=== PATIENT | male | born 1940 | race Caucasian/White ===

== ENCOUNTER 2019-01-30 21:28 | Emergency (ER) | payer MEDICARE, OTHER ==
[2019-01-30 21:37] VITALS: BP 109/59
--- NOTE | 2019-01-30 22:31 | EDM.PDOC ---
ED HPI GENERAL MEDICAL PROBLEM - General Chief Complaint: Laceration Stated Complaint: fell at home Time Seen by Provider: 01/30/19 21:36 Source of Information: Reports: Patient, Family, Shelter Records, RN Notes Reviewed History Limitations: Reports: No Limitations - History of Present Illness INITIAL COMMENTS - FREE TEXT/NARRATIVE: Patient is an 78-year-old male who is a resident at [place] who presents with his daughter for the evaluation of a fall. He states that around approximately 7 PM tonight he had spilled some food on the floor and he went to pick this food up from the floor when he lost his balance. He ended up hitting his on the carpeted floor in front of him. He denies any dizziness before the fall. He denies any loss of consciousness, blacking out, or headache after the fall. He has one abrasion on the bridge of his nose and a small laceration to his left eyebrow. It did take some time for the bleeding to stop in his left eyebrow injury. The patient states that he is only on aspirin and not on any other blood thinners. He further denies any blurred/double vision at this time , he denies pain anywhere else as well. - Related Data Allergies Allergy/AdvReac Type Severity Reaction Status Date / Time amlodipine Allergy Cannot Verified 01/30/19 21:37 Remember amlodipine besylate Allergy Cannot Verified 01/30/19 21:37 [From [facility]] Remember Home Meds: Home Meds Acetaminophen [Tylenol Arthritis Pain] 650 mg PO BID 02/19/16 [History] Acetaminophen [Tylenol Arthritis Pain] 650 mg PO Q8H PRN 02/19/16 [History] Calcium Carbonate/Vitamin D3 [Calcium 600-Vit D3 400 Tablet] 1 each PO BID 02/18 [History] Dextran 70/Hypromellose [Artificial Tears] 1 drop OP TID 02/19/16 [History] Fluticasone Propionate [Flonase] 1 spray NASBOTH DAILY 02/19/16 [History] Furosemide [Lasix] 80 mg PO DAILY 02/19/16 [History] Glucosamine/D3/Boswellia Miri [Osteo Bi-Flex Caplet] 1 each PO BID 02/19/16 [ History] Labetalol [Normodyne] 100 mg PO BID 02/19/16 [History] Levothyroxine Sodium [Synthroid] 125 mcg PO DAILY 02/19/16 [History] Mag Hydrox/Aluminum Hyd/Simeth [Antacid Liquid] 30 ml PO Q4H PRN 02/19/16 [ History] Meloxicam 15 mg PO DAILY 02/19/16 [History] Multivitamin [Multivitamins] 1 each PO DAILY 02/19/16 [History] Potassium Chloride 20 meq PO DAILY 02/19/16 [History] Spironolactone [Aldactone] 25 mg PO BID 02/19/16 [History] traZODone 150 mg PO BEDTIME 02/19/16 [History] Aspirin 325 mg PO DAILY PRN 01/30/19 [History] Furosemide 40 mg PO 1200 01/30/19 [History] Ibuprofen [Advil] 400 mg PO Q6H PRN 01/30/19 [History] Zolpidem [Ambien] 5 mg PO BEDTIME PRN 01/30/19 [History] Past Medical History - Past Health History Medical/Surgical History: Denies Medical/Surgical History HEENT History: Reports: Hard of Hearing, Impaired Vision Cardiovascular History: Reports: CAD, Heart Failure, High Cholesterol, Hypertension Musculoskeletal History: Reports: Arthritis, Back Pain, Chronic, Other (See Below) Other Musculoskeletal History: DDD Neurological History: Reports: Other (See Below) Other Neuro History: Dementia Psychiatric History: Reports: Dementia Endocrine/Metabolic History: Reports: Hypothyroidism Social & Family History - Family History Cardiac: Reports: Pacemaker GI: Reports: Other (See Below) Other GI Family History: STOMACH CANCER - Tobacco Use Smoking Status *Q: Never Smoker - Recreational Drug Use Recreational Drug Use: No ED ROS GENERAL - Review of Systems Review Of Systems: See Below Constitutional: Reports: No Symptoms HEENT: Reports: No Symptoms Respiratory: Reports: No Symptoms Cardiovascular: Reports: No Symptoms Endocrine: Reports: No Symptoms GI/Abdominal: Reports: No Symptoms : Reports: No Symptoms Musculoskeletal: Reports: No Symptoms Skin: Reports: Wound (See history of present illness) Neurological: Denies: Confusion, Dizziness, Headache, Seizure, Syncope, Difficulty Walking, Weakness Psychiatric: Reports: No Symptoms Hematologic/Lymphatic: Reports: No Symptoms Immunologic: Reports: No Symptoms ED EXAM, SKIN/RASH Exam: See Below Exam Limited By: No Limitations General Appearance: Alert, WD/WN, No Apparent Distress Eye Exam: Left Eye: Periorbital Changes (Bruising noted around his left eye, due to the trauma sustained to his left eyebrow.), Bilateral Eye: Normal Inspection Ears: Normal External Exam, Normal TMs Nose: Other (Small laceration to bridge of nose that is scabbed over and not actively bleeding at this time. No nasal bleeding noted no nasal tenderness noted) Throat/Mouth: Normal Inspection, Normal Lips, Normal Teeth, Normal Oropharynx, Normal Voice, No Airway Compromise Head: Normocephalic, Other (Laceration to left eyebrow and abrasion to bridge of nose) Neck: Normal Inspection, Supple, Non-Tender, Full Range of Motion Respiratory/Chest: No Respiratory Distress, Lungs Clear, Normal Breath Sounds, No Accessory Muscle Use, Chest Non-Tender Cardiovascular: Normal Peripheral Pulses, Regular Rate, Rhythm, No Edema, No Murmur Extremities: Normal Inspection, Normal Capillary Refill Neurological: Alert, Oriented, Normal Cognition, Normal Gait, No Motor/Sensory Deficits Psychiatric: Normal Affect, Normal Mood Skin: Warm, Dry, Normal Color, No Rash, Wound/Incision (Approximately 1 cm linear laceration to the left eyebrow.) Location, Skin: Face ED SKIN PROCEDURES - Laceration/Wound Repair Medial Nose Lac/Wound length In cm: 1 (Skin abrasion) Skin Prep: Saline Closed with: Dermabond Left Face Lac/Wound length In cm: 1 (Left eyebrow) Appearance: Clean Skin Prep: Saline Closed with: Dermabond, Steri-Strips Course - Vital Signs Last Recorded V/S: Last Vital Signs Temp 98.8 F 01/30/19 21:34 Pulse 56 L 01/30/19 21:34 Resp 16 01/30/19 21:34 BP 109/59 L 01/30/19 21:34 Pulse Ox 96 01/30/19 21:34 Orthostatic Blood Pressure [] 81/48 Orthostatic Blood Pressure [] 105/61 Orthostatic Blood Pressure [] 105/56 - Re-Assessments/Exams Free Text/Narrative Re-Assessment/Exam: 01/30/19 22:34 Patient presents to the ED for the evaluation of a fall earlier this evening. He did sustain a small abrasion to his nose which will likely be repaired with Dermabond and does have a 1 cm linear laceration to his left eyebrow. I am having the nurse clean these up and will likely try to either use Dermabond on the eyebrow or Steri-Strips for repair. These do not appear to be deep enough to need stitches at this time. I have also requested that the nurse do orthostatic vital signs as the patient's blood pressure at time of evaluation was 90/60. The patient assures me that he gets his blood pressure checked at the skilled nursing and that this is within normal limits and there is no need to worry. Due to the mechanism of injury to this fall I do not feel that a head CT is warranted due to lack of symptoms at this time. The daughter will be educated on return precautions. Departure - Departure Time of Disposition: 23:01 Disposition: Home, Self-Care 01 Condition: Fair Clinical Impression: Laceration of left eyebrow Qualifiers: Encounter type: initial encounter Qualified Code(s): S01.112A - Laceration without foreign body of left eyelid and periocular area, initial encounter Abrasion of nose Qualifiers: Encounter type: initial encounter Qualified Code(s): S00.31XA - Abrasion of nose, initial encounter - Discharge Information *PRESCRIPTION DRUG MONITORING PROGRAM REVIEWED*: No *COPY OF PRESCRIPTION DRUG MONITORING REPORT IN PATIENT TWAN: No Instructions: Stitches, Chao, or Adhesive Wound Closure, [id number], Sterile Tape Wound Care Referrals: Stan Kang MD [Primary Care Provider] - Forms: ED Department Discharge Additional Instructions: You have been evaluated in the ED today for your left eyebrow laceration and nose abrasion. These have been treated with Dermabond and your left eyebrow has been also treated with Steri-Strips. Do not be surprised if you develop a worsening black eye over the next few days as this would be the blood settling. This should get better shortly. If you should develop any worsening headache, increased blurred vision/double vision, dizziness these would be cause for concern and you should come directly back to the ED for further evaluation. Please return to the ED if his symptoms should change or worsen.
== END 2019-01-30 23:15 | disposition home or self-care (01) ==
LOC: JD.ED 21:28
DX: S01.112A Laceration without foreign body of left eyelid and periocular area, initial encounter (principal); S00.31XA Abrasion of nose, initial encounter; I25.10 Atherosclerotic heart disease of native coronary artery without angina pectoris; I50.9 Heart failure, unspecified; E78.00 Pure hypercholesterolemia, unspecified; I10 Essential (primary) hypertension; E03.9 Hypothyroidism, unspecified; Z88.8 Allergy status to other drugs, medicaments and biological substances; W01.0XXA Fall on same level from slipping, tripping and stumbling without subsequent striking against object, initial encounter; Z79.899 Other long term (current) drug therapy
CPT/HCPCS: 12011; 99282; 99283

== ENCOUNTER 2021-06-20 15:38 | Inpatient (IN) | payer MEDICARE, OTHER ==
--- NOTE | 2021-06-20 16:42 | CR ---
Chest: Portable view of the chest was obtained. Comparison: Chest x-ray of 04/03/16. Small right-sided pleural effusion is seen. Areas of scarring are seen within the right base. These findings are stable from prior exam. Multiple left-sided rib fractures are noted which are stable. Severe degenerative change is seen within the right shoulder. Heart size is mildly enlarged. Upper mediastinum is normal. Impression: 1. Numerous findings as noted above. 2. Nothing acute is appreciated on portable chest x-ray. Diagnostic code #2
--- NOTE | 2021-06-20 16:58 | EDM.PDOC ---
ED HPI GENERAL MEDICAL PROBLEM - General Chief Complaint: Respiratory Problem Stated Complaint: SOB/COUGH Time Seen by Provider: 06/20/21 16:20 Source of Information: Reports: Patient, RN Notes Reviewed History Limitations: Reports: No Limitations - History of Present Illness INITIAL COMMENTS - FREE TEXT/NARRATIVE: Patient is an 81-year-old male who presents to the ER with a family member for the evaluation of his cough and shortness of breath. Patient resides at [place]. The family member notes that over the last few days, his cough has gotten significantly worse, and the patient is complaining of shortness of breath. He does state that he has had a cough for some months, but he has an increase in clear phlegm production. The family member the room states that th is is very sick. The patient is very hard of hearing, so the family member provided most of the history. Patient has had a large amount of watery diarrhea as well, and he has had a poor appetite with subsequent weight loss. There is associated weakness, and back discomfort. Family member did state that this seems to have sharply declined over the last 2 weeks as well. He is being seen by Dr. Morrison, and is supposed to be having an ultrasound, of the kidneys, and a chest CT for nodule that was identified. This is supposed to be getting done outpatient. Patient is on oxygen as needed at night as well. Patient did have Covid last year, and has subsequently gotten the mold during a vaccine and is fully vaccinated. He has not had any fevers, or chills, he has had the increased cough, and dyspnea but no nausea or vomiting. - Related Data Allergies Allergy/AdvReac Type Severity Reaction Status Date / Time amlodipine Allergy Cannot Verified 06/20/21 16:06 Remember amlodipine besylate Allergy Cannot Verified 06/20/21 16:06 [From [facility]] Remember Home Meds: Home Meds Acetaminophen [Tylenol Arthritis Pain] 650 mg PO BID 02/19/16 [History] Acetaminophen [Tylenol Arthritis Pain] 650 mg PO Q8H PRN 02/19/16 [History] Calcium Carbonate/Vitamin D3 [Calcium 600-Vit D3 400 Tablet] 1 each PO BID 02/19/16 [History] Fluticasone Propionate [Flonase] 1 spray NASBOTH DAILY 02/19/16 [History] Glucosamine/D3/Boswellia Miri [Osteo Bi-Flex Caplet] 1 each PO BID 02/19/16 [History] Labetalol [Normodyne] 100 mg PO BID 02/19/16 [History] Levothyroxine Sodium [Synthroid] 125 mcg PO DAILY 02/19/16 [History] Mag Hydrox/Aluminum Hyd/Simeth [Antacid Liquid] 30 ml PO Q4H PRN 02/19/16 [History] Meloxicam 15 mg PO DAILY 02/19/16 [History] Multivitamin [Multivitamins] 1 each PO DAILY 02/19/16 [History] Potassium Chloride 20 meq PO DAILY 02/19/16 [History] traZODone 150 mg PO BEDTIME 02/19/16 [History] Ibuprofen [Advil] 400 mg PO Q6H PRN 01/30/19 [History] Carboxymethylcellulose Sodium [Artificial Tears] 15 ml EYEBOTH QID 06/20/21 [History] Cyanocobalamin (Vitamin B-12) [Vitamin B-12] 1 tab PO DAILY 06/20/21 [History] Furosemide [Lasix] 40 mg PO BID 06/20/21 [History] Glucosamine/D3/Boswellia Miri [Osteo Bi-Flex Caplet] 1 tab PO BID 06/20/21 [History] Mirtazapine [Remeron] 15 mg PO DAILY 06/20/21 [History] Tiotropium [place] [Spiriva Respimat] 2 puff IH DAILY 06/20/21 [History] Past Medical History HEENT History: Reports: Hard of Hearing, Impaired Vision 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 Cardiovascular History: Reports: CAD, Heart Failure, High Cholesterol, Hypertension Musculoskeletal History: Reports: Arthritis, Back Pain, Chronic, Other (See Below) Other Musculoskeletal History: DJD Psychiatric History: Reports: Dementia Endocrine/Metabolic History: Reports: Hypothyroidism Oncologic (Cancer) History: Reports: Other (See Below) Other Oncologic History: lung nodule- that pcp is monitoring - Infectious Disease History Infectious Disease History: Reports: Novel Coronavirus (in aug 2020) Social & Family History - Family History Cardiac: Reports: Pacemaker GI: Reports: Other (See Below) Other GI Family History: STOMACH CANCER - Tobacco Use Packs/Tins Daily: 0.2 Used Tobacco, but Quit: No - Caffeine Use Caffeine Use: Reports: Coffee - Recreational Drug Use Recreational Drug Use: No ED ROS GENERAL - Review of Systems Review Of Systems: Comprehensive ROS is negative, except as noted in HPI. ED EXAM, GENERAL - Physical Exam Exam: See Below Exam Limited By: No Limitations General Appearance: Alert, WD/WN, No Apparent Distress Respiratory/Chest: No Respiratory Distress, Lungs Clear, Normal Breath Sounds, No Accessory Muscle Use, Chest Non-Tender Cardiovascular: Normal Peripheral Pulses, Regular Rate, Rhythm, No Edema Peripheral Pulses: 2+: Radial (L), Radial (R) GI/Abdominal: Normal Bowel Sounds, Soft, Non-Tender, No Distention, No Mass Extremities: Normal Inspection, Normal Capillary Refill Neurological: Alert, Oriented, Normal Cognition, No Motor/Sensory Deficits Psychiatric: Normal Affect, Normal Mood Skin Exam: Warm, Dry, Intact, Normal Color, No Rash #1 Interpretation EKG Date: 06/20/21 Time: 16:33 Rhythm: NSR Rate (Beats/Min): 71 [place]: Normal P-Wave: Present QRS: Normal ST-T: Normal QT: Normal EKG Interpretation Comments: No obvious ischemia or acute ST changes noted, reviewed by myself and Dr. Sanchez. Course - Vital Signs Last Recorded V/S: Last Vital Signs Temp 98.1 F 06/20/21 15:59 Pulse 70 06/20/21 15:59 Resp 20 06/20/21 15:59 BP 107/76 06/20/21 15:59 Pulse Ox 98 06/20/21 15:59 - Orders/Labs/Meds Orders: Active Orders 24 hr Category Date Time Status EKG Documentation Completion [RC] STAT Care 06/20/21 16:21 Active Peripheral IV Care [RC] . DIRECTED Care 06/20/21 18:11 Active PROCALCITONIN [REF] Stat Lab 06/20/21 20:19 Ordered Sodium Chloride 0.9% [Normal Saline] 45 ml Med 06/20/21 18:45 Active IV ASDIRECTED Sodium Chloride 0.9% [Saline Flush] Med 06/20/21 18:11 Active 10 ml FLUSH ASDIRECTED PRN Sodium Chloride 0.9% [Saline Flush] Med 06/20/21 18:42 Active 10 ml FLUSH ONETIME PRN Peripheral IV Insertion Adult [OM.PC] Routine Oth 06/20/21 18:11 Ordered Medication Orders Sodium Chloride (Normal Saline) 45 mls @ 40 mls/hr IV ASDIRECTED BLAYNE Last Admin: 06/20/21 19:42 Dose: 40 mls/hr Documented by: SHERRY Sodium Chloride (Sodium Chloride 0.9% 10 Ml Syringe) 10 ml FLUSH ASDIRECTED PRN PRN Reason: Keep Vein Open Sodium Chloride (Sodium Chloride 0.9% 10 Ml Syringe) 10 ml FLUSH ONETIME PRN PRN Reason: Keep Vein Open Last Admin: 06/20/21 19:42 Dose: 10 ml Documented by: SHERRY Labs: Laboratory Tests 06/20/21 06/20/21 06/20/21 Range/Units 16:33 16:33 16:33 WBC 10.83 H (4.23-9.07) K/mm3 RBC 4.50 L (4.63-6.08) M/mm3 Hgb 14.6 D (13.7-17.5) gm/dl Hct 41.8 (40.1-51.0) % MCV 92.9 H (79.0-92.2) fl MCH 32.4 H (25.7-32.2) pg MCHC 34.9 (32.2-35.5) g/dl RDW Std Deviation 48.1 H (35.1-43.9) fL Plt Count 223 D (163-337) K/mm3 MPV 9.2 L (9.4-12.3) fl Neut % (Auto) 84.5 H (34.0-67.9) % Lymph % (Auto) 8.9 L (21.8-53.1) % Bro[place] % (Auto) 5.8 (5.3-12.2) % Eos % (Auto) 0.6 L (0.8-7.0) Baso % (Auto) 0.2 (0.1-1.2) % Neut # (Auto) 9.15 H (1.78-5.38) K/mm3 Lymph # (Auto) 0.96 L (1.32-3.57) K/mm3 Brooke # (Auto) 0.63 (0.30-0.82) K/mm3 Eos # (Auto) 0.07 (0.04-0.54) K/mm3 Baso # (Auto) 0.02 (0.01-0.08) K/mm3 Manual Slide Review Abnormal smear PT 11.0 (9.7-12.0) SECONDS INR 1.03 APTT 29.7 (21.7-31.4) SECONDS D-Dimer, Quantitative 1.52 H (0.19-0.50) mg/L Sodium (136-145) mEq/L Potassium (3.5-5.1) mEq/L Chloride (98-107) mEq/L Carbon Dioxide (21-32) mEq/L Anion Gap (5-15) BUN (7-18) mg/dL Creatinine (0.7-1.3) mg/dL Est Cr Clr Drug Dosing mL/min Estimated GFR (MDRD) (>60) mL/min BUN/Creatinine Ratio (14-18) Glucose (70-99) mg/dL Calcium (8.5-10.1) mg/dL Magnesium (1.8-2.4) mg/dL Ferritin (26-388) ng/ml Total Bilirubin (0.2-1.0) mg/dL AST (15-37) U/L ALT (16-63) U/L Alkaline Phosphatase (46-116) U/L Lactate Dehydrogenase (85-227) U/L Troponin I (0.00-0.056) ng/mL C-Reactive Protein 2.0 H* (<1.0) mg/dL NT-Pro-B Natriuret Pep (0-450) pg/mL Total Protein (6.4-8.2) g/dl Albumin (3.4-5.0) g/dl Globulin gm/dL Albumin/Globulin Ratio (1-2) Urine Color (Yellow) Urine Appearance (Clear) Urine pH (5.0-8.0) Ur Specific [place] (1.005-1.030) Urine Protein (Negative) Urine Glucose (UA) (Negative) Urine Ketones (Negative) Urine Occult Blood (Negative) Urine Nitrite (Negative) Urine Bilirubin (Negative) Urine Urobilinogen (0.2-1.0) Ur Leukocyte Esterase (Negative) Urine RBC (0-5) /hpf Urine WBC (0-5) /hpf Ur Squamous Epith Cells (0-5) /hpf Urine Bacteria (FEW) /hpf Urine Mucus (FEW) /hpf Influenza Type A RNA (NEGATIVE) Influenza Type B RNA (NEGATIVE) SARS-CoV-2 RNA (TIM) (NEGATIVE) 06/20/21 06/20/21 06/20/21 Range/Units 16:33 16:33 16:33 WBC (4.23-9.07) K/mm3 RBC (4.63-6.08) M/mm3 Hgb (13.7-17.5) gm/dl Hct (40.1-51.0) % MCV (79.0-92.2) fl MCH (25.7-32.2) pg MCHC (32.2-35.5) g/dl RDW Std Deviation (35.1-43.9) fL Plt Count (163-337) K/mm3 MPV (9.4-12.3) fl Neut % (Auto) (34.0-67.9) % Lymph % (Auto) (21.8-53.1) % Brooke % (Auto) (5.3-12.2) % Eos % (Auto) (0.8-7.0) Baso % (Auto) (0.1-1.2) % Neut # (Auto) (1.78-5.38) K/mm3 Lymph # (Auto) (1.32-3.57) K/mm3 Bro[place] # (Auto) (0.30-0.82) K/mm3 Eos # (Auto) (0.04-0.54) K/mm3 Baso # (Auto) (0.01-0.08) K/mm3 Manual Slide Review PT (9.7-12.0) SECONDS INR APTT (21.7-31.4) SECONDS D-Dimer, Quantitative (0.19-0.50) mg/L Sodium 132 L (136-145) mEq/L Potassium 5.6 H D (3.5-5.1) mEq/L Chloride 101 (98-107) mEq/L Carbon Dioxide 23 (21-32) mEq/L Anion Gap 13.6 (5-15) BUN 29 H (7-18) mg/dL Creatinine 1.7 H (0.7-1.3) mg/dL Est Cr Clr Drug Dosing 32.74 mL/min Estimated GFR (MDRD) 39 (>60) mL/min BUN/Creatinine Ratio 17.1 (14-18) Glucose 115 H (70-99) mg/dL Calcium 8.5 (8.5-10.1) mg/dL Magnesium 2.0 (1.8-2.4) mg/dL Ferritin 995 H (26-388) ng/ml Total Bilirubin 0.6 (0.2-1.0) mg/dL AST 23 (15-37) U/L ALT 30 (16-63) U/L Alkaline Phosphatase 104 (46-116) U/L Lactate Dehydrogenase 186 (85-227) U/L Troponin I 0.052 (0.00-0.056) ng/mL C-Reactive Protein (<1.0) mg/dL NT-Pro-B Natriuret Pep 1329 H (0-450) pg/mL Total Protein 6.7 (6.4-8.2) g/dl Albumin 3.0 L (3.4-5.0) g/dl Globulin 3.7 gm/dL Albumin/Globulin Ratio 0.8 L (1-2) Urine Color (Yellow) Urine Appearance (Clear) Urine pH (5.0-8.0) Ur Specific [place] (1.005-1.030) Urine Protein (Negative) Urine Glucose (UA) (Negative) Urine Ketones (Negative) Urine Occult Blood (Negative) Urine Nitrite (Negative) Urine Bilirubin (Negative) Urine Urobilinogen (0.2-1.0) Ur Leukocyte Esterase (Negative) Urine RBC (0-5) /hpf Urine WBC (0-5) /hpf Ur Squamous Epith Cells (0-5) /hpf Urine Bacteria (FEW) /hpf Urine Mucus (FEW) /hpf Influenza Type A RNA (NEGATIVE) Influenza Type B RNA (NEGATIVE) SARS-CoV-2 RNA (TIM) (NEGATIVE) 06/20/21 06/20/21 06/20/21 Range/Units 16:52 18:15 18:29 WBC (4.23-9.07) K/mm3 RBC (4.63-6.08) M/mm3 Hgb (13.7-17.5) gm/dl Hct (40.1-51.0) % MCV (79.0-92.2) fl MCH (25.7-32.2) pg MCHC (32.2-35.5) g/dl RDW Std Deviation (35.1-43.9) fL Plt Count (163-337) K/mm3 MPV (9.4-12.3) fl Neut % (Auto) (34.0-67.9) % Lymph % (Auto) (21.8-53.1) % [place] % (Auto) (5.3-12.2) % Eos % (Auto) (0.8-7.0) Baso % (Auto) (0.1-1.2) % Neut # (Auto) (1.78-5.38) K/mm3 Lymph # (Auto) (1.32-3.57) K/mm3 [place] # (Auto) (0.30-0.82) K/mm3 Eos # (Auto) (0.04-0.54) K/mm3 Baso # (Auto) (0.01-0.08) K/mm3 Manual Slide Review PT (9.7-12.0) SECONDS INR APTT (21.7-31.4) SECONDS D-Dimer, Quantitative (0.19-0.50) mg/L Sodium (136-145) mEq/L Potassium 5.5 H (3.5-5.1) mEq/L Chloride (98-107) mEq/L Carbon Dioxide (21-32) mEq/L Anion Gap (5-15) BUN (7-18) mg/dL Creatinine (0.7-1.3) mg/dL Est Cr Clr Drug Dosing mL/min Estimated GFR (MDRD) (>60) mL/min BUN/Creatinine Ratio (14-18) Glucose (70-99) mg/dL Calcium (8.5-10.1) mg/dL Magnesium (1.8-2.4) mg/dL Ferritin (26-388) ng/ml Total Bilirubin (0.2-1.0) mg/dL AST (15-37) U/L ALT (16-63) U/L Alkaline Phosphatase (46-116) U/L Lactate Dehydrogenase (85-227) U/L Troponin I (0.00-0.056) ng/mL C-Reactive Protein (<1.0) mg/dL NT-Pro-B Natriuret Pep (0-450) pg/mL Total Protein (6.4-8.2) g/dl Albumin (3.4-5.0) g/dl Globulin gm/dL Albumin/Globulin Ratio (1-2) Urine Color Yellow (Yellow) Urine Appearance Clear (Clear) Urine pH 6.0 (5.0-8.0) Ur Specific [place] 1.020 (1.005-1.030) Urine Protein Negative (Negative) Urine Glucose (UA) Negative (Negative) Urine Ketones Negative (Negative) Urine Occult Blood 2+ H (Negative) Urine Nitrite Negative (Negative) Urine Bilirubin Negative (Negative) Urine Urobilinogen 0.2 (0.2-1.0) Ur Leukocyte Esterase Negative (Negative) Urine RBC 5-10 H (0-5) /hpf Urine WBC 0-5 (0-5) /hpf Ur Squamous Epith Cells 0-5 (0-5) /hpf Urine Bacteria Few (FEW) /hpf Urine Mucus Few (FEW) /hpf Influenza Type A RNA Negative (NEGATIVE) Influenza Type B RNA Negative (NEGATIVE) SARS-CoV-2 RNA (TIM) Negative (NEGATIVE) 06/20/21 Range/Units 19:22 WBC (4.23-9.07) K/mm3 RBC (4.63-6.08) M/mm3 Hgb (13.7-17.5) gm/dl Hct (40.1-51.0) % MCV (79.0-92.2) fl MCH (25.7-32.2) pg MCHC (32.2-35.5) g/dl RDW Std Deviation (35.1-43.9) fL Plt Count (163-337) K/mm3 MPV (9.4-12.3) fl Neut % (Auto) (34.0-67.9) % Lymph % (Auto) (21.8-53.1) % [place] % (Auto) (5.3-12.2) % Eos % (Auto) (0.8-7.0) Baso % (Auto) (0.1-1.2) % Neut # (Auto) (1.78-5.38) K/mm3 Lymph # (Auto) (1.32-3.57) K/mm3 [place] # (Auto) (0.30-0.82) K/mm3 Eos # (Auto) (0.04-0.54) K/mm3 Baso # (Auto) (0.01-0.08) K/mm3 Manual Slide Review PT (9.7-12.0) SECONDS INR APTT (21.7-31.4) SECONDS D-Dimer, Quantitative (0.19-0.50) mg/L Sodium (136-145) mEq/L Potassium (3.5-5.1) mEq/L Chloride (98-107) mEq/L Carbon Dioxide (21-32) mEq/L Anion Gap (5-15) BUN (7-18) mg/dL Creatinine (0.7-1.3) mg/dL Est Cr Clr Drug Dosing mL/min Estimated GFR (MDRD) (>60) mL/min BUN/Creatinine Ratio (14-18) Glucose (70-99) mg/dL Calcium (8.5-10.1) mg/dL Magnesium (1.8-2.4) mg/dL Ferritin (26-388) ng/ml Total Bilirubin (0.2-1.0) mg/dL AST (15-37) U/L ALT (16-63) U/L Alkaline Phosphatase (46-116) U/L Lactate Dehydrogenase (85-227) U/L Troponin I 0.062 H* (0.00-0.056) ng/mL C-Reactive Protein (<1.0) mg/dL NT-Pro-B Natriuret Pep (0-450) pg/mL Total Protein (6.4-8.2) g/dl Albumin (3.4-5.0) g/dl Globulin gm/dL Albumin/Globulin Ratio (1-2) Urine Color (Yellow) Urine Appearance (Clear) Urine pH (5.0-8.0) Ur Specific [place] (1.005-1.030) Urine Protein (Negative) Urine Glucose (UA) (Negative) Urine Ketones (Negative) Urine Occult Blood (Negative) Urine Nitrite (Negative) Urine Bilirubin (Negative) Urine Urobilinogen (0.2-1.0) Ur Leukocyte Esterase (Negative) Urine RBC (0-5) /hpf Urine WBC (0-5) /hpf Ur Squamous Epith Cells (0-5) /hpf Urine Bacteria (FEW) /hpf Urine Mucus (FEW) /hpf Influenza Type A RNA (NEGATIVE) Influenza Type B RNA (NEGATIVE) SARS-CoV-2 RNA (TIM) (NEGATIVE) Meds: Medications Generic Name Dose Route Start Last Admin Trade Name Freq PRN Reason Stop Dose Admin Sodium Chloride 45 mls @ 40 mls/hr 06/20/21 18:45 06/20/21 19:42 Normal Saline IV 40 mls/hr ASDIRECTED BLAYNE Administration Sodium Chloride 10 ml 06/20/21 18:11 Sodium Chloride 0.9% 10 Ml Syringe FLUSH ASDIRECTED PRN Keep Vein Open Sodium Chloride 10 ml 06/20/21 18:42 06/20/21 19:42 Sodium Chloride 0.9% 10 Ml Syringe FLUSH 10 ml ONETIME PRN Administration Keep Vein Open Discontinued Medications Generic Name Dose Route Start Last Admin Trade Name Freq PRN Reason Stop Dose Admin Aspirin 324 mg 06/20/21 20:28 Aspirin 81 Mg Tab.Chew PO 06/20/21 20:29 ONETIME ONE Azithromycin 500 mg 06/20/21 20:26 Azithromycin 250 Mg Tab PO 06/20/21 20:27 ONETIME ONE Cefdinir 300 mg 06/20/21 20:23 Cefdinir 300 Mg Cap PO 06/20/21 20:24 ONETIME ONE Furosemide 40 mg 06/20/21 20:23 Furosemide 40 Mg/4 Ml Vial IVPUSH 06/20/21 20:24 NOW ONE Sodium Chloride 1,000 mls @ 500 mls/hr 06/20/21 18:29 06/20/21 19:00 Normal Saline IV 06/20/21 20:28 100 mls/hr ONETIME ONE Infusion Iopamidol 100 ml 06/20/21 18:42 06/20/21 19:42 Iopamidol 755 Mg/Ml 100 Ml Bottle IVPUSH 06/20/21 18:43 100 ml ONETIME ONE Administration Labetalol HCl 100 mg 06/20/21 20:28 Labetalol 100 Mg Tab PO 06/20/21 20:29 ONETIME ONE Prednisone 60 mg 06/20/21 20:23 Prednisone 20 Mg Tab PO 06/20/21 20:24 ONETIME ONE - Re-Assessments/Exams Free Text/Narrative Re-Assessment/Exam: 06/20/21 16:58 Patient presents to the ER for the evaluation of his increased cough and shortness of breath, we will go ahead and do quite a few labs, and obtain a chest x-ray for further evaluation. Patient's blood pressure was somewhat low at time of triage, at 107/76. 06/20/21 18:09 The patient's laboratory evaluation has resulted, CBC is elevated at 10.8, with 84% neutrophils on the auto differential, lymphopenia was noted on the smear. D-dimer is elevated at 1.52, sodium mildly low at 132, potassium is elevated at 5.6, this will be redrawn to make sure there is no hemolyzation present. Creatinine is 1.7, GFR is 39, ferritin elevated at 995, troponin in normal limits but at the upper limit of normal at 0.052, 3-hour level will be drawn as well. CRP is elevated to 2.0, BNP is 1329. Influenza and Covid screen is all negative. 06/20/21 18:52 I did speak with nursing staff taking care of the patient, she was able to get access to his Bond labs, and on June 13, the patient's creatinine was found to be 2.34, and the potassium was elevated at 5.1. The creatinine has improved for today's purposes, but the potassium is also more elevated than it was on the . Patient has been sent to CT for his elevated D-dimer and CT angio. 06/20/21 19:38 Patient's urinalysis demonstrated 2+ occult blood with 5-10 RBCs, this was a catheterized specimen, so this could be trauma versus otherwise. The patient's repeat potassium draw was 5.5. 06/20/21 20:08 CT demonstrates no finding of a pulmonary embolism. There is a small loculated pleural effusion seen within the right base, that appears stable. There is a focal masslike density also noted within the right base, measuring 4.2 cm which appears stable. Volume loss is noted within the right lung which is stable. Slight scarring seen within the right lung which appears stable as well no other acute changes were appreciated. 06/20/21 20:34 Was able to talk with our hospitalist, Dr. Bernstein, he did give me some verbal bridge orders, but did ultimately accept the patient for admission for possible COPD exacerbation versus early pneumonia. Departure - Departure Time of Disposition: 20:34 Disposition: Refer to Observation Condition: Fair Clinical Impression: COPD exacerbation - Discharge Information Referrals: Stan Kang MD [Primary Care Provider] - Forms: ED Department Discharge Sepsis Event Note (ED) - Evaluation Sepsis Screening Result: No Definite Risk - Focused Exam Vital Signs: Vital Signs Temp Pulse Resp BP Pulse Ox 06/20/21 15:59 98.1 F 70 20 107/76 98 - My Orders Last 24 Hours: My Active Orders 06/20/21 16:21 EKG Documentation Completion [RC] STAT 06/20/21 18:11 Peripheral IV Care [RC] . DIRECTED Sodium Chloride 0.9% [Saline Flush] 10 ml FLUSH ASDIRECTED PRN Peripheral IV Insertion Adult [OM.PC] Routine 06/20/21 18:42 Sodium Chloride 0.9% [Saline Flush] 10 ml FLUSH ONETIME PRN 06/20/21 18:45 Sodium Chloride 0.9% [Normal Saline] 45 ml IV ASDIRECTED 06/20/21 20:19 PROCALCITONIN [REF] Stat - Assessment/Plan Last 24 Hours: My Active Orders 06/20/21 16:21 EKG Documentation Completion [RC] STAT 06/20/21 18:11 Peripheral IV Care [RC] . DIRECTED Sodium Chloride 0.9% [Saline Flush] 10 ml FLUSH ASDIRECTED PRN Peripheral IV Insertion Adult [OM.PC] Routine 06/20/21 18:42 Sodium Chloride 0.9% [Saline Flush] 10 ml FLUSH ONETIME PRN 06/20/21 18:45 Sodium Chloride 0.9% [Normal Saline] 45 ml IV ASDIRECTED 06/20/21 20:19 PROCALCITONIN [REF] Stat
[2021-06-20 17:34] LABS: CORONAVIRUS COVID-19 NAA NEGATIVE (NEGATIVE)
[2021-06-20] MEDS ORDERED: Sodium Chloride 0.9% 10 ML Syringe FLUSH PRN ×2 (18:11→18:42)
[2021-06-20] MEDS ORDERED: Sodium Chloride 0.9% 1,000 ML IV ONE (18:29)
[2021-06-20] MEDS ORDERED: Iopamidol 755 Mg/ML 100 ML Bottle IVPUSH ONE (18:42)
[2021-06-20] MEDS ORDERED: Sodium Chloride 0.9% 45 ML IV SCH (18:45)
--- NOTE | 2021-06-20 20:05 | CT ---
CT chest Technique: Multiple axial sections through the chest were obtained. Intravenous contrast was utilized. Study has been performed as a pulmonary angiogram protocol. Comparison: Prior CT chest exam of 02/19/16. Findings: Pulmonary arteries are well opacified. No filling defects are seen to indicate pulmonary embolism. Thoracic aorta shows atherosclerotic calcification with no aneurysm. There is moderate coronary artery calcification noted. No pericardial thickening is seen. Visualized upper abdominal structures shows nothing acute. Small loculated pleural effusion is seen within the right base which is stable. Focal masslike density is also noted within the right base measuring 4.2 cm which is stable. Volume loss is noted within the right lung which is stable. Slight scarring is seen within the right lung which appears to be fairly stable. Lungs otherwise are clear with no acute parenchymal change. Bone window settings were reviewed which shows multiple old sided rib fractures. Degenerative change within the right shoulder is noted. Scattered degenerative change throughout the spine is seen with disc space narrowing and endplate osteophytes. Impression: 1. No findings of pulmonary embolism. 2. Other findings as described above. No acute abnormality is appreciated on CT study of the chest. Diagnostic code #3
[2021-06-20] MEDS ORDERED: Cefdinir 300 MG Cap PO ONE (20:23)
[2021-06-20] MEDS ORDERED: predniSONE 20 MG Tab PO ONE (20:23)
[2021-06-20] MEDS ORDERED: Furosemide 40 MG/4 ML VIAL IVPUSH ONE (20:23)
[2021-06-20] MEDS ORDERED: Azithromycin 250 MG Tab PO ONE (20:26)
[2021-06-20] MEDS ORDERED: Aspirin 81 MG Tab.Chew PO ONE (20:28)
[2021-06-20] MEDS ORDERED: Labetalol 100 MG Tab PO ONE (20:28)
[2021-06-20] MEDS ORDERED: predniSONE 20 MG Tab ONE (21:28)
[2021-06-20] MEDS ORDERED: Benzonatate 100 MG Cap PO PRN (22:56)
[2021-06-20] MEDS ORDERED: Sodium Chloride 0.9% 1,000 ML IV SCH (23:00)
[2021-06-21] MEDS: Albuterol/Ipratropium 3.0-0.5 MG/3 ML Neb Soln NEB SCH ×4 (06:44→20:12)
[2021-06-21] MEDS ORDERED: Ondansetron 4 MG/2 ML SDV IV PRN (07:51)
--- NOTE | 2021-06-21 08:43 | PCM.HP.2 ---
H&P History of Present Illness - General Date of Service: 06/21/21 Admit Problem/Dx: Admission Diagnosis/Problem Admission Diagnosis/Problem Chronic obstructive pulmonary disease Source of Information: Family - History of Present Illness Initial Comments - Free Text/Narative: This is a 81M with PMhx noted below presenting for evaluation of sob, cough and hypoxia. The patient is extremely hard of hearing and hx obtained from daughter. He lives in assisted living and presented to ED yesterday for evaluation of dry cough. In the ED he was hypoxic and requiring supplemental oxygen. He denied chest pain. CXR showed no clear infiltrate. He was noted to have elevated WBC. In the ED he was started on prednisone, antibiotics, duonebs and admitted for further evaluation. Per daughter he has had progressive decline over the last few months. - Related Data Allergies/Adverse Reactions: Allergies Allergy/AdvReac Type Severity Reaction Status Date / Time amlodipine Allergy Cannot Verified 06/20/21 22:32 Remember amlodipine besylate Allergy Cannot Verified 06/20/21 22:32 [From [facility]] Remember Home Medications: Home Meds Acetaminophen [Tylenol Arthritis Pain] 650 mg PO BID 02/19/16 [History] RX: Acetaminophen [Tylenol Arthritis Pain] 650 mg PO Q8H PRN 02/19/16 [History] RX: Calcium Carbonate/Vitamin D3 [Calcium 600-Vit D3 400 Tablet] 1 each PO BID 02/19/16 [History] RX: Fluticasone Propionate [Flonase] 1 spray NASBOTH DAILY 02/19/16 [History] RX: Glucosamine/D3/Boswellia Miri [Osteo Bi-Flex Caplet] 1 each PO DAILY 02/19/16 [History] RX: Labetalol [Normodyne] 100 mg PO BID 02/19/16 [History] RX: Levothyroxine Sodium [Synthroid] 125 mcg PO DAILY 02/19/16 [History] RX: Meloxicam 15 mg PO DAILY 02/19/16 [History] RX: Multivitamin [Multivitamins] 1 each PO DAILY 02/19/16 [History] RX: Potassium Chloride 20 meq PO DAILY 02/19/16 [History] RX: traZODone 225 mg PO BEDTIME 02/19/16 [History] Ibuprofen [Advil] 400 mg PO Q8HR PRN 01/30/19 [History] Carboxymethylcellulose Sodium [Artificial Tears] 15 ml EYEBOTH QID 06/20/21 [History] Cyanocobalamin (Vitamin B-12) [Vitamin B-12] 1 tab PO DAILY 06/20/21 [History] Furosemide [Lasix] 40 mg PO BID 06/20/21 [History] Mirtazapine [Remeron] 15 mg PO BEDTIME 06/20/21 [History] Tiotropium [place] [Spiriva Respimat] 2 puff IH DAILY 06/20/21 [History] Glucosamine/D3/Boswellia Miri [Osteo Bi-Flex Tablet] 1 each PO BID 06/21/21 [History] Spironolactone [Aldactone] 25 mg PO DAILY 06/21/21 [History] Past Medical History - Past Health History Medical/Surgical History: Denies Medical/Surgical History HEENT History: Reports: Hard of Hearing, Impaired Vision 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 mass on lung- monitoring and pts daughter states it has remained unchanged. Genitourinary History: Reports: Other (See Below) Other Genitourinary History: pts daughter states they're watching his kidney labs and recheck in 1 week from today to monitor kidney function Musculoskeletal History: Reports: Arthritis, Back Pain, Chronic, Other (See Below) Other Musculoskeletal History: DJD Neurological History: Reports: Other (See Below) Other Neuro History: Dementia. 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 Psychiatric History: Reports: Dementia Endocrine/Metabolic History: Reports: Hypothyroidism Oncologic (Cancer) History: Reports: Other (See Below) Other Oncologic History: lung nodule- that pcp is monitoring Dermatologic History: Reports: Other (See Below) Other Dermatologic History: brown discoloration to bilateral legs - Infectious Disease History Infectious Disease History: Reports: Chicken Pox, Measles, Mumps, Novel Coronavirus Social & Family History - Family History Cardiac: Reports: Pacemaker GI: Reports: Other (See Below) Other GI Family History: STOMACH CANCER - Tobacco Use Tobacco Use Status *Q: Current Every Day Tobacco User Years of Tobacco use: 50 Packs/Tins Daily: 0.1 Used Tobacco, but Quit: No - Caffeine Use Caffeine Use: Reports: Coffee, Soda - Recreational Drug Use Recreational Drug Use: No H&P Review of Systems - Review of Systems: Review Of Systems: Unable To Obtain Reason Not Obtained: difficulty hearing Exam - Exam Exam: See Below - Vital Signs Vital Signs: Last Vital Signs Temp 98.2 F 06/21/21 03:55 Pulse 67 06/21/21 03:54 Resp 16 06/21/21 03:54 BP 110/76 06/21/21 03:54 Pulse Ox 100 06/21/21 06:45 Weight: 154 lb 6.4 oz - Exam General: Alert, Oriented HEENT: EOMI, Mucosa Moist & [place], Nares Patent Neck: Supple Lungs: Decreased Breath Sounds Cardiovascular: Regular Rate, Regular Rhythm, Normal S1, Normal S2 GI/Abdominal Exam: Soft, Non-Tender, No Distention Extremities: No Pedal Edema Skin: Warm, Dry, Intact Neuro Extensive - Mental Status: Alert Neuro Extensive - Motor, Sensory, Reflexes: CN II-XII Intact Psychiatric: Alert, Normal Affect - Patient Data Lab Results Last 24 hrs: Laboratory Results - last 24 hr 06/20/21 06/20/21 06/20/21 Range/Units 16:33 16:33 16:33 WBC 10.83 H (4.23-9.07) K/mm3 RBC 4.50 L (4.63-6.08) M/mm3 Hgb 14.6 D (13.7-17.5) gm/dl Hct 41.8 (40.1-51.0) % MCV 92.9 H (79.0-92.2) fl MCH 32.4 H (25.7-32.2) pg MCHC 34.9 (32.2-35.5) g/dl RDW Std Deviation 48.1 H (35.1-43.9) fL Plt Count 223 D (163-337) K/mm3 MPV 9.2 L (9.4-12.3) fl Neut % (Auto) 84.5 H (34.0-67.9) % Lymph % (Auto) 8.9 L (21.8-53.1) % [place] % (Auto) 5.8 (5.3-12.2) % Eos % (Auto) 0.6 L (0.8-7.0) Baso % (Auto) 0.2 (0.1-1.2) % Neut # (Auto) 9.15 H (1.78-5.38) K/mm3 Lymph # (Auto) 0.96 L (1.32-3.57) K/mm3 [place] # (Auto) 0.63 (0.30-0.82) K/mm3 Eos # (Auto) 0.07 (0.04-0.54) K/mm3 Baso # (Auto) 0.02 (0.01-0.08) K/mm3 Manual Slide Review Abnormal smear PT 11.0 (9.7-12.0) SECONDS INR 1.03 APTT 29.7 (21.7-31.4) SECONDS D-Dimer, Quantitative 1.52 H (0.19-0.50) mg/L Sodium (136-145) mEq/L Potassium (3.5-5.1) mEq/L Chloride (98-107) mEq/L Carbon Dioxide (21-32) mEq/L Anion Gap (5-15) BUN (7-18) mg/dL Creatinine (0.7-1.3) mg/dL Est Cr Clr Drug Dosing mL/min Estimated GFR (MDRD) (>60) mL/min BUN/Creatinine Ratio (14-18) Glucose (70-99) mg/dL Calcium (8.5-10.1) mg/dL Magnesium (1.8-2.4) mg/dL Ferritin (26-388) ng/ml Total Bilirubin (0.2-1.0) mg/dL AST (15-37) U/L ALT (16-63) U/L Alkaline Phosphatase (46-116) U/L Lactate Dehydrogenase (85-227) U/L Troponin I (0.00-0.056) ng/mL C-Reactive Protein 2.0 H* (<1.0) mg/dL NT-Pro-B Natriuret Pep (0-450) pg/mL Total Protein (6.4-8.2) g/dl Albumin (3.4-5.0) g/dl Globulin gm/dL Albumin/Globulin Ratio (1-2) Urine Color (Yellow) Urine Appearance (Clear) Urine pH (5.0-8.0) Ur Specific Carbon (1.005-1.030) Urine Protein (Negative) Urine Glucose (UA) (Negative) Urine Ketones (Negative) Urine Occult Blood (Negative) Urine Nitrite (Negative) Urine Bilirubin (Negative) Urine Urobilinogen (0.2-1.0) Ur Leukocyte Esterase (Negative) Urine RBC (0-5) /hpf Urine WBC (0-5) /hpf Ur Squamous Epith Cells (0-5) /hpf Urine Bacteria (FEW) /hpf Urine Mucus (FEW) /hpf Influenza Type A RNA (NEGATIVE) Influenza Type B RNA (NEGATIVE) SARS-CoV-2 RNA (TIM) (NEGATIVE) MRSA (PCR) 06/20/21 06/20/21 06/20/21 Range/Units 16:33 16:33 16:33 WBC (4.23-9.07) K/mm3 RBC (4.63-6.08) M/mm3 Hgb (13.7-17.5) gm/dl Hct (40.1-51.0) % MCV (79.0-92.2) fl MCH (25.7-32.2) pg MCHC (32.2-35.5) g/dl RDW Std Deviation (35.1-43.9) fL Plt Count (163-337) K/mm3 MPV (9.4-12.3) fl Neut % (Auto) (34.0-67.9) % Lymph % (Auto) (21.8-53.1) % [place] % (Auto) (5.3-12.2) % Eos % (Auto) (0.8-7.0) Baso % (Auto) (0.1-1.2) % Neut # (Auto) (1.78-5.38) K/mm3 Lymph # (Auto) (1.32-3.57) K/mm3 [place] # (Auto) (0.30-0.82) K/mm3 Eos # (Auto) (0.04-0.54) K/mm3 Baso # (Auto) (0.01-0.08) K/mm3 Manual Slide Review PT (9.7-12.0) SECONDS INR APTT (21.7-31.4) SECONDS D-Dimer, Quantitative (0.19-0.50) mg/L Sodium 132 L (136-145) mEq/L Potassium 5.6 H D (3.5-5.1) mEq/L Chloride 101 (98-107) mEq/L Carbon Dioxide 23 (21-32) mEq/L Anion Gap 13.6 (5-15) BUN 29 H (7-18) mg/dL Creatinine 1.7 H (0.7-1.3) mg/dL Est Cr Clr Drug Dosing 32.74 mL/min Estimated GFR (MDRD) 39 (>60) mL/min BUN/Creatinine Ratio 17.1 (14-18) Glucose 115 H (70-99) mg/dL Calcium 8.5 (8.5-10.1) mg/dL Magnesium 2.0 (1.8-2.4) mg/dL Ferritin 995 H (26-388) ng/ml Total Bilirubin 0.6 (0.2-1.0) mg/dL AST 23 (15-37) U/L ALT 30 (16-63) U/L Alkaline Phosphatase 104 (46-116) U/L Lactate Dehydrogenase 186 (85-227) U/L Troponin I 0.052 (0.00-0.056) ng/mL C-Reactive Protein (<1.0) mg/dL NT-Pro-B Natriuret Pep 1329 H (0-450) pg/mL Total Protein 6.7 (6.4-8.2) g/dl Albumin 3.0 L (3.4-5.0) g/dl Globulin 3.7 gm/dL Albumin/Globulin Ratio 0.8 L (1-2) Urine Color (Yellow) Urine Appearance (Clear) Urine pH (5.0-8.0) Ur Specific Carbon (1.005-1.030) Urine Protein (Negative) Urine Glucose (UA) (Negative) Urine Ketones (Negative) Urine Occult Blood (Negative) Urine Nitrite (Negative) Urine Bilirubin (Negative) Urine Urobilinogen (0.2-1.0) Ur Leukocyte Esterase (Negative) Urine RBC (0-5) /hpf Urine WBC (0-5) /hpf Ur Squamous Epith Cells (0-5) /hpf Urine Bacteria (FEW) /hpf Urine Mucus (FEW) /hpf Influenza Type A RNA (NEGATIVE) Influenza Type B RNA (NEGATIVE) SARS-CoV-2 RNA (TIM) (NEGATIVE) MRSA (PCR) 06/20/21 06/20/21 06/20/21 Range/Units 16:52 18:15 18:29 WBC (4.23-9.07) K/mm3 RBC (4.63-6.08) M/mm3 Hgb (13.7-17.5) gm/dl Hct (40.1-51.0) % MCV (79.0-92.2) fl MCH (25.7-32.2) pg MCHC (32.2-35.5) g/dl RDW Std Deviation (35.1-43.9) fL Plt Count (163-337) K/mm3 MPV (9.4-12.3) fl Neut % (Auto) (34.0-67.9) % Lymph % (Auto) (21.8-53.1) % [place] % (Auto) (5.3-12.2) % Eos % (Auto) (0.8-7.0) Baso % (Auto) (0.1-1.2) % Neut # (Auto) (1.78-5.38) K/mm3 Lymph # (Auto) (1.32-3.57) K/mm3 [place] # (Auto) (0.30-0.82) K/mm3 Eos # (Auto) (0.04-0.54) K/mm3 Baso # (Auto) (0.01-0.08) K/mm3 Manual Slide Review PT (9.7-12.0) SECONDS INR APTT (21.7-31.4) SECONDS D-Dimer, Quantitative (0.19-0.50) mg/L Sodium (136-145) mEq/L Potassium 5.5 H (3.5-5.1) mEq/L Chloride (98-107) mEq/L Carbon Dioxide (21-32) mEq/L Anion Gap (5-15) BUN (7-18) mg/dL Creatinine (0.7-1.3) mg/dL Est Cr Clr Drug Dosing mL/min Estimated GFR (MDRD) (>60) mL/min BUN/Creatinine Ratio (14-18) Glucose (70-99) mg/dL Calcium (8.5-10.1) mg/dL Magnesium (1.8-2.4) mg/dL Ferritin (26-388) ng/ml Total Bilirubin (0.2-1.0) mg/dL AST (15-37) U/L ALT (16-63) U/L Alkaline Phosphatase (46-116) U/L Lactate Dehydrogenase (85-227) U/L Troponin I (0.00-0.056) ng/mL C-Reactive Protein (<1.0) mg/dL NT-Pro-B Natriuret Pep (0-450) pg/mL Total Protein (6.4-8.2) g/dl Albumin (3.4-5.0) g/dl Globulin gm/dL Albumin/Globulin Ratio (1-2) Urine Color Yellow (Yellow) Urine Appearance Clear (Clear) Urine pH 6.0 (5.0-8.0) Ur Specific Carbon 1.020 (1.005-1.030) Urine Protein Negative (Negative) Urine Glucose (UA) Negative (Negative) Urine Ketones Negative (Negative) Urine Occult Blood 2+ H (Negative) Urine Nitrite Negative (Negative) Urine Bilirubin Negative (Negative) Urine Urobilinogen 0.2 (0.2-1.0) Ur Leukocyte Esterase Negative (Negative) Urine RBC 5-10 H (0-5) /hpf Urine WBC 0-5 (0-5) /hpf Ur Squamous Epith Cells 0-5 (0-5) /hpf Urine Bacteria Few (FEW) /hpf Urine Mucus Few (FEW) /hpf Influenza Type A RNA Negative (NEGATIVE) Influenza Type B RNA Negative (NEGATIVE) SARS-CoV-2 RNA (TIM) Negative (NEGATIVE) MRSA (PCR) 06/20/21 06/20/21 06/21/21 Range/Units 19:22 20:40 05:40 WBC 6.50 (4.23-9.07) K/mm3 RBC 4.04 L (4.63-6.08) M/mm3 Hgb 12.8 L D (13.7-17.5) gm/dl Hct 38.3 L (40.1-51.0) % MCV 94.8 H (79.0-92.2) fl MCH 31.7 (25.7-32.2) pg MCHC 33.4 (32.2-35.5) g/dl RDW Std Deviation 48.1 H (35.1-43.9) fL Plt Count 158 L (163-337) K/mm3 MPV 9.6 (9.4-12.3) fl Neut % (Auto) 92.4 H (34.0-67.9) % Lymph % (Auto) 6.2 L (21.8-53.1) % [place] % (Auto) 0.9 L (5.3-12.2) % Eos % (Auto) 0 L (0.8-7.0) Baso % (Auto) 0.2 (0.1-1.2) % Neut # (Auto) 6.01 H (1.78-5.38) K/mm3 Lymph # (Auto) 0.40 L (1.32-3.57) K/mm3 [place] # (Auto) 0.06 L (0.30-0.82) K/mm3 Eos # (Auto) 0.00 L (0.04-0.54) K/mm3 Baso # (Auto) 0.01 (0.01-0.08) K/mm3 Manual Slide Review Abnormal smear PT (9.7-12.0) SECONDS INR APTT (21.7-31.4) SECONDS D-Dimer, Quantitative (0.19-0.50) mg/L Sodium (136-145) mEq/L Potassium (3.5-5.1) mEq/L Chloride (98-107) mEq/L Carbon Dioxide (21-32) mEq/L Anion Gap (5-15) BUN (7-18) mg/dL Creatinine (0.7-1.3) mg/dL Est Cr Clr Drug Dosing mL/min Estimated GFR (MDRD) (>60) mL/min BUN/Creatinine Ratio (14-18) Glucose (70-99) mg/dL Calcium (8.5-10.1) mg/dL Magnesium (1.8-2.4) mg/dL Ferritin (26-388) ng/ml Total Bilirubin (0.2-1.0) mg/dL AST (15-37) U/L ALT (16-63) U/L Alkaline Phosphatase (46-116) U/L Lactate Dehydrogenase (85-227) U/L Troponin I 0.062 H* (0.00-0.056) ng/mL C-Reactive Protein (<1.0) mg/dL NT-Pro-B Natriuret Pep (0-450) pg/mL Total Protein (6.4-8.2) g/dl Albumin (3.4-5.0) g/dl Globulin gm/dL Albumin/Globulin Ratio (1-2) Urine Color (Yellow) Urine Appearance (Clear) Urine pH (5.0-8.0) Ur Specific Carbon (1.005-1.030) Urine Protein (Negative) Urine Glucose (UA) (Negative) Urine Ketones (Negative) Urine Occult Blood (Negative) Urine Nitrite (Negative) Urine Bilirubin (Negative) Urine Urobilinogen (0.2-1.0) Ur Leukocyte Esterase (Negative) Urine RBC (0-5) /hpf Urine WBC (0-5) /hpf Ur Squamous Epith Cells (0-5) /hpf Urine Bacteria (FEW) /hpf Urine Mucus (FEW) /hpf Influenza Type A RNA (NEGATIVE) Influenza Type B RNA (NEGATIVE) SARS-CoV-2 RNA (TIM) (NEGATIVE) MRSA (PCR) Negative 06/21/21 Range/Units 05:40 WBC (4.23-9.07) K/mm3 RBC (4.63-6.08) M/mm3 Hgb (13.7-17.5) gm/dl Hct (40.1-51.0) % MCV (79.0-92.2) fl MCH (25.7-32.2) pg MCHC (32.2-35.5) g/dl RDW Std Deviation (35.1-43.9) fL Plt Count (163-337) K/mm3 MPV (9.4-12.3) fl Neut % (Auto) (34.0-67.9) % Lymph % (Auto) (21.8-53.1) % [place] % (Auto) (5.3-12.2) % Eos % (Auto) (0.8-7.0) Baso % (Auto) (0.1-1.2) % Neut # (Auto) (1.78-5.38) K/mm3 Lymph # (Auto) (1.32-3.57) K/mm3 [place] # (Auto) (0.30-0.82) K/mm3 Eos # (Auto) (0.04-0.54) K/mm3 Baso # (Auto) (0.01-0.08) K/mm3 Manual Slide Review PT (9.7-12.0) SECONDS INR APTT (21.7-31.4) SECONDS D-Dimer, Quantitative (0.19-0.50) mg/L Sodium 135 L (136-145) mEq/L Potassium 4.7 (3.5-5.1) mEq/L Chloride 103 (98-107) mEq/L Carbon Dioxide 21 (21-32) mEq/L Anion Gap 15.7 H (5-15) BUN 24 H (7-18) mg/dL Creatinine 1.4 H (0.7-1.3) mg/dL Est Cr Clr Drug Dosing 39.60 mL/min Estimated GFR (MDRD) 48 (>60) mL/min BUN/Creatinine Ratio 17.1 (14-18) Glucose 135 H (70-99) mg/dL Calcium 7.9 L (8.5-10.1) mg/dL Magnesium (1.8-2.4) mg/dL Ferritin (26-388) ng/ml Total Bilirubin 0.6 (0.2-1.0) mg/dL AST 22 (15-37) U/L ALT 25 (16-63) U/L Alkaline Phosphatase 89 (46-116) U/L Lactate Dehydrogenase (85-227) U/L Troponin I 0.061 H* (0.00-0.056) ng/mL C-Reactive Protein (<1.0) mg/dL NT-Pro-B Natriuret Pep (0-450) pg/mL Total Protein 5.9 L (6.4-8.2) g/dl Albumin 2.5 L (3.4-5.0) g/dl Globulin 3.4 gm/dL Albumin/Globulin Ratio 0.7 L (1-2) Urine Color (Yellow) Urine Appearance (Clear) Urine pH (5.0-8.0) Ur Specific Carbon (1.005-1.030) Urine Protein (Negative) Urine Glucose (UA) (Negative) Urine Ketones (Negative) Urine Occult Blood (Negative) Urine Nitrite (Negative) Urine Bilirubin (Negative) Urine Urobilinogen (0.2-1.0) Ur Leukocyte Esterase (Negative) Urine RBC (0-5) /hpf Urine WBC (0-5) /hpf Ur Squamous Epith Cells (0-5) /hpf Urine Bacteria (FEW) /hpf Urine Mucus (FEW) /hpf Influenza Type A RNA (NEGATIVE) Influenza Type B RNA (NEGATIVE) SARS-CoV-2 RNA (TIM) (NEGATIVE) MRSA (PCR) Result Diagrams: 06/21/21 05:40 06/21/21 05:40 Imaging Impressions Last 24 hrs: CT PE negative for PE, right pleural effusion; right lung nodule 4.2 cm mass Sepsis Event Note - Evaluation Sepsis Screening Result: No Definite Risk - Focused Exam Vital Signs: Vital Signs Temp Pulse Resp BP Pulse Ox Pulse Ox 06/21/21 06:45 100 06/21/21 03:55 98.2 F 06/21/21 03:54 67 16 110/76 99 06/20/21 23:34 70 93/78 100 06/20/21 23:33 70 93/78 06/20/21 21:50 98.2 F 71 16 98/54 L 100 *Q Meaningful Use (ADM) - VTE *Q VTE Criteria *Q: 1 Problem List Initiated/Reviewed/Updated: Yes Orders Last 24hrs: Active Orders 24 hr Category Date Time Status Patient Status [ADT] Routine ADT 06/20/21 21:00 Active Activity as Tolerated [RC] BID Care 06/20/21 22:47 Active Oxygen Therapy [RC] PRN Care 06/21/21 07:51 Active RT Aerosol Therapy [RC] ASDIRECTED Care 06/20/21 22:54 Active Supplemental O2 [Oxygen Therapy] [RC] ASDIRECTED Care 06/20/21 22:55 Active Up With Assistance [RC] ASDIRECTED Care 06/21/21 07:51 Active VTE/DVT Education [RC] PER UNIT ROUTINE Care 06/21/21 07:51 Active Vital Signs [RC] Q4HR Care 06/21/21 07:51 Active Consult to Case Management/Machine Puller And Laster [CONS] Cons 06/21/21 07:51 Active Routine Consult to Construction Project Administrator [CONS] Routine Cons 06/21/21 07:51 Active OT Evaluation and Treatment [CONS] Routine Cons 06/21/21 07:51 Active PT Evaluation and Treatment [CONS] Routine Cons 06/21/21 07:51 Active HIGH VOLTAGE ELECTRICIAN Evaluation and Treatment [CONS] Routine Cons 06/21/21 07:51 Active Renal Non-Dialysis Diet [DIET] Diet 06/21/21 Breakfast Active BASIC METABOLIC PANEL,BMP [CHEM] AM Lab 06/22/21 05:11 Ordered BLOOD CULTURE [MREF] Stat Lab 06/20/21 21:25 Received BLOOD CULTURE [MREF] Stat Lab 06/20/21 21:30 Received CBC WITH AUTO DIFF [HEME] AM Lab 06/22/21 05:11 Ordered PROCALCITONIN [REF] Stat Lab 06/20/21 16:33 Received Acetaminophen [TylenoL] Med 06/21/21 09:00 Active 650 mg PO BID Albuterol/Ipratropium [DuoNeb 3.0-0.5 MG/3 ML] Med 06/21/21 06:45 Active 3 ml NEB QIDRT Azithromycin [Zithromax] Med 06/21/21 20:00 Active 500 mg PO DAILY Benzonatate [Tessalon Perles] Med 06/20/21 22:56 Active 100 mg PO BID PRN Calcium Carbonate/Vitamin D3 [Calcium Carbonate/Vitamin Med 06/21/21 09:00 Active D 600 MG-200 Unit] 1 tab PO BID Carboxymethylcellulose Sodium [Refresh Liquigel 1%] Med 06/21/21 09:00 Active 0 ml EYEBOTH QID Cefdinir [Omnicef] Med 06/21/21 09:00 Active 300 mg PO BID Cyanocobalamin (Vitamin B12) [Vitamin B12] Med 06/21/21 09:00 Active 1,000 mcg PO DAILY Fluticasone Propionate [Flonase] Med 06/21/21 09:00 Pending DOSE gm NASBOTH DAILY Furosemide [Lasix] Med 06/21/21 09:00 Active 40 mg PO BID Heparin Sodium Med 06/21/21 08:00 Active 5,000 units SUBCUT Q8H Labetalol [Normodyne] Med 06/21/21 09:00 Active 100 mg PO BID Levothyroxine Med 06/21/21 09:00 Active 125 mcg PO DAILY Mirtazapine [Remeron] Med 06/21/21 21:00 Active 15 mg PO BEDTIME Ondansetron [Zofran] Med 06/21/21 07:51 Active 4 mg IV Q4H PRN Spironolactone [Aldactone] Med 06/21/21 09:00 Active 25 mg PO DAILY Tiotropium [place] [Spiriva Respimat] Med 06/21/21 09:00 Ordered DOSE gm INH DAILY predniSONE Med 06/21/21 08:00 Active 40 mg PO WITHBREAKFAST traZODone Med 06/21/21 21:00 Active 0 mg PO BEDTIME Blood Culture x2 Reflex Set [OM.PC] Stat Oth 06/20/21 21:04 Ordered Peripheral IV Insertion Adult [OM.PC] Routine Oth 06/20/21 18:11 Ordered Resuscitation Status Routine Resus Stat 06/20/21 22:31 Ordered Medication Orders Acetaminophen (Acetaminophen 325 Mg Tab) 650 mg PO BID [facility] Albuterol/Ipratropium (Albuterol/Ipratropium 3.0-0.5 Mg/3 Ml Neb Soln) 3 ml NEB QIDRT BLAYNE Last Admin: 06/21/21 06:44 Dose: 3 ml Documented by: SEPIDEH Artificial Tears (Carboxymethylcellulose Sodium 1% Ophth Gel 15 Ml Bottle) 0 ml EYEBOTH QID [facility] Azithromycin (Azithromycin 250 Mg Tab) 500 mg PO DAILY [facility] Benzonatate (Benzonatate 100 Mg Cap) 100 mg PO BID PRN PRN Reason: Cough Calcium Carbonate (Calcium Carbonate/Vitamin D3 600 Mg-200 Units Tab) 1 tab PO BID [facility] Cefdinir (Cefdinir 300 Mg Cap) 300 mg PO BID [facility] Cyanocobalamin (Cyanocobalamin (Vitamin B12) 1,000 Mcg Tab) 1,000 mcg PO DAILY [facility] Fluticasone Propionate (Fluticasone Propionate [employer] 16 Gm Bottle) gm NASBOTH DAILY [facility] Furosemide (Furosemide 40 Mg Tab) 40 mg PO BID [facility] Heparin Sodium (Porcine) (Heparin Sodium 5,000 Units/Ml Vial) 5,000 units SUBCUT Q8H [facility] Labetalol HCl (Labetalol 100 Mg Tab) 100 mg PO BID [facility] Levothyroxine Sodium (Levothyroxine 125 Mcg Tab) 125 mcg PO DAILY [facility] Mirtazapine (Mirtazapine 15 Mg Tab) 15 mg PO BEDTIME [facility] Trazodone 150 Mg (Tablet - Pt Own Med) 0 mg PO BEDTIME [facility] Ondansetron HCl (Ondansetron 4 Mg/2 Ml Sdv) 4 mg IV Q4H PRN PRN Reason: Nausea/Vomiting Prednisone (Prednisone 20 Mg Tab) 40 mg PO WITHBREAKFAST [facility] Spironolactone (Spironolactone 25 Mg Tab) 25 mg PO DAILY [facility] Tiotropium [place] (Tiotropium [place] 4 Gm Inhalation [employer] (2.5mcg/1 Dose; 10 Doses)) gm INH DAILY [facility] Assessment/Plan Comment:: This is a 81M presenting for evaluation of sob, cough and hypoxia. In the ED he was hypoxic and requiring supplemental oxygen. CXR showed no clear infiltrate. CT PE negative for PE, right pleural effusion; right lung 4.2 cm mass. He was noted to have elevated WBC. In the ED he was started on prednisone, antibiotics, duonebs and admitted for further evaluation. Per daughter he has had progressive decline over the last few months. 1. suspected PNA vs COPD exacerbation 2. Right pleural effusion 3. Right lung mass 4.2 cm 4. Hyperkalemia 5. Chronic kidney disease 6. Suspected adult failure to thrive 7. Hx of HTN 8. Hx of hypothyroidism 9. Hyponatremia 10. Mildly elevated troponin in context of CKD; denied chest pain Plan -continue antibiotics/steroids/nebs -PT, OT, [employer] consult -SW consult; -check EKG -continue synthroid -hold antihypertensives for now code-DNR/DNi DVT ppx-heparin subq
[2021-06-21] MEDS: Cefdinir 300 MG Cap PO SCH ×2 (08:55→20:46)
[2021-06-21] MEDS: predniSONE 20 MG Tab PO SCH (08:56)
[2021-06-21] MEDS: Heparin Sodium 5,000 Units/ML Vial SUBCUT SCH ×3 (08:57→23:37)
[2021-06-21] MEDS: Carboxymethylcellulose Sodium 1% Ophth Gel 15 ML Bottle EYEBOTH SCH ×4 (08:57→21:21)
[2021-06-21] MEDS: Calcium Carbonate/Vitamin D3 600 MG-200 Units Tab PO SCH ×2 (08:57→20:46)
[2021-06-21] MEDS: Cyanocobalamin (Vitamin B12) 1,000 MCG Tab PO SCH (08:58)
[2021-06-21] MEDS: Acetaminophen 325 MG Tab PO SCH ×2 (08:58→20:46)
[2021-06-21] MEDS ORDERED: Albuterol/Ipratropium 3.0-0.5 MG/3 ML Neb Soln NEB SCH (09:00)
[2021-06-21] MEDS ORDERED: Labetalol 100 MG Tab PO SCH ×2 (09:00→21:00)
[2021-06-21] MEDS ORDERED: Spironolactone 25 MG Tab PO SCH (09:00)
[2021-06-21] MEDS ORDERED: Levothyroxine 125 MCG Tab PO SCH (09:00)
[2021-06-21] MEDS ORDERED: Furosemide 40 MG Tab PO SCH (09:00)
[2021-06-21] MEDS: Lactated Ringers 250 ML IV SCH ×2 (12:40→13:51)
[2021-06-21] MEDS ORDERED: Lactated Ringers 250 ML IV SCH (17:15)
[2021-06-21] MEDS ORDERED: Lactated Ringers 500 ML IV ONE (20:00)
[2021-06-21] MEDS ORDERED: Azithromycin 250 MG Tab PO SCH (20:00)
[2021-06-21] MEDS ORDERED: Piperacillin/Tazobactam 4.5 GM in Sodium Chloride 0.9% 100 ML IV ONE (20:30)
[2021-06-21] MEDS ORDERED: Mirtazapine 15 MG Tab PO SCH (21:00)
[2021-06-21] MEDS ORDERED: TRAZODONE 150 MG PO SCH (21:00)
[2021-06-22] MEDS: Piperacillin/Tazobactam 4.5 GM in Sodium Chloride 0.9% 100 ML IV SCH ×3 (04:04→20:55)
[2021-06-22] MEDS: Albuterol/Ipratropium 3.0-0.5 MG/3 ML Neb Soln NEB SCH ×4 (05:48→20:03)
[2021-06-22] MEDS: predniSONE 20 MG Tab PO SCH (06:23)
[2021-06-22] MEDS ORDERED: traZODone 50 MG Tab PO SCH (07:07)
[2021-06-22] MEDS: Tiotropium Bromide 4 GM Inhalation Spray (2.5mcg/1 dose; 10 doses) INH SCH (09:09)
[2021-06-22] MEDS: Calcium Carbonate/Vitamin D3 600 MG-200 Units Tab PO SCH ×2 (09:17→20:33)
[2021-06-22] MEDS: Acetaminophen 325 MG Tab PO SCH ×2 (09:17→20:31)
[2021-06-22] MEDS: Cyanocobalamin (Vitamin B12) 1,000 MCG Tab PO SCH (09:17)
[2021-06-22] MEDS: Carboxymethylcellulose Sodium 1% Ophth Gel 15 ML Bottle EYEBOTH SCH ×5 (09:18→20:40)
[2021-06-22] MEDS: Fluticasone Propionate Nasal Spray 16 GM Bottle NASBOTH SCH (09:18)
[2021-06-22] MEDS: Heparin Sodium 5,000 Units/ML Vial SUBCUT SCH ×2 (09:18→16:30)
--- NOTE | 2021-06-22 10:00 | PCM.SN.2 ---
- Free Text/Narrative Note: EKG 06/21 NO STEMI Accelerated Junctional Rhythm; Rate 77 MMw140 absent P waves low voltage
--- NOTE | 2021-06-22 12:32 | CR ---
Chest: 2 views of the chest were obtained. Comparison: Prior chest CT study of 06/20/21 as well as chest x-ray also performed on 06/20/21. Pleural thickening along the right chest is seen as well as thickening of the right lateral costophrenic angle. Pleural thickening is noted along the left lateral chest compatible with change from previous rib fractures. Heart size is slightly enlarged. Upper mediastinum is normal. Degenerative change is noted within both shoulders. Degenerative change is also scattered within the spine. Compression deformity is noted within the lower thoracic spine which is stable from prior chest CT. Impression: 1. Multiple findings as described above. 2. No significant change is seen from prior chest x-ray. Diagnostic code #3
--- NOTE | 2021-06-22 14:39 | PCM.PN ---
- General Info Date of Service: 06/22/21 Admission Dx/Problem (Free Text): Admission Diagnosis/Problem Admission Diagnosis/Problem Chronic obstructive pulmonary disease Subjective Update: Patient extremely hard of hearing unable to provide hx daughter at bedside patient having insomnia concern's for aspiration; per daughter sometimes he has difficulty swallowing - Patient Data Vitals - Most Recent: Last Vital Signs Temp 97.3 F 06/22/21 11:09 Pulse 69 06/22/21 11:09 Resp 18 06/22/21 11:09 BP 108/65 06/22/21 11:09 Pulse Ox 97 06/22/21 11:09 Weight - Most Recent: 158 lb I&O - Last 24 Hours: Intake & Output 06/21/21 06/22/21 06/22/21 22:59 06:59 14:59 Intake Total 1725 1100 Output Total 200 550 Balance 1525 550 Lab Results Last 24 Hours: Laboratory Results - last 24 hr 06/20/21 06/21/21 06/21/21 Range/Units 16:33 18:48 22:30 WBC (4.23-9.07) K/mm3 RBC (4.63-6.08) M/mm3 Hgb (13.7-17.5) gm/dl Hct (40.1-51.0) % MCV (79.0-92.2) fl MCH (25.7-32.2) pg MCHC (32.2-35.5) g/dl RDW Std Deviation (35.1-43.9) fL Plt Count (163-337) K/mm3 MPV (9.4-12.3) fl Neut % (Auto) (34.0-67.9) % Lymph % (Auto) (21.8-53.1) % [place] % (Auto) (5.3-12.2) % Eos % (Auto) (0.8-7.0) Baso % (Auto) (0.1-1.2) % Neut # (Auto) (1.78-5.38) K/mm3 Lymph # (Auto) (1.32-3.57) K/mm3 [place] # (Auto) (0.30-0.82) K/mm3 Eos # (Auto) (0.04-0.54) K/mm3 Baso # (Auto) (0.01-0.08) K/mm3 Manual Slide Review Sodium (136-145) mEq/L Potassium (3.5-5.1) mEq/L Chloride (98-107) mEq/L Carbon Dioxide (21-32) mEq/L Anion Gap (5-15) BUN (7-18) mg/dL Creatinine (0.7-1.3) mg/dL Est Cr Clr Drug Dosing mL/min Estimated GFR (MDRD) (>60) mL/min BUN/Creatinine Ratio (14-18) Glucose (70-99) mg/dL Lactic Acid 2.8 H* 1.9 (0.4-2.0) mmol/L Calcium (8.5-10.1) mg/dL Procalcitonin 0.11 H ng/mL 06/22/21 06/22/21 Range/Units 05:20 05:20 WBC 7.05 (4.23-9.07) K/mm3 RBC 3.70 L (4.63-6.08) M/mm3 Hgb 12.0 L (13.7-17.5) gm/dl Hct 35.1 L (40.1-51.0) % MCV 94.9 H (79.0-92.2) fl MCH 32.4 H (25.7-32.2) pg MCHC 34.2 (32.2-35.5) g/dl RDW Std Deviation 47.7 H (35.1-43.9) fL Plt Count 150 L (163-337) K/mm3 MPV 9.6 (9.4-12.3) fl Neut % (Auto) 85.2 H (34.0-67.9) % Lymph % (Auto) 8.4 L (21.8-53.1) % [place] % (Auto) 6.2 (5.3-12.2) % Eos % (Auto) 0 L (0.8-7.0) Baso % (Auto) 0.1 (0.1-1.2) % Neut # (Auto) 6.00 H (1.78-5.38) K/mm3 Lymph # (Auto) 0.59 L (1.32-3.57) K/mm3 [place] # (Auto) 0.44 (0.30-0.82) K/mm3 Eos # (Auto) 0.00 L (0.04-0.54) K/mm3 Baso # (Auto) 0.01 (0.01-0.08) K/mm3 Manual Slide Review Abnormal smear Sodium 138 (136-145) mEq/L Potassium 4.8 (3.5-5.1) mEq/L Chloride 104 (98-107) mEq/L Carbon Dioxide 22 (21-32) mEq/L Anion Gap 16.8 H (5-15) BUN 22 H (7-18) mg/dL Creatinine 1.4 H (0.7-1.3) mg/dL Est Cr Clr Drug Dosing 40.53 mL/min Estimated GFR (MDRD) 48 (>60) mL/min BUN/Creatinine Ratio 15.7 (14-18) Glucose 97 (70-99) mg/dL Lactic Acid (0.4-2.0) mmol/L Calcium 8.0 L (8.5-10.1) mg/dL Procalcitonin ng/mL Will Results Last 24 Hours: Microbiology 06/20/21 21:25 Blood Culture - Preliminary Blood 06/20/21 21:30 Blood Culture - Preliminary Blood Med Orders - Current: Current Medications Acetaminophen (Acetaminophen 325 Mg Tab) 650 mg PO BID [facility] Last Admin: 06/22/21 09:17 Dose: 650 mg Documented by: Albuterol/Ipratropium (Albuterol/Ipratropium 3.0-0.5 Mg/3 Ml Neb Soln) 3 ml NEB QIDRT [facility] Last Admin: 06/22/21 09:09 Dose: 3 ml Documented by: Artificial Tears (Carboxymethylcellulose Sodium 1% Ophth Gel 15 Ml Bottle) 0 ml EYEBOTH QID [facility] Last Admin: 06/22/21 12:39 Dose: Not Given Documented by: Benzonatate (Benzonatate 100 Mg Cap) 100 mg PO BID PRN PRN Reason: Cough Calcium Carbonate (Calcium Carbonate/Vitamin D3 600 Mg-200 Units Tab) 1 tab PO BID [facility] Last Admin: 06/22/21 09:17 Dose: 1 tab Documented by: Cyanocobalamin (Cyanocobalamin (Vitamin B12) 1,000 Mcg Tab) 1,000 mcg PO DAILY [facility] Last Admin: 06/22/21 09:17 Dose: 1,000 mcg Documented by: Fluticasone Propionate (Fluticasone Propionate Nasal [place] 16 Gm Bottle) 0 gm NASBOTH DAILY [facility] Last Admin: 06/22/21 09:18 Dose: 2 spray Documented by: Heparin Sodium (Porcine) (Heparin Sodium 5,000 Units/Ml Vial) 5,000 units SUBCUT Q8H [facility] Last Admin: 06/22/21 09:18 Dose: 5,000 units Documented by: Piperacillin Sod/Tazobactam (Sod 4.5 gm/ Sodium Chloride) 100 mls @ 25 mls/hr IV Q8H [facility] Last Admin: 06/22/21 11:22 Dose: 25 mls/hr Documented by: Vancomycin HCl 1 gm/ Sodium (Chloride) 250 mls @ 250 mls/hr IV Q24H [facility] Last Admin: 06/21/21 21:15 Dose: 250 mls/hr Documented by: Levothyroxine Sodium (Levothyroxine 125 Mcg Tab) 125 mcg PO DAILY@0700 [facility] Melatonin (Melatonin 3 Mg Tab) 6 mg PO BEDTIME PRN PRN Reason: Sleep Mirtazapine (Mirtazapine 15 Mg Tab) 15 mg PO BEDTIME [facility] Ondansetron HCl (Ondansetron 4 Mg/2 Ml Sdv) 4 mg IV Q4H PRN PRN Reason: Nausea/Vomiting Prednisone (Prednisone 20 Mg Tab) 40 mg PO WITHBREAKFAST [facility] Last Admin: 06/22/21 06:23 Dose: 40 mg Documented by: Tiotropium [place] (Tiotropium [place] 4 Gm Inhalation [place] (2.5mcg/1 Dose; 10 Doses)) 0 gm INH DAILY [facility] Last Admin: 06/22/21 09:09 Dose: 2 inhalation Documented by: Trazodone HCl (Trazodone 50 Mg Tab) 225 mg PO BEDTIME [facility] Vancomycin HCl (Pharmacy To Dose - Vancomycin) 1 dose .XX ASDIRECTED [facility] Discontinued Medications Albuterol/Ipratropium (Albuterol/Ipratropium 3.0-0.5 Mg/3 Ml Neb Soln) 3 ml NEB QID [facility] Aspirin (Aspirin 81 Mg Tab.Chew) 324 mg PO ONETIME ONE Stop: 06/20/21 20:29 Last Admin: 06/20/21 21:24 Dose: 324 mg Documented by: Azithromycin (Azithromycin 250 Mg Tab) 500 mg PO ONETIME ONE Stop: 06/20/21 20:27 Last Admin: 06/20/21 21:25 Dose: 500 mg Documented by: Azithromycin (Azithromycin 250 Mg Tab) 500 mg PO DAILY [facility] Last Admin: 06/21/21 20:44 Dose: 500 mg Documented by: Cefdinir (Cefdinir 300 Mg Cap) 300 mg PO ONETIME ONE Stop: 06/20/21 20:24 Last Admin: 06/20/21 21:25 Dose: 300 mg Documented by: Cefdinir (Cefdinir 300 Mg Cap) 300 mg PO BID [facility] Last Admin: 06/21/21 20:46 Dose: 300 mg Documented by: Furosemide (Furosemide 40 Mg/4 Ml Vial) 40 mg IVPUSH NOW ONE Stop: 06/20/21 20:24 Last Admin: 06/20/21 21:37 Dose: 40 mg Documented by: Furosemide (Furosemide 40 Mg Tab) 40 mg PO BID [facility] Last Admin: 06/21/21 08:57 Dose: 40 mg Documented by: Sodium Chloride (Normal Saline) 1,000 mls @ 500 mls/hr IV ONETIME ONE Stop: 06/20/21 20:28 Last Infusion: 06/20/21 19:00 Dose: 100 mls/hr Documented by: Sodium Chloride (Normal Saline) 45 mls @ 40 mls/hr IV ASDIRECTED [facility] Last Admin: 06/20/21 19:42 Dose: 40 mls/hr Documented by: Sodium Chloride (Normal Saline) 1,000 mls @ 75 mls/hr IV ASDIRECTED [facility] Last Admin: 06/21/21 02:37 Dose: 75 mls/hr Documented by: Lactated Ringer's (Ringers, Lactated) 250 mls @ 250 mls/hr IV ASDIRECTED [facility] Last Admin: 06/21/21 13:51 Dose: 250 mls/hr Documented by: Lactated Ringer's (Ringers, Lactated) 250 mls @ 125 mls/hr IV ASDIRECTED [facility] Last Admin: 06/21/21 17:30 Dose: 125 mls/hr Documented by: Lactated Ringer's (Ringers, Lactated) 500 mls @ 250 mls/hr IV BOLUS ONE Stop: 06/21/21 21:59 Last Admin: 06/21/21 21:14 Dose: 250 mls/hr Documented by: Piperacillin Sod/Tazobactam (Sod 4.5 gm/ Sodium Chloride) 100 mls @ 200 mls/hr IV ONETIME ONE Stop: 06/21/21 20:59 Last Admin: 06/21/21 20:41 Dose: 200 mls/hr Documented by: Iopamidol (Iopamidol 755 Mg/Ml 100 Ml Bottle) 100 ml IVPUSH ONETIME ONE Stop: 06/20/21 18:43 Last Admin: 06/20/21 19:42 Dose: 100 ml Documented by: Labetalol HCl (Labetalol 100 Mg Tab) 100 mg PO ONETIME ONE Stop: 06/20/21 20:29 Last Admin: 06/20/21 23:32 Dose: Not Given Documented by: Labetalol HCl (Labetalol 100 Mg TabPt Own) 100 mg PO ONETIME ONE Stop: 06/20/21 23:31 Last Admin: 06/20/21 23:33 Dose: 100 mg Documented by: Labetalol HCl (Labetalol 100 Mg Tab) 100 mg PO BID [facility] Last Admin: 06/21/21 08:56 Dose: 100 mg Documented by: Labetalol HCl (Labetalol 100 Mg Tab) 100 mg PO BID [facility] Levothyroxine Sodium (Levothyroxine 125 Mcg Tab) 125 mcg PO DAILY [facility] Last Admin: 06/21/21 08:58 Dose: 125 mcg Documented by: Mirtazapine (Mirtazapine 15 Mg Tab) 15 mg PO BEDTIME [facility] Last Admin: 06/21/21 21:23 Dose: 15 mg Documented by: Trazodone 150 Mg (Tablet - Pt Own Med) 0 mg PO BEDTIME [facility] Last Admin: 06/21/21 21:25 Dose: 225 mg Documented by: Prednisone (Prednisone 20 Mg Tab) 60 mg PO ONETIME ONE Stop: 06/20/21 20:24 Last Admin: 06/20/21 21:31 Dose: 60 mg Documented by: Prednisone (Prednisone 20 Mg Tab) Confirm Administered Dose 20 mg .ROUTE .STK- MED ONE Stop: 06/20/21 21:29 Last Admin: 06/20/21 23:00 Dose: Not Given Documented by: Sodium Chloride (Sodium Chloride 0.9% 10 Ml Syringe) 10 ml FLUSH ASDIRECTED PRN PRN Reason: Keep Vein Open Sodium Chloride (Sodium Chloride 0.9% 10 Ml Syringe) 10 ml FLUSH ONETIME PRN PRN Reason: Keep Vein Open Last Admin: 06/20/21 19:42 Dose: 10 ml Documented by: Spironolactone (Spironolactone 25 Mg Tab) 25 mg PO DAILY [facility] Last Admin: 06/21/21 08:57 Dose: 25 mg Documented by: - Exam HEENT: EOMI, Mucous Membr. Moist/[place] Neck: Supple Lungs: Clear to Auscultation, Normal Respiratory Effort Cardiovascular: Regular Rate, Regular Rhythm GI/Abdominal Exam: Soft, Non-Tender, No Distention Skin: Warm, Dry, Intact Neurological: No New Focal Deficit Psy/Mental Status: Normal Affect - Patient Data Lab Results Last 24 hrs: Laboratory Results - last 24 hr 06/20/21 06/21/21 06/21/21 Range/Units 16:33 18:48 22:30 WBC (4.23-9.07) K/mm3 RBC (4.63-6.08) M/mm3 Hgb (13.7-17.5) gm/dl Hct (40.1-51.0) % MCV (79.0-92.2) fl MCH (25.7-32.2) pg MCHC (32.2-35.5) g/dl RDW Std Deviation (35.1-43.9) fL Plt Count (163-337) K/mm3 MPV (9.4-12.3) fl Neut % (Auto) (34.0-67.9) % Lymph % (Auto) (21.8-53.1) % [place] % (Auto) (5.3-12.2) % Eos % (Auto) (0.8-7.0) Baso % (Auto) (0.1-1.2) % Neut # (Auto) (1.78-5.38) K/mm3 Lymph # (Auto) (1.32-3.57) K/mm3 [place] # (Auto) (0.30-0.82) K/mm3 Eos # (Auto) (0.04-0.54) K/mm3 Baso # (Auto) (0.01-0.08) K/mm3 Manual Slide Review Sodium (136-145) mEq/L Potassium (3.5-5.1) mEq/L Chloride (98-107) mEq/L Carbon Dioxide (21-32) mEq/L Anion Gap (5-15) BUN (7-18) mg/dL Creatinine (0.7-1.3) mg/dL Est Cr Clr Drug Dosing mL/min Estimated GFR (MDRD) (>60) mL/min BUN/Creatinine Ratio (14-18) Glucose (70-99) mg/dL Lactic Acid 2.8 H* 1.9 (0.4-2.0) mmol/L Calcium (8.5-10.1) mg/dL Procalcitonin 0.11 H ng/mL 06/22/21 06/22/21 Range/Units 05:20 05:20 WBC 7.05 (4.23-9.07) K/mm3 RBC 3.70 L (4.63-6.08) M/mm3 Hgb 12.0 L (13.7-17.5) gm/dl Hct 35.1 L (40.1-51.0) % MCV 94.9 H (79.0-92.2) fl MCH 32.4 H (25.7-32.2) pg MCHC 34.2 (32.2-35.5) g/dl RDW Std Deviation 47.7 H (35.1-43.9) fL Plt Count 150 L (163-337) K/mm3 MPV 9.6 (9.4-12.3) fl Neut % (Auto) 85.2 H (34.0-67.9) % Lymph % (Auto) 8.4 L (21.8-53.1) % [place] % (Auto) 6.2 (5.3-12.2) % Eos % (Auto) 0 L (0.8-7.0) Baso % (Auto) 0.1 (0.1-1.2) % Neut # (Auto) 6.00 H (1.78-5.38) K/mm3 Lymph # (Auto) 0.59 L (1.32-3.57) K/mm3 [place] # (Auto) 0.44 (0.30-0.82) K/mm3 Eos # (Auto) 0.00 L (0.04-0.54) K/mm3 Baso # (Auto) 0.01 (0.01-0.08) K/mm3 Manual Slide Review Abnormal smear Sodium 138 (136-145) mEq/L Potassium 4.8 (3.5-5.1) mEq/L Chloride 104 (98-107) mEq/L Carbon Dioxide 22 (21-32) mEq/L Anion Gap 16.8 H (5-15) BUN 22 H (7-18) mg/dL Creatinine 1.4 H (0.7-1.3) mg/dL Est Cr Clr Drug Dosing 40.53 mL/min Estimated GFR (MDRD) 48 (>60) mL/min BUN/Creatinine Ratio 15.7 (14-18) Glucose 97 (70-99) mg/dL Lactic Acid (0.4-2.0) mmol/L Calcium 8.0 L (8.5-10.1) mg/dL Procalcitonin ng/mL Result Diagrams: 06/22/21 05:20 06/22/21 05:20 Will Results Last 24 hrs: Microbiology 06/20/21 21:25 Blood Culture - Preliminary Blood 06/20/21 21:30 Blood Culture - Preliminary Blood Imaging Impressions Last 24 hrs: CXR no infiltrate noted; chronic pleural thickening Sepsis Event Note - Evaluation Sepsis Screening Result: No Definite Risk - Focused Exam Vital Signs: Vital Signs Temp Pulse Resp BP Pulse Ox Pulse Ox 06/22/21 11:09 97.3 F 69 18 108/65 97 06/22/21 09:12 100 06/22/21 07:48 97.3 F 61 16 130/84 99 06/22/21 05:49 99 06/22/21 03:41 97.0 F 69 16 108/57 L 100 - Problem List Review Problem List Initiated/Reviewed/Updated: Yes - My Orders Last 24 Hours: My Active Orders 06/21/21 14:59 Patient Status [ADT] Routine 06/21/21 15:19 EKG 12 Lead [EK] Routine 06/21/21 19:54 Blood Culture x2 Reflex Set [OM.PC] Stat 06/21/21 20:00 Pharmacy to Dose - Vancomycin 1 dose .XX ASDIRECTED 06/21/21 20:34 BLOOD CULTURE [MREF] Stat 06/21/21 20:40 BLOOD CULTURE [MREF] Stat 06/21/21 21:00 Vancomycin [Vancocin] 1 gm Sodium Chloride 0.9% [Normal Saline (AdvBag)] 250 ml IV Q24H 06/22/21 04:00 Piperacillin/Tazobactam [Piperacil-Tazobact] 4.5 gm Sodium Chloride 0.9% [Normal Saline] 100 ml IV Q8H 06/22/21 07:07 traZODone 225 mg PO BEDTIME 06/22/21 07:08 Mirtazapine [Remeron] 15 mg PO BEDTIME 06/22/21 08:06 Melatonin 6 mg PO BEDTIME PRN 06/22/21 09:00 Fluticasone Propionate [Flonase] 0 gm NASBOTH DAILY Tiotropium [place] [Spiriva Respimat] 0 gm INH DAILY 06/22/21 Dinner [employer] Dysphagia Diet [DIET] 06/23/21 07:00 Levothyroxine 125 mcg PO DAILY@0700 06/23/21 08:00 Swallowing Function w Video [CR] Routine 06/24/21 20:30 VANCOMYCIN TROUGH [CHEM] Timed - Plan Plan:: This is a 81M presenting for evaluation of sob, cough and hypoxia. In the ED he was hypoxic and requiring supplemental oxygen. CXR showed no clear infiltrate. CT PE negative for PE, right pleural effusion; right lung 4.2 cm mass. He was noted to have elevated WBC. In the ED he was started on prednisone, antibiotics, duonebs and admitted for further evaluation. Per daughter he has had progressive decline over the last few months. Pt antibiotics broadened on 06/21 due to lactic acidosis and hypotension 1. suspected PNA vs COPD exacerbation -->procal 0.11 -changed to vanco+zosyn on 06/21 -dc zosyn 2. Right pleural effusion 3. Right lung mass 4.2 cm 4. Hyperkalemia 5. Chronic kidney disease 6. Suspected adult failure to thrive 7. Hx of HTN 8. Hx of hypothyroidism 9. Hyponatremia 10. Mildly elevated troponin in context of CKD; denied chest pain 11. lactic acidosis; resolved 12. Concern for aspiration 13. Hx of insomnia Plan -continue antibiotics/steroids/nebs -PT, OT, RESOURCE ENGINEER consult -SW consult; -continue synthroid -hold antihypertensives for now -discontinue vancomycin 06/22; continue zosyn -recheck procal in AM -video swallow evaluation code-DNR/DNi DVT ppx-heparin subq Dispo-suspect will be here till Sunday?
[2021-06-22] MEDS: Melatonin 3 MG Tab PO PRN (20:33)
[2021-06-22] MEDS: Mirtazapine 15 MG Tab PO SCH (20:33)
[2021-06-23] MEDS: Heparin Sodium 5,000 Units/ML Vial SUBCUT SCH ×3 (01:32→16:38)
[2021-06-23] MEDS: Albuterol/Ipratropium 3.0-0.5 MG/3 ML Neb Soln NEB SCH ×4 (05:54→20:10)
[2021-06-23] MEDS: Levothyroxine 125 MCG Tab PO SCH (06:17)
[2021-06-23] MEDS: predniSONE 20 MG Tab PO SCH (06:18)
[2021-06-23] MEDS: Tiotropium Bromide 4 GM Inhalation Spray (2.5mcg/1 dose; 10 doses) INH SCH (09:05)
--- NOTE | 2021-06-23 09:32 | PCM.PN ---
- General Info Date of Service: 06/23/21 Admission Dx/Problem (Free Text): Admission Diagnosis/Problem Admission Diagnosis/Problem Chronic obstructive pulmonary disease Subjective Update: Patient delirious last night pulled out IV refused medications was agitated didnt sleep much continues to be sleeping this morning; unable to provide ROS off supplemental oxygen - Patient Data Vitals - Most Recent: Last Vital Signs Temp 97.2 F 06/23/21 04:16 Pulse 76 06/23/21 04:16 Resp 16 06/23/21 04:16 BP 99/62 06/23/21 04:16 Pulse Ox 100 06/23/21 09:05 Weight - Most Recent: 158 lb 4.8 oz I&O - Last 24 Hours: Intake & Output 06/22/21 06/23/21 06/23/21 22:59 06:59 14:59 Intake Total 590 300 480 Output Total 600 600 Balance -10 -300 480 Lab Results Last 24 Hours: Laboratory Results - last 24 hr 06/23/21 06/23/21 Range/Units 06:17 06:17 WBC 5.04 (4.23-9.07) K/mm3 RBC 3.52 L (4.63-6.08) M/mm3 Hgb 11.2 L (13.7-17.5) gm/dl Hct 33.7 L (40.1-51.0) % MCV 95.7 H (79.0-92.2) fl MCH 31.8 (25.7-32.2) pg MCHC 33.2 (32.2-35.5) g/dl RDW Std Deviation 48.5 H (35.1-43.9) fL Plt Count 152 L (163-337) K/mm3 MPV 9.1 L (9.4-12.3) fl Sodium 141 (136-145) mEq/L Potassium 4.4 (3.5-5.1) mEq/L Chloride 109 H (98-107) mEq/L Carbon Dioxide 23 (21-32) mEq/L Anion Gap 13.4 (5-15) BUN 21 H (7-18) mg/dL Creatinine 1.5 H (0.7-1.3) mg/dL Est Cr Clr Drug Dosing 37.90 mL/min Estimated GFR (MDRD) 45 (>60) mL/min BUN/Creatinine Ratio 14.0 (14-18) Glucose 87 (70-99) mg/dL Calcium 8.2 L (8.5-10.1) mg/dL Will Results Last 24 Hours: Microbiology 06/20/21 21:25 Blood Culture - Preliminary Blood 06/20/21 21:30 Blood Culture - Preliminary Blood Med Orders - Current: Current Medications Acetaminophen (Acetaminophen 325 Mg Tab) 650 mg PO BID [facility] Last Admin: 06/22/21 20:31 Dose: 650 mg Documented by: Albuterol/Ipratropium (Albuterol/Ipratropium 3.0-0.5 Mg/3 Ml Neb Soln) 3 ml NEB QIDRT [facility] Last Admin: 06/23/21 09:05 Dose: 3 ml Documented by: Artificial Tears (Carboxymethylcellulose Sodium 1% Ophth Gel 15 Ml Bottle) 0 ml EYEBOTH QID [facility] Last Admin: 06/22/21 20:40 Dose: Not Given Documented by: Benzonatate (Benzonatate 100 Mg Cap) 100 mg PO BID PRN PRN Reason: Cough Calcium Carbonate (Calcium Carbonate/Vitamin D3 600 Mg-200 Units Tab) 1 tab PO BID [facility] Last Admin: 06/22/21 20:33 Dose: 1 tab Documented by: Cyanocobalamin (Cyanocobalamin (Vitamin B12) 1,000 Mcg Tab) 1,000 mcg PO DAILY [facility] Last Admin: 06/22/21 09:17 Dose: 1,000 mcg Documented by: Fluticasone Propionate (Fluticasone Propionate Nasal [place] 16 Gm Bottle) 0 gm NASBOTH DAILY [facility] Last Admin: 06/22/21 09:18 Dose: 2 spray Documented by: Heparin Sodium (Porcine) (Heparin Sodium 5,000 Units/Ml Vial) 5,000 units SUBCUT Q8H [facility] Last Admin: 06/23/21 01:32 Dose: Not Given Documented by: Levothyroxine Sodium (Levothyroxine 125 Mcg Tab) 125 mcg PO DAILY@0700 [facility] Last Admin: 06/23/21 06:17 Dose: 125 mcg Documented by: Melatonin (Melatonin 3 Mg Tab) 6 mg PO BEDTIME PRN PRN Reason: Sleep Last Admin: 06/22/21 20:33 Dose: 6 mg Documented by: Mirtazapine (Mirtazapine 15 Mg Tab) 15 mg PO BEDTIME [facility] Last Admin: 06/22/21 20:33 Dose: 15 mg Documented by: Ondansetron HCl (Ondansetron 4 Mg/2 Ml Sdv) 4 mg IV Q4H PRN PRN Reason: Nausea/Vomiting Quetiapine Fumarate (Quetiapine 25 Mg Tab) 12.5 mg PO BEDTIME [facility] Tiotropium [place] (Tiotropium [place] 4 Gm Inhalation [place] (2.5mcg/1 Dose; 10 Doses)) 0 gm INH DAILY [facility] Last Admin: 06/23/21 09:05 Dose: Not Given Documented by: Discontinued Medications Albuterol/Ipratropium (Albuterol/Ipratropium 3.0-0.5 Mg/3 Ml Neb Soln) 3 ml NEB QID [facility] Aspirin (Aspirin 81 Mg Tab.Chew) 324 mg PO ONETIME ONE Stop: 06/20/21 20:29 Last Admin: 06/20/21 21:24 Dose: 324 mg Documented by: Azithromycin (Azithromycin 250 Mg Tab) 500 mg PO ONETIME ONE Stop: 06/20/21 20:27 Last Admin: 06/20/21 21:25 Dose: 500 mg Documented by: Azithromycin (Azithromycin 250 Mg Tab) 500 mg PO DAILY [facility] Last Admin: 06/21/21 20:44 Dose: 500 mg Documented by: Cefdinir (Cefdinir 300 Mg Cap) 300 mg PO ONETIME ONE Stop: 06/20/21 20:24 Last Admin: 06/20/21 21:25 Dose: 300 mg Documented by: Cefdinir (Cefdinir 300 Mg Cap) 300 mg PO BID [facility] Last Admin: 06/21/21 20:46 Dose: 300 mg Documented by: Furosemide (Furosemide 40 Mg/4 Ml Vial) 40 mg IVPUSH NOW ONE Stop: 06/20/21 20:24 Last Admin: 06/20/21 21:37 Dose: 40 mg Documented by: Furosemide (Furosemide 40 Mg Tab) 40 mg PO BID [facility] Last Admin: 06/21/21 08:57 Dose: 40 mg Documented by: Sodium Chloride (Normal Saline) 1,000 mls @ 500 mls/hr IV ONETIME ONE Stop: 06/20/21 20:28 Last Infusion: 06/20/21 19:00 Dose: 100 mls/hr Documented by: Sodium Chloride (Normal Saline) 45 mls @ 40 mls/hr IV ASDIRECTED [facility] Last Admin: 06/20/21 19:42 Dose: 40 mls/hr Documented by: Sodium Chloride (Normal Saline) 1,000 mls @ 75 mls/hr IV ASDIRECTED [facility] Last Admin: 06/21/21 02:37 Dose: 75 mls/hr Documented by: Lactated Ringer's (Ringers, Lactated) 250 mls @ 250 mls/hr IV ASDIRECTED [facility] Last Admin: 06/21/21 13:51 Dose: 250 mls/hr Documented by: Lactated Ringer's (Ringers, Lactated) 250 mls @ 125 mls/hr IV ASDIRECTED [facility] Last Admin: 06/21/21 17:30 Dose: 125 mls/hr Documented by: Lactated Ringer's (Ringers, Lactated) 500 mls @ 250 mls/hr IV BOLUS ONE Stop: 06/21/21 21:59 Last Admin: 06/21/21 21:14 Dose: 250 mls/hr Documented by: Piperacillin Sod/Tazobactam (Sod 4.5 gm/ Sodium Chloride) 100 mls @ 200 mls/hr IV ONETIME ONE Stop: 06/21/21 20:59 Last Admin: 06/21/21 20:41 Dose: 200 mls/hr Documented by: Piperacillin Sod/Tazobactam (Sod 4.5 gm/ Sodium Chloride) 100 mls @ 25 mls/hr IV Q8H [facility] Last Admin: 06/22/21 20:55 Dose: 25 mls/hr Documented by: Vancomycin HCl 1 gm/ Sodium (Chloride) 250 mls @ 250 mls/hr IV Q24H [facility] Last Admin: 06/21/21 21:15 Dose: 250 mls/hr Documented by: Iopamidol (Iopamidol 755 Mg/Ml 100 Ml Bottle) 100 ml IVPUSH ONETIME ONE Stop: 06/20/21 18:43 Last Admin: 06/20/21 19:42 Dose: 100 ml Documented by: Labetalol HCl (Labetalol 100 Mg Tab) 100 mg PO ONETIME ONE Stop: 06/20/21 20:29 Last Admin: 06/20/21 23:32 Dose: Not Given Documented by: Labetalol HCl (Labetalol 100 Mg TabPt Own) 100 mg PO ONETIME ONE Stop: 06/20/21 23:31 Last Admin: 06/20/21 23:33 Dose: 100 mg Documented by: Labetalol HCl (Labetalol 100 Mg Tab) 100 mg PO BID [facility] Last Admin: 06/21/21 08:56 Dose: 100 mg Documented by: Labetalol HCl (Labetalol 100 Mg Tab) 100 mg PO BID [facility] Levothyroxine Sodium (Levothyroxine 125 Mcg Tab) 125 mcg PO DAILY [facility] Last Admin: 06/21/21 08:58 Dose: 125 mcg Documented by: Mirtazapine (Mirtazapine 15 Mg Tab) 15 mg PO BEDTIME [facility] Last Admin: 06/21/21 21:23 Dose: 15 mg Documented by: Trazodone 150 Mg (Tablet - Pt Own Med) 0 mg PO BEDTIME [facility] Last Admin: 06/21/21 21:25 Dose: 225 mg Documented by: Prednisone (Prednisone 20 Mg Tab) 60 mg PO ONETIME ONE Stop: 06/20/21 20:24 Last Admin: 06/20/21 21:31 Dose: 60 mg Documented by: Prednisone (Prednisone 20 Mg Tab) Confirm Administered Dose 20 mg .ROUTE .STK- MED ONE Stop: 06/20/21 21:29 Last Admin: 06/20/21 23:00 Dose: Not Given Documented by: Prednisone (Prednisone 20 Mg Tab) 40 mg PO WITHBREAKFAST [facility] Last Admin: 06/23/21 06:18 Dose: 40 mg Documented by: Sodium Chloride (Sodium Chloride 0.9% 10 Ml Syringe) 10 ml FLUSH ASDIRECTED PRN PRN Reason: Keep Vein Open Sodium Chloride (Sodium Chloride 0.9% 10 Ml Syringe) 10 ml FLUSH ONETIME PRN PRN Reason: Keep Vein Open Last Admin: 06/20/21 19:42 Dose: 10 ml Documented by: Spironolactone (Spironolactone 25 Mg Tab) 25 mg PO DAILY [facility] Last Admin: 06/21/21 08:57 Dose: 25 mg Documented by: Trazodone HCl (Trazodone 50 Mg Tab) 225 mg PO BEDTIME [facility] Last Admin: 06/22/21 20:31 Dose: 225 mg Documented by: Vancomycin HCl (Pharmacy To Dose - Vancomycin) 1 dose .XX ASDIRECTED [facility] - Exam General: No Acute Distress HEENT: EOMI, Mucous Membr. Moist/Ecru Neck: Supple Lungs: Clear to Auscultation, Normal Respiratory Effort Cardiovascular: Regular Rate, Regular Rhythm GI/Abdominal Exam: Soft, Non-Tender Back Exam: Normal Inspection Skin: Warm, Dry, Intact - Patient Data Lab Results Last 24 hrs: Laboratory Results - last 24 hr 06/23/21 06/23/21 Range/Units 06:17 06:17 WBC 5.04 (4.23-9.07) K/mm3 RBC 3.52 L (4.63-6.08) M/mm3 Hgb 11.2 L (13.7-17.5) gm/dl Hct 33.7 L (40.1-51.0) % MCV 95.7 H (79.0-92.2) fl MCH 31.8 (25.7-32.2) pg MCHC 33.2 (32.2-35.5) g/dl RDW Std Deviation 48.5 H (35.1-43.9) fL Plt Count 152 L (163-337) K/mm3 MPV 9.1 L (9.4-12.3) fl Sodium 141 (136-145) mEq/L Potassium 4.4 (3.5-5.1) mEq/L Chloride 109 H (98-107) mEq/L Carbon Dioxide 23 (21-32) mEq/L Anion Gap 13.4 (5-15) BUN 21 H (7-18) mg/dL Creatinine 1.5 H (0.7-1.3) mg/dL Est Cr Clr Drug Dosing 37.90 mL/min Estimated GFR (MDRD) 45 (>60) mL/min BUN/Creatinine Ratio 14.0 (14-18) Glucose 87 (70-99) mg/dL Calcium 8.2 L (8.5-10.1) mg/dL Result Diagrams: 06/23/21 06:17 06/23/21 06:17 Will Results Last 24 hrs: Microbiology 06/20/21 21:25 Blood Culture - Preliminary Blood 06/20/21 21:30 Blood Culture - Preliminary Blood Sepsis Event Note - Evaluation Sepsis Screening Result: No Definite Risk - Focused Exam Vital Signs: Vital Signs Temp Pulse Resp BP Pulse Ox Pulse Ox 06/23/21 09:05 100 06/23/21 05:55 100 06/23/21 04:16 97.2 F 76 16 99/62 100 - Problem List Review Problem List Initiated/Reviewed/Updated: Yes - My Orders Last 24 Hours: My Active Orders 06/22/21 09:00 Fluticasone Propionate [Flonase] 0 gm NASBOTH DAILY Tiotropium [place] [Spiriva Respimat] 0 gm INH DAILY 06/22/21 Dinner [employer] Dysphagia Diet [DIET] 06/23/21 06:17 PROCALCITONIN [REF] Routine 06/23/21 07:00 Levothyroxine 125 mcg PO DAILY@0700 06/23/21 21:00 QUEtiapine [SEROqueL] 12.5 mg PO BEDTIME - Plan Plan:: This is a 81M presenting for evaluation of sob, cough and hypoxia. In the ED he was hypoxic and requiring supplemental oxygen. CXR showed no clear infiltrate. CT PE negative for PE, right pleural effusion; right lung 4.2 cm mass. He was noted to have elevated WBC. In the ED he was started on prednisone, antibiotics, duonebs and admitted for further evaluation. Per daughter he has had progressive decline over the last few months. Pt antibiotics broadened on 06/21 due to lactic acidosis and hypotension 1. suspected PNA vs COPD exacerbation -->procal 0.11 -changed to vanco+zosyn on 06/21 -dc zosyn 2. Right pleural effusion 3. Right lung mass 4.2 cm 4. Hyperkalemia 5. Chronic kidney disease 6. Suspected adult failure to thrive 7. Hx of HTN 8. Hx of hypothyroidism 9. Hyponatremia 10. Mildly elevated troponin in context of CKD; denied chest pain 11. lactic acidosis; resolved 12. Concern for aspiration 13. Hx of insomnia 14. Hospital acquired delirium Plan -monitor off antibiotics; stop prednisone may be contributing to delirium -PT, OT, PASSENGER ATTENDANT consult - consult; -continue synthroid -hold antihypertensives for now -recheck procal in AM -outpatient video swallow evaluation -aspiration precautions -stop trazadone 06/23 -start scheduled seroquel 12.5 mg qhs 06/23 -overall poor prognosis; daughter had some questions about comfort care; continue to discuss overall goals of care code-DNR/DNi DVT ppx-heparin subq Dispo-DC to Short term rehab once delirium controlled
[2021-06-23] MEDS: Piperacillin/Tazobactam 4.5 GM in Sodium Chloride 0.9% 100 ML IV SCH (09:36)
[2021-06-23] MEDS: Acetaminophen 325 MG Tab PO SCH ×2 (09:45→21:05)
[2021-06-23] MEDS: Cyanocobalamin (Vitamin B12) 1,000 MCG Tab PO SCH (09:45)
[2021-06-23] MEDS: Calcium Carbonate/Vitamin D3 600 MG-200 Units Tab PO SCH ×2 (09:45→21:05)
[2021-06-23] MEDS: Carboxymethylcellulose Sodium 1% Ophth Gel 15 ML Bottle EYEBOTH SCH ×4 (09:45→21:04)
[2021-06-23] MEDS: Fluticasone Propionate Nasal Spray 16 GM Bottle NASBOTH SCH (09:45)
[2021-06-23] MEDS: QUEtiapine 25 MG Tab PO SCH (21:05)
[2021-06-23] MEDS: Mirtazapine 15 MG Tab PO SCH (21:05)
[2021-06-24] MEDS: Heparin Sodium 5,000 Units/ML Vial SUBCUT SCH ×3 (01:34→15:09)
[2021-06-24] MEDS: Albuterol/Ipratropium 3.0-0.5 MG/3 ML Neb Soln NEB SCH ×5 (05:55→20:06)
[2021-06-24] MEDS: Levothyroxine 125 MCG Tab PO SCH (07:03)
[2021-06-24] MEDS: Fluticasone Propionate Nasal Spray 16 GM Bottle NASBOTH SCH (08:08)
[2021-06-24] MEDS: Carboxymethylcellulose Sodium 1% Ophth Gel 15 ML Bottle EYEBOTH SCH ×4 (08:08→20:20)
[2021-06-24] MEDS: Calcium Carbonate/Vitamin D3 600 MG-200 Units Tab PO SCH ×2 (08:09→20:10)
[2021-06-24] MEDS: Cyanocobalamin (Vitamin B12) 1,000 MCG Tab PO SCH (08:09)
[2021-06-24] MEDS: Acetaminophen 325 MG Tab PO SCH ×2 (08:09→20:10)
[2021-06-24] MEDS: Tiotropium Bromide 4 GM Inhalation Spray (2.5mcg/1 dose; 10 doses) INH SCH (08:35)
[2021-06-24] MEDS: Lidocaine 4% 1 each Patch TOP SCH (10:46)
[2021-06-24] MEDS: fentaNYL 12 MCG/HR Transdermal Patch TRDERM SCH (10:46)
[2021-06-24] MEDS: Meloxicam 7.5 MG Tab PO SCH (10:47)
[2021-06-24] MEDS: Diclofenac Sodium 1% Gel 100 GM Tube TOP SCH ×2 (12:12→20:20)
--- NOTE | 2021-06-24 12:20 | PCM.PN ---
- General Info Date of Service: 06/24/21 - Review of Systems General: Reports: No Symptoms HEENT: Reports: No Symptoms Pulmonary: Reports: No Symptoms Cardiovascular: Reports: No Symptoms Gastrointestinal: Reports: No Symptoms Genitourinary: Reports: No Symptoms Musculoskeletal: Reports: Back Pain Skin: Reports: No Symptoms Neurological: Reports: No Symptoms Psychiatric: Reports: No Symptoms - Patient Data Vitals - Most Recent: Last Vital Signs Temp 97.9 F 06/24/21 12:00 Pulse 79 06/24/21 12:00 Resp 14 06/24/21 12:00 BP 105/66 06/24/21 12:00 Pulse Ox 99 06/24/21 12:00 Weight - Most Recent: 72.167 kg I&O - Last 24 Hours: Intake & Output 06/23/21 06/24/21 06/24/21 22:59 06:59 14:59 Intake Total 840 200 Balance 840 200 Lab Results Last 24 Hours: Laboratory Results - last 24 hr 06/23/21 Range/Units 14:30 C.difficile [id number]-[id number] Presumptive negative C. difficile Tox (PCR) Negative Will Results Last 24 Hours: Microbiology 06/21/21 20:40 Blood Culture - Preliminary Blood - Venous - Lab Draw 06/21/21 20:34 Blood Culture - Preliminary Blood - Venous Med Orders - Current: Current Medications Acetaminophen (Acetaminophen 325 Mg Tab) 650 mg PO BID [facility] Last Admin: 06/24/21 08:09 Dose: 650 mg Documented by: Albuterol/Ipratropium (Albuterol/Ipratropium 3.0-0.5 Mg/3 Ml Neb Soln) 3 ml NEB QIDRT [facility] Last Admin: 06/24/21 09:15 Dose: Not Given Documented by: Artificial Tears (Carboxymethylcellulose Sodium 1% Ophth Gel 15 Ml Bottle) 0 ml EYEBOTH QID [facility] Last Admin: 06/24/21 12:12 Dose: Not Given Documented by: Benzonatate (Benzonatate 100 Mg Cap) 100 mg PO BID PRN PRN Reason: Cough Calcium Carbonate (Calcium Carbonate/Vitamin D3 600 Mg-200 Units Tab) 1 tab PO BID [facility] Last Admin: 06/24/21 08:09 Dose: 1 tab Documented by: Cyanocobalamin (Cyanocobalamin (Vitamin B12) 1,000 Mcg Tab) 1,000 mcg PO DAILY [facility] Last Admin: 06/24/21 08:09 Dose: 1,000 mcg Documented by: Diclofenac Sodium (Diclofenac Sodium 1% Gel 100 Gm Tube) 1 gm TOP BID [facility] Last Admin: 06/24/21 12:12 Dose: 1 applic Documented by: Fentanyl (Fentanyl 12 Mcg/Hr Transdermal Patch) 12 mcg TRDERM Q72H [facility] Last Admin: 06/24/21 10:46 Dose: 12 mcg Documented by: Fluticasone Propionate (Fluticasone Propionate Nasal [place] 16 Gm Bottle) 0 gm NASBOTH DAILY [facility] Last Admin: 06/24/21 08:08 Dose: 1 spray Documented by: Heparin Sodium (Porcine) (Heparin Sodium 5,000 Units/Ml Vial) 5,000 units SUBCUT Q8H [facility] Last Admin: 06/24/21 08:08 Dose: 5,000 units Documented by: Levothyroxine Sodium (Levothyroxine 125 Mcg Tab) 125 mcg PO DAILY@0700 [facility] Last Admin: 06/24/21 07:03 Dose: 125 mcg Documented by: Lidocaine (Lidocaine 4% 1 Each Patch) 1 each TOP Q24H [facility] Last Admin: 06/24/21 10:46 Dose: 1 each Documented by: Melatonin (Melatonin 3 Mg Tab) 6 mg PO BEDTIME PRN PRN Reason: Sleep Last Admin: 06/22/21 20:33 Dose: 6 mg Documented by: Meloxicam (Meloxicam 7.5 Mg Tab) 15 mg PO DAILY [facility] Last Admin: 06/24/21 10:47 Dose: 15 mg Documented by: Mirtazapine (Mirtazapine 15 Mg Tab) 15 mg PO BEDTIME [facility] Last Admin: 06/23/21 21:05 Dose: 15 mg Documented by: Miscellaneous Information (Remove Lidocaine 4% Patch) 1 ea TOP Q24H [facility] Miscellaneous Information (Remove And Replace Fentanyl Patch) 1 ea TRDERM Q72H [facility] Ondansetron HCl (Ondansetron 4 Mg/2 Ml Sdv) 4 mg IV Q4H PRN PRN Reason: Nausea/Vomiting Quetiapine Fumarate (Quetiapine 25 Mg Tab) 12.5 mg PO BEDTIME [facility] Last Admin: 06/23/21 21:05 Dose: 12.5 mg Documented by: Tiotropium [place] (Tiotropium [place] 4 Gm Inhalation [place] (2.5mcg/1 Dose; 10 Doses)) 0 gm INH DAILY [facility] Last Admin: 06/24/21 08:35 Dose: 2 inhalation Documented by: Discontinued Medications Albuterol/Ipratropium (Albuterol/Ipratropium 3.0-0.5 Mg/3 Ml Neb Soln) 3 ml NEB QID [facility] Aspirin (Aspirin 81 Mg Tab.Chew) 324 mg PO ONETIME ONE Stop: 06/20/21 20:29 Last Admin: 06/20/21 21:24 Dose: 324 mg Documented by: Azithromycin (Azithromycin 250 Mg Tab) 500 mg PO ONETIME ONE Stop: 06/20/21 20:27 Last Admin: 06/20/21 21:25 Dose: 500 mg Documented by: Azithromycin (Azithromycin 250 Mg Tab) 500 mg PO DAILY [facility] Last Admin: 06/21/21 20:44 Dose: 500 mg Documented by: Cefdinir (Cefdinir 300 Mg Cap) 300 mg PO ONETIME ONE Stop: 06/20/21 20:24 Last Admin: 06/20/21 21:25 Dose: 300 mg Documented by: Cefdinir (Cefdinir 300 Mg Cap) 300 mg PO BID [facility] Last Admin: 06/21/21 20:46 Dose: 300 mg Documented by: Furosemide (Furosemide 40 Mg/4 Ml Vial) 40 mg IVPUSH NOW ONE Stop: 06/20/21 20:24 Last Admin: 06/20/21 21:37 Dose: 40 mg Documented by: Furosemide (Furosemide 40 Mg Tab) 40 mg PO BID [facility] Last Admin: 06/21/21 08:57 Dose: 40 mg Documented by: Sodium Chloride (Normal Saline) 1,000 mls @ 500 mls/hr IV ONETIME ONE Stop: 06/20/21 20:28 Last Infusion: 06/20/21 19:00 Dose: 100 mls/hr Documented by: Sodium Chloride (Normal Saline) 45 mls @ 40 mls/hr IV ASDIRECTED [facility] Last Admin: 06/20/21 19:42 Dose: 40 mls/hr Documented by: Sodium Chloride (Normal Saline) 1,000 mls @ 75 mls/hr IV ASDIRECTED [facility] Last Admin: 06/21/21 02:37 Dose: 75 mls/hr Documented by: Lactated Ringer's (Ringers, Lactated) 250 mls @ 250 mls/hr IV ASDIRECTED [facility] Last Admin: 06/21/21 13:51 Dose: 250 mls/hr Documented by: Lactated Ringer's (Ringers, Lactated) 250 mls @ 125 mls/hr IV ASDIRECTED [facility] Last Admin: 06/21/21 17:30 Dose: 125 mls/hr Documented by: Lactated Ringer's (Ringers, Lactated) 500 mls @ 250 mls/hr IV BOLUS ONE Stop: 06/21/21 21:59 Last Admin: 06/21/21 21:14 Dose: 250 mls/hr Documented by: Piperacillin Sod/Tazobactam (Sod 4.5 gm/ Sodium Chloride) 100 mls @ 200 mls/hr IV ONETIME ONE Stop: 06/21/21 20:59 Last Admin: 06/21/21 20:41 Dose: 200 mls/hr Documented by: Piperacillin Sod/Tazobactam (Sod 4.5 gm/ Sodium Chloride) 100 mls @ 25 mls/hr IV Q8H [facility] Last Admin: 06/23/21 09:36 Dose: Not Given Documented by: Vancomycin HCl 1 gm/ Sodium (Chloride) 250 mls @ 250 mls/hr IV Q24H [facility] Last Admin: 06/21/21 21:15 Dose: 250 mls/hr Documented by: Iopamidol (Iopamidol 755 Mg/Ml 100 Ml Bottle) 100 ml IVPUSH ONETIME ONE Stop: 06/20/21 18:43 Last Admin: 06/20/21 19:42 Dose: 100 ml Documented by: Labetalol HCl (Labetalol 100 Mg Tab) 100 mg PO ONETIME ONE Stop: 06/20/21 20:29 Last Admin: 06/20/21 23:32 Dose: Not Given Documented by: Labetalol HCl (Labetalol 100 Mg TabPt Own) 100 mg PO ONETIME ONE Stop: 06/20/21 23:31 Last Admin: 06/20/21 23:33 Dose: 100 mg Documented by: Labetalol HCl (Labetalol 100 Mg Tab) 100 mg PO BID [facility] Last Admin: 06/21/21 08:56 Dose: 100 mg Documented by: Labetalol HCl (Labetalol 100 Mg Tab) 100 mg PO BID [facility] Levothyroxine Sodium (Levothyroxine 125 Mcg Tab) 125 mcg PO DAILY [facility] Last Admin: 06/21/21 08:58 Dose: 125 mcg Documented by: Mirtazapine (Mirtazapine 15 Mg Tab) 15 mg PO BEDTIME [facility] Last Admin: 06/21/21 21:23 Dose: 15 mg Documented by: Trazodone 150 Mg (Tablet - Pt Own Med) 0 mg PO BEDTIME [facility] Last Admin: 06/21/21 21:25 Dose: 225 mg Documented by: Prednisone (Prednisone 20 Mg Tab) 60 mg PO ONETIME ONE Stop: 06/20/21 20:24 Last Admin: 06/20/21 21:31 Dose: 60 mg Documented by: Prednisone (Prednisone 20 Mg Tab) Confirm Administered Dose 20 mg .ROUTE .STK- MED ONE Stop: 06/20/21 21:29 Last Admin: 06/20/21 23:00 Dose: Not Given Documented by: Prednisone (Prednisone 20 Mg Tab) 40 mg PO WITHBREAKFAST [facility] Last Admin: 06/23/21 06:18 Dose: 40 mg Documented by: Sodium Chloride (Sodium Chloride 0.9% 10 Ml Syringe) 10 ml FLUSH ASDIRECTED PRN PRN Reason: Keep Vein Open Sodium Chloride (Sodium Chloride 0.9% 10 Ml Syringe) 10 ml FLUSH ONETIME PRN PRN Reason: Keep Vein Open Last Admin: 06/20/21 19:42 Dose: 10 ml Documented by: Spironolactone (Spironolactone 25 Mg Tab) 25 mg PO DAILY [facility] Last Admin: 06/21/21 08:57 Dose: 25 mg Documented by: Trazodone HCl (Trazodone 50 Mg Tab) 225 mg PO BEDTIME [facility] Last Admin: 06/22/21 20:31 Dose: 225 mg Documented by: Vancomycin HCl (Pharmacy To Dose - Vancomycin) 1 dose .XX ASDIRECTED [facility] - Exam General: Alert, Oriented Lungs: Decreased Breath Sounds (in all lung diehl) Cardiovascular: Regular Rate, Regular Rhythm GI/Abdominal Exam: Normal Bowel Sounds, Soft, Non-Tender, No Organomegaly, No Distention, No Mass (Male) Exam: Deferred Back Exam: Other (Tenderness across right SI joint, no vertebral tenderness to palpation or percussion) Extremities: Normal Inspection, Normal Range of Motion, Non-Tender, No Pedal Edema, Normal Capillary Refill Skin: Warm, Dry, Intact Neurological: No New Focal Deficit Psy/Mental Status: Alert, Normal Affect, Agitated - Patient Data Lab Results Last 24 hrs: Laboratory Results - last 24 hr 06/23/21 Range/Units 14:30 C.difficile 027-NAP1-B1 Presumptive negative C. difficile Tox (PCR) Negative Result Diagrams: 06/23/21 06:17 06/23/21 06:17 Will Results Last 24 hrs: Microbiology 06/21/21 20:40 Blood Culture - Preliminary Blood - Venous - Lab Draw 06/21/21 20:34 Blood Culture - Preliminary Blood - Venous Sepsis Event Note - Evaluation Sepsis Screening Result: No Definite Risk - Focused Exam Vital Signs: Vital Signs Temp Pulse Resp BP Pulse Ox Pulse Ox 06/24/21 12:00 97.9 F 79 14 105/66 99 06/24/21 08:35 98 06/24/21 07:24 97.3 F 85 16 95/72 100 06/24/21 05:56 100 06/24/21 05:10 97.5 F 76 16 99/73 99 06/24/21 00:59 98.1 F 75 18 109/78 100 - Problem List & Annotations (1) COPD exacerbation SNOMED Code(s): 622155770 Code(s): J44.1 - CHRONIC OBSTRUCTIVE PULMONARY DISEASE W (ACUTE) EXACERBATION Status: Acute Priority: High Current Visit: Yes Onset Date: ~06/21/21 (2) Compression fracture of L2 lumbar vertebra SNOMED Code(s): 42658246727099839 Code(s): S32.020A - WEDGE COMPRESSION FRACTURE OF SECOND LUMBAR VERTEBRA, INIT Status: Acute Priority: High Current Visit: No Onset Date: 01/19/16 Annotation/Comment:: - S/p Fall - Vitamin D level: normal - Mod-Severe L2 Compression Fx: Chronic vs Sub Acute on MRI - Fentanyl patch and oxycodone prn meds - Lumbar support - Seen and evaluated by Ortho - Follow up Ortho in 1 week (3) Alcohol abuse SNOMED Code(s): 67370898 Code(s): F10.10 - ALCOHOL ABUSE, UNCOMPLICATED Status: Chronic Priority: High Current Visit: No Onset Date: 02/19/16 Annotation/Comment:: - Chronic Alcoholic - Counseled on ETOH Abuse - Offered help; refused - Was on [facility] protocol - Problem List Review Problem List Initiated/Reviewed/Updated: Yes - Plan Plan:: This is a 81M presenting for evaluation of sob, cough and hypoxia. In the ED he was hypoxic and requiring supplemental oxygen. CXR showed no clear infiltrate. CT PE negative for PE, right pleural effusion; right lung 4.2 cm mass. He was noted to have elevated WBC. In the ED he was started on prednisone, antibiotics, duonebs and admitted for further evaluation. Per daughter he has had progressive decline over the last few months. Pt antibiotics broadened on 06/21 due to lactic acidosis and hypotension 1. suspected PNA vs COPD exacerbation -->procal 0.11 -changed to vanco+zosyn on 06/21 -dc zosyn 2. Right pleural effusion 3. Right lung mass 4.2 cm 4. Hyperkalemia 5. Chronic kidney disease 6. Suspected adult failure to thrive 7. Hx of HTN 8. Hx of hypothyroidism 9. Hyponatremia 10. Mildly elevated troponin in context of CKD; denied chest pain 11. lactic acidosis; resolved 12. Concern for aspiration 13. Hx of insomnia 14. Hospital acquired delirium Plan -monitor off antibiotics; stop prednisone may be contributing to delirium -PT, OT, CHEST PAIN COORDINATOR consult -SW consult; -continue synthroid -hold antihypertensives for now -recheck procal in AM -outpatient video swallow evaluation -aspiration precautions -stop trazadone 06/23 -start scheduled seroquel 12.5 mg qhs 06/23 -overall poor prognosis; daughter had some questions about comfort care; continue to discuss overall goals of care code-DNR/DNi DVT ppx-heparin subq Dispo-DC to Short term rehab once delirium controlled 06/24/2021 Assessment: KUNAL is an 81yo male presenting for evaluation of sob, cough and hypoxia which was treated with prednisone, vanco/zosyn, and duonebs. Today he complains of back pain with tenderness over the right SI joint. Daughter notes a progressive decline over the last few months with increased complaints about decreasing quality of life. 1. Hx of vertebral compression fx of T11-T12, L2 end plate compression 2. Sacroiliitis right SI joint, right gluteal bursitis 3. Hx of dysphagia 4. Agitation 5. Hx of insomnia 6. Hx of alcoholism Plan: - CT chest and abdomen - Fentanyl patch on T11-L2 - Lidocaine patch on T11-L2 - upper outer quadrant of right gluteus pool injection of lidocaine/glucocorticoid - outpatient video swallow evaluation - continue diet of soft foods as tolerated - continue quetiapine 12.5 mg qhs - continue to monitor for signs of withdrawal
[2021-06-24] MEDS ORDERED: Triamcinolone Acetonide 40 MG/ML 1 ML SDV INJECT ONE (17:39)
[2021-06-24] MEDS ORDERED: Bupivacaine 0.5% 10 ML SDV INJECT ONE (17:48)
[2021-06-24] MEDS: QUEtiapine 25 MG Tab PO SCH (20:10)
[2021-06-24] MEDS: Mirtazapine 15 MG Tab PO SCH (20:10)
[2021-06-25] MEDS: Heparin Sodium 5,000 Units/ML Vial SUBCUT SCH ×3 (01:05→15:34)
[2021-06-25] MEDS: Albuterol/Ipratropium 3.0-0.5 MG/3 ML Neb Soln NEB SCH ×4 (05:29→20:08)
[2021-06-25] MEDS: Levothyroxine 125 MCG Tab PO SCH (06:09)
[2021-06-25] MEDS: Tiotropium Bromide 4 GM Inhalation Spray (2.5mcg/1 dose; 10 doses) INH SCH (08:59)
[2021-06-25] MEDS ORDERED: QUEtiapine 25 MG Tab PO SCH (09:00)
[2021-06-25] MEDS: Fluticasone Propionate Nasal Spray 16 GM Bottle NASBOTH SCH (10:03)
[2021-06-25] MEDS: Calcium Carbonate/Vitamin D3 600 MG-200 Units Tab PO SCH ×2 (10:03→21:28)
[2021-06-25] MEDS: Meloxicam 7.5 MG Tab PO SCH (10:03)
[2021-06-25] MEDS: Cyanocobalamin (Vitamin B12) 1,000 MCG Tab PO SCH (10:04)
[2021-06-25] MEDS: Carboxymethylcellulose Sodium 1% Ophth Gel 15 ML Bottle EYEBOTH SCH ×4 (10:04→21:30)
[2021-06-25] MEDS: Acetaminophen 325 MG Tab PO SCH ×2 (10:04→21:28)
[2021-06-25] MEDS: Diclofenac Sodium 1% Gel 100 GM Tube TOP SCH ×2 (10:04→21:29)
[2021-06-25] MEDS: Lidocaine 4% 1 each Patch TOP SCH (10:05)
[2021-06-25] MEDS: Acetaminophen/HYDROcodone 325-5 MG Tab PO PRN ×2 (13:55→21:29)
[2021-06-25] MEDS ORDERED: QUEtiapine 25 MG Tab PO ONE (15:26)
--- NOTE | 2021-06-25 15:41 | PCM.PN ---
- General Info Date of Service: 06/25/21 Admission Dx/Problem (Free Text): Admission Diagnosis/Problem Admission Diagnosis/Problem Chronic obstructive pulmonary disease Subjective Update: 06/25/21 afebrile vss// room air. back pain severe would like injection now refused x 2 prev. hurts when he moves but did not sit in chair today per preference. refused labs and ate well for lunch. drinking fluids fair. memory still present for yesterdays conversations. mood improved currently but has been very angry to all staff since last night . increased quintapine. to 25 mg day. p.e. unchanged. -comfort measures discussed with daughter who agrees. d-iscussed ct scan refused and will not force him to do this. - assess: etoh abuse chronic with mixed features of mood swings and forgetfulness. no acute withdrawal today . -dementia features. -chronic back pain likely compression fracture of thorasic and lumbar spine. djd as well and spondylolisthesis not ruled out but chronic and s- -subacute responding to pain patch and quintapine. meloxicam helping but he refuses it sometimes. -n.h placment being arranged for assistance and dementia concerns. -chronic etohism avoiding etoh for now address when he returns to [facility] Functional Status: Reports: Tolerating Diet. Denies: Pain Controlled - Review of Systems General: Reports: No Symptoms HEENT: Reports: No Symptoms Pulmonary: Reports: No Symptoms Cardiovascular: Reports: No Symptoms Gastrointestinal: Reports: No Symptoms Genitourinary: Reports: No Symptoms Musculoskeletal: Reports: No Symptoms Skin: Reports: No Symptoms Neurological: Reports: No Symptoms, Pre-Existing Deficit. Denies: Tremors Psychiatric: Reports: Mood Lability, Anxiety, Agitation. Denies: No Symptoms - Patient Data Vitals - Most Recent: Last Vital Signs Temp 36.4 C 06/25/21 11:44 Pulse 84 06/25/21 11:44 Resp 16 06/25/21 11:44 BP 125/83 06/25/21 11:44 Pulse Ox 100 06/25/21 11:44 Weight - Most Recent: 71.94 kg I&O - Last 24 Hours: Intake & Output 06/25/21 06/25/21 06/25/21 06:59 14:59 22:59 Intake Total 250 0 Balance 250 0 Med Orders - Current: Current Medications Acetaminophen (Acetaminophen 325 Mg Tab) 650 mg PO BID [facility] Last Admin: 06/25/21 10:04 Dose: Not Given Documented by: Hydrocodone Bitart/Acetaminophen (Acetaminophen/Hydrocodone 325-5 Mg Tab) 2 tab PO Q6H PRN PRN Reason: Pain Last Admin: 06/25/21 13:55 Dose: 2 tab Documented by: Albuterol/Ipratropium (Albuterol/Ipratropium 3.0-0.5 Mg/3 Ml Neb Soln) 3 ml NEB QIDRT [facility] Last Admin: 06/25/21 08:59 Dose: 3 ml Documented by: Artificial Tears (Carboxymethylcellulose Sodium 1% Ophth Gel 15 Ml Bottle) 0 ml EYEBOTH QID [facility] Last Admin: 06/25/21 13:13 Dose: Not Given Documented by: Benzonatate (Benzonatate 100 Mg Cap) 100 mg PO BID PRN PRN Reason: Cough Calcium Carbonate (Calcium Carbonate/Vitamin D3 600 Mg-200 Units Tab) 1 tab PO BID [facility] Last Admin: 06/25/21 10:03 Dose: Not Given Documented by: Cyanocobalamin (Cyanocobalamin (Vitamin B12) 1,000 Mcg Tab) 1,000 mcg PO DAILY [facility] Last Admin: 06/25/21 10:04 Dose: Not Given Documented by: Diclofenac Sodium (Diclofenac Sodium 1% Gel 100 Gm Tube) 1 gm TOP BID [facility] Last Admin: 06/25/21 10:04 Dose: Not Given Documented by: Fentanyl (Fentanyl 12 Mcg/Hr Transdermal Patch) 12 mcg TRDERM Q72H [facility] Last Admin: 06/24/21 10:46 Dose: 12 mcg Documented by: Fluticasone Propionate (Fluticasone Propionate Nasal [place] 16 Gm Bottle) 0 gm NASBOTH DAILY [facility] Last Admin: 06/25/21 10:03 Dose: Not Given Documented by: Heparin Sodium (Porcine) (Heparin Sodium 5,000 Units/Ml Vial) 5,000 units SUBCUT Q8H [facility] Last Admin: 06/25/21 10:03 Dose: Not Given Documented by: Levothyroxine Sodium (Levothyroxine 125 Mcg Tab) 125 mcg PO DAILY@0700 [facility] Last Admin: 06/25/21 06:09 Dose: Not Given Documented by: Lidocaine (Lidocaine 4% 1 Each Patch) 1 each TOP Q24H [facility] Last Admin: 06/25/21 10:05 Dose: Not Given Documented by: Melatonin (Melatonin 3 Mg Tab) 6 mg PO BEDTIME PRN PRN Reason: Sleep Last Admin: 06/22/21 20:33 Dose: 6 mg Documented by: Meloxicam (Meloxicam 7.5 Mg Tab) 15 mg PO DAILY [facility] Last Admin: 06/25/21 10:03 Dose: Not Given Documented by: Mirtazapine (Mirtazapine 15 Mg Tab) 15 mg PO BEDTIME [facility] Last Admin: 06/24/21 20:10 Dose: 15 mg Documented by: Miscellaneous Information (Remove Lidocaine 4% Patch) 1 ea TOP Q24H [facility] Last Admin: 06/24/21 23:29 Dose: Not Given Documented by: Miscellaneous Information (Remove And Replace Fentanyl Patch) 1 ea TRDERM Q72H [facility] Ondansetron HCl (Ondansetron 4 Mg/2 Ml Sdv) 4 mg IV Q4H PRN PRN Reason: Nausea/Vomiting Quetiapine Fumarate (Quetiapine 25 Mg Tab) 25 mg PO BEDTIME [facility] Tiotropium [place] (Tiotropium [place] 4 Gm Inhalation [place] (2.5mcg/1 Dose; 10 Doses)) 0 gm INH DAILY [facility] Last Admin: 06/25/21 08:59 Dose: 2 inhalation Documented by: Discontinued Medications Albuterol/Ipratropium (Albuterol/Ipratropium 3.0-0.5 Mg/3 Ml Neb Soln) 3 ml NEB QID [facility] Aspirin (Aspirin 81 Mg Tab.Chew) 324 mg PO ONETIME ONE Stop: 06/20/21 20:29 Last Admin: 06/20/21 21:24 Dose: 324 mg Documented by: Azithromycin (Azithromycin 250 Mg Tab) 500 mg PO ONETIME ONE Stop: 06/20/21 20:27 Last Admin: 06/20/21 21:25 Dose: 500 mg Documented by: Azithromycin (Azithromycin 250 Mg Tab) 500 mg PO DAILY [facility] Last Admin: 06/21/21 20:44 Dose: 500 mg Documented by: Bupivacaine HCl (Bupivacaine 0.5% 10 Ml Sdv) 10 ml INJECT ONETIME ONE Stop: 06/24/21 17:49 Last Admin: 06/24/21 19:20 Dose: Not Given Documented by: Cefdinir (Cefdinir 300 Mg Cap) 300 mg PO ONETIME ONE Stop: 06/20/21 20:24 Last Admin: 06/20/21 21:25 Dose: 300 mg Documented by: Cefdinir (Cefdinir 300 Mg Cap) 300 mg PO BID [facility] Last Admin: 06/21/21 20:46 Dose: 300 mg Documented by: Furosemide (Furosemide 40 Mg/4 Ml Vial) 40 mg IVPUSH NOW ONE Stop: 06/20/21 20:24 Last Admin: 06/20/21 21:37 Dose: 40 mg Documented by: Furosemide (Furosemide 40 Mg Tab) 40 mg PO BID [facility] Last Admin: 06/21/21 08:57 Dose: 40 mg Documented by: Sodium Chloride (Normal Saline) 1,000 mls @ 500 mls/hr IV ONETIME ONE Stop: 06/20/21 20:28 Last Infusion: 06/20/21 19:00 Dose: 100 mls/hr Documented by: Sodium Chloride (Normal Saline) 45 mls @ 40 mls/hr IV ASDIRECTED [facility] Last Admin: 06/20/21 19:42 Dose: 40 mls/hr Documented by: Sodium Chloride (Normal Saline) 1,000 mls @ 75 mls/hr IV ASDIRECTED [facility] Last Admin: 06/21/21 02:37 Dose: 75 mls/hr Documented by: Lactated Ringer's (Ringers, Lactated) 250 mls @ 250 mls/hr IV ASDIRECTED [facility] Last Admin: 06/21/21 13:51 Dose: 250 mls/hr Documented by: Lactated Ringer's (Ringers, Lactated) 250 mls @ [facility] Admin: 06/21/21 17:30 Dose: 125 mls/hr Documented by: Lactated Ringer's (Ringers, Lactated) 500 mls @ 250 mls/hr IV BOLUS ONE Stop: 06/21/21 21:59 Last Admin: 06/21/21 21:14 Dose: 250 mls/hr Documented by: Piperacillin Sod/Tazobactam (Sod 4.5 gm/ Sodium Chloride) 100 mls @ 200 mls/hr IV ONETIME ONE Stop: 06/21/21 20:59 Last Admin: 06/21/21 20:41 Dose: 200 mls/hr Documented by: Piperacillin Sod/Tazobactam (Sod 4.5 gm/ Sodium Chloride) 100 mls @ 25 mls/hr IV Q8H [facility] Last Admin: 06/23/21 09:36 Dose: Not Given Documented by: Vancomycin HCl 1 gm/ Sodium (Chloride) 250 mls @ 250 mls/hr IV Q24H [facility] Last Admin: 06/21/21 21:15 Dose: 250 mls/hr Documented by: Iopamidol (Iopamidol 755 Mg/Ml 100 Ml Bottle) 100 ml IVPUSH ONETIME ONE Stop: 06/20/21 18:43 Last Admin: 06/20/21 19:42 Dose: 100 ml Documented by: Labetalol HCl (Labetalol 100 Mg Tab) 100 mg PO ONETIME ONE Stop: 06/20/21 20:29 Last Admin: 06/20/21 23:32 Dose: Not Given Documented by: Labetalol HCl (Labetalol 100 Mg TabPt Own) 100 mg PO ONETIME ONE Stop: 06/20/21 23:31 Last Admin: 06/20/21 23:33 Dose: 100 mg Documented by: Labetalol HCl (Labetalol 100 Mg Tab) 100 mg PO BID [facility] Last Admin: 06/21/21 08:56 Dose: 100 mg Documented by: Labetalol HCl (Labetalol 100 Mg Tab) 100 mg PO BID [facility] Levothyroxine Sodium (Levothyroxine 125 Mcg Tab) 125 mcg PO DAILY [facility] Last Admin: 06/21/21 08:58 Dose: 125 mcg Documented by: Mirtazapine (Mirtazapine 15 Mg Tab) 15 mg PO BEDTIME [facility] Last Admin: 06/21/21 21:23 Dose: 15 mg Documented by: Trazodone 150 Mg (Tablet - Pt Own Med) 0 mg PO BEDTIME [facility] Last Admin: 06/21/21 21:25 Dose: 225 mg Documented by: Prednisone (Prednisone 20 Mg Tab) 60 mg PO ONETIME ONE Stop: 06/20/21 20:24 Last Admin: 06/20/21 21:31 Dose: 60 mg Documented by: Prednisone (Prednisone 20 Mg Tab) Confirm Administered Dose 20 mg .ROUTE .STK- MED ONE Stop: 06/20/21 21:29 Last Admin: 06/20/21 23:00 Dose: Not Given Documented by: Prednisone (Prednisone 20 Mg Tab) 40 mg PO WITHBREAKFAST [facility] Last Admin: 06/23/21 06:18 Dose: 40 mg Documented by: Quetiapine Fumarate (Quetiapine 25 Mg Tab) 12.5 mg PO BEDTIME [facility] Last Admin: 06/24/21 20:10 Dose: 12.5 mg Documented by: Quetiapine Fumarate (Quetiapine 25 Mg Tab) 12.5 mg PO BID [facility] Last Admin: 06/25/21 10:04 Dose: Not Given Documented by: Quetiapine Fumarate (Quetiapine 25 Mg Tab) 25 mg PO ONETIME ONE Stop: 06/25/21 15:27 Sodium Chloride (Sodium Chloride 0.9% 10 Ml Syringe) 10 ml FLUSH ASDIRECTED PRN PRN Reason: Keep Vein Open Sodium Chloride (Sodium Chloride 0.9% 10 Ml Syringe) 10 ml FLUSH ONETIME PRN PRN Reason: Keep Vein Open Last Admin: 06/20/21 19:42 Dose: 10 ml Documented by: Spironolactone (Spironolactone 25 Mg Tab) 25 mg PO DAILY [facility] Last Admin: 06/21/21 08:57 Dose: 25 mg Documented by: Trazodone HCl (Trazodone 50 Mg Tab) 225 mg PO BEDTIME [facility] Last Admin: 06/22/21 20:31 Dose: 225 mg Documented by: Triamcinolone Acetonide (Triamcinolone Acetonide 40 Mg/Ml 1 Ml Sdv) [address] ONETIME ONE Stop: 06/24/21 17:40 Last Admin: 06/24/21 19:19 Dose: Not Given Documented by: Vancomycin HCl (Pharmacy To Dose - Vancomycin) 1 dose .XX ASDIRECTED [facility] - Exam General: Alert, Oriented HEENT: Pupils Equal, Pupils Reactive, EOMI, Mucous Membr. Moist/Ak Chin Neck: Supple Lungs: Clear to Auscultation, Normal Respiratory Effort Cardiovascular: Regular Rate, Regular Rhythm GI/Abdominal Exam: Normal Bowel Sounds, Soft, Non-Tender, No Organomegaly, No Distention, No Abnormal Bruit, No Mass, Pelvis Stable (Male) Exam: No Hernia, Normal Inspection, Normal Prostate, Circumcised Back Exam: Normal Inspection, Full Range of Motion Extremities: Normal Inspection, Normal Range of Motion, Non-Tender, No Pedal Edema, Normal Capillary Refill Skin: Warm, Dry, Intact Wound/Incisions: Healing Well Neurological: No New Focal Deficit Psy/Mental Status: Alert, Normal Affect, Normal Mood - Patient Data Result Diagrams: 06/23/21 06:17 06/23/21 06:17 Sepsis Event Note - Evaluation Sepsis Screening Result: No Definite Risk - Focused Exam Vital Signs: Vital Signs Temp Pulse Resp BP Pulse Ox Pulse Ox 06/25/21 11:44 36.4 C 84 16 125/83 100 06/25/21 08:59 94 L 06/25/21 07:34 36.4 C 82 20 109/61 99 06/25/21 05:30 93 L 06/25/21 05:27 75 103/52 L 100 - Problem List & Annotations (1) COPD exacerbation SNOMED Code(s): 065342528 Code(s): J44.1 - CHRONIC OBSTRUCTIVE PULMONARY DISEASE W (ACUTE) EXACERBATION Status: Acute Priority: Medium Current Visit: Yes Onset Date: ~06/21/21 Annotation/Comment:: stable (2) Compression fracture of L2 lumbar vertebra SNOMED Code(s): 48907385439848983 Code(s): S32.020A - WEDGE COMPRESSION FRACTURE OF SECOND LUMBAR VERTEBRA, INIT Status: Acute Priority: High Current Visit: No Onset Date: 01/19/16 Qualifiers: Encounter type: initial encounter Qualified Code(s): S32.020A - Wedge compression fracture of second lumbar vertebra, initial encounter for closed fracture Annotation/Comment:: - S/p Fall - Vitamin D level: normal - Mod-Severe L2 Compression Fx: Chronic vs Sub Acute on MRI - Fentanyl patch and oxycodone prn meds - Lumbar support - Seen and evaluated by Ortho - Follow up Ortho in 1 week -treating insomnia and helping somewhat for back pain (3) Ribs, multiple fractures SNOMED Code(s): 3653576 Code(s): S22.49XA - MULTIPLE FRACTURES OF RIBS, UNSP SIDE, INIT FOR CLOS FX Status: Acute Priority: Medium Current Visit: No Onset Date: 02/19/16 Qualifiers: Encounter type: sequela Fracture type: closed Laterality: left Qualifie d Code(s): S22.42XS - Multiple fractures of ribs, left side, sequela (4) Alcohol abuse SNOMED Code(s): 86762333 Code(s): F10.10 - ALCOHOL ABUSE, UNCOMPLICATED Status: Chronic Priority: High Current Visit: No Onset Date: 02/19/16 Annotation/Comment:: - Chronic Alcoholic - Counseled on ETOH Abuse - Offered help; refused - Was on CIWA protocol -mood swings without def features of korsikoffs or werneiches syndrome but anger episodes lifelong. - Problem List Review Problem List Initiated/Reviewed/Updated: Yes - My Orders Last 24 Hours: My Active Orders 06/25/21 05:11 Acetaminophen/HYDROcodone [[place] 325-5 MG] 2 tab PO Q6H PRN 06/26/21 21:00 QUEtiapine [SEROqueL] 25 mg PO BEDTIME - Plan Plan:: This is a 81M presenting for evaluation of sob, cough and hypoxia. In the ED he was hypoxic and requiring supplemental oxygen. CXR showed no clear infiltrate. CT PE negative for PE, right pleural effusion; right lung 4.2 cm mass. He was n oted to have elevated WBC. In the ED he was started on prednisone, antibiotics, duonebs and admitted for further evaluation. Per daughter he has had progressive decline over the last few months. Pt antibiotics broadened on 06/21 due to lactic acidosis and hypotension 1. suspected PNA vs COPD exacerbation -->procal 0.11 -changed to vanco+zosyn on 06/21 -dc zosyn 2. Right pleural effusion 3. Right lung mass 4.2 cm 4. Hyperkalemia 5. Chronic kidney disease 6. Suspected adult failure to thrive 7. Hx of HTN 8. Hx of hypothyroidism 9. Hyponatremia 10. Mildly elevated troponin in context of CKD; denied chest pain 11. lactic acidosis; resolved 12. Concern for aspiration 13. Hx of insomnia 14. Hospital acquired delirium Plan -monitor off antibiotics; stop prednisone may be contributing to delirium -PT, OT, SECURITY CONSULTANT consult -SW consult; -continue synthroid -hold antihypertensives for now -recheck procal in AM -outpatient video swallow evaluation -aspiration precautions -stop trazadone 06/23 -start scheduled seroquel 12.5 mg qhs 06/23 -overall poor prognosis; daughter had some questions about comfort care; continue to discuss overall goals of care code-DNR/DNi DVT ppx-heparin subq Dispo-DC to Short term rehab once delirium controlled 06/24/2021 Assessment: RF is an 81yo male presenting for evaluation of sob, cough and hypoxia which was treated with prednisone, vanco/zosyn, and duonebs. Today he complains of back pain with tenderness over the right SI joint. Daughter notes a progressive decline over the last few months with increased complaints about decreasing quality of life. 1. Hx of vertebral compression fx of T11-T12, L2 end plate compression 2. Sacroiliitis right SI joint, right gluteal bursitis 3. Hx of dysphagia 4. Agitation 5. Hx of insomnia 6. Hx of alcoholism Plan: - CT chest and abdomen - Fentanyl patch on T11-L2 - Lidocaine patch on T11-L2 - upper outer quadrant of right gluteus pool injection of lidocaine/glucocorticoid - outpatient video swallow evaluation - continue diet of soft foods as tolerated - continue quetiapine 12.5 mg qhs - continue to monitor for signs of withdrawal 06/25/21 afebrile vss// room air. back pain severe would like injection now refused x 2 prev. hurts when he moves but did not sit in chair today per preference. refused labs and ate well for lunch. drinking fluids fair. memory still present for yesterdays conversations. mood improved currently but has been very angry to all staff since last night . increased quintapine. to 25 mg day. p.e. unchanged. -comfort measures discussed with daughter who agrees. d-iscussed ct scan refused and will not force him to do this. - assess: etoh abuse chronic with mixed features of mood swings and forgetfulness. no acute withdrawal today . -dementia features. -chronic back pain likely compression fracture of thorasic and lumbar spine. djd as well and spondylolisthesis not ruled out but chronic and s- -subacute responding to pain patch and quintapine. meloxicam helping but he refuses it sometimes. -[facility] plac[facility] being arranged for assistance and dementia concerns. -chronic etohism avoiding etoh for now address when he returns to [facility]
[2021-06-25] MEDS: Mirtazapine 15 MG Tab PO SCH (21:29)
[2021-06-25] MEDS: Melatonin 3 MG Tab PO PRN (21:29)
[2021-06-26] MEDS: Heparin Sodium 5,000 Units/ML Vial SUBCUT SCH ×3 (00:01→15:59)
[2021-06-26] MEDS: Levothyroxine 125 MCG Tab PO SCH ×2 (05:35→06:06)
[2021-06-26] MEDS: Albuterol/Ipratropium 3.0-0.5 MG/3 ML Neb Soln NEB SCH ×4 (05:54→20:21)
[2021-06-26] MEDS: Calcium Carbonate/Vitamin D3 600 MG-200 Units Tab PO SCH ×2 (08:44→21:23)
[2021-06-26] MEDS: Meloxicam 7.5 MG Tab PO SCH (08:44)
[2021-06-26] MEDS: Acetaminophen 325 MG Tab PO SCH ×2 (08:44→21:24)
[2021-06-26] MEDS: Cyanocobalamin (Vitamin B12) 1,000 MCG Tab PO SCH (08:44)
[2021-06-26] MEDS: Carboxymethylcellulose Sodium 1% Ophth Gel 15 ML Bottle EYEBOTH SCH ×4 (08:45→21:23)
[2021-06-26] MEDS: Fluticasone Propionate Nasal Spray 16 GM Bottle NASBOTH SCH (08:45)
[2021-06-26] MEDS: Diclofenac Sodium 1% Gel 100 GM Tube TOP SCH ×2 (08:45→21:26)
[2021-06-26] MEDS: Tiotropium Bromide 4 GM Inhalation Spray (2.5mcg/1 dose; 10 doses) INH SCH (09:00)
[2021-06-26] MEDS: Lidocaine 4% 1 each Patch TOP SCH (09:36)
--- NOTE | 2021-06-26 14:08 | PCM.PN ---
- General Info Date of Service: 06/26/21 - Review of Systems General: Reports: No Symptoms HEENT: Reports: No Symptoms Pulmonary: Reports: No Symptoms Cardiovascular: Reports: No Symptoms Gastrointestinal: Reports: No Symptoms Genitourinary: Reports: No Symptoms Musculoskeletal: Reports: Back Pain (radiating to L hip) Skin: Reports: No Symptoms Neurological: Reports: No Symptoms Psychiatric: Reports: No Symptoms - Patient Data Vitals - Most Recent: Last Vital Signs Temp 97.2 F 06/26/21 13:19 Pulse 78 06/26/21 13:19 Resp 20 06/26/21 13:19 BP 126/75 06/26/21 13:19 Pulse Ox 99 06/26/21 13:19 Weight - Most Recent: 70.896 kg I&O - Last 24 Hours: Intake & Output 06/25/21 06/26/21 06/26/21 22:59 06:59 14:59 Intake Total 1060 Balance 1060 Lab Results Last 24 Hours: Laboratory Results - last 24 hr 06/26/21 06/26/21 Range/Units 05:31 05:31 WBC 4.58 (4.23-9.07) K/mm3 RBC 3.68 L (4.63-6.08) M/mm3 Hgb 11.7 L (13.7-17.5) gm/dl Hct 36.3 L (40.1-51.0) % MCV 98.6 H (79.0-92.2) fl MCH 31.8 (25.7-32.2) pg MCHC 32.2 (32.2-35.5) g/dl RDW Std Deviation 51.2 H (35.1-43.9) fL Plt Count 126 L (163-337) K/mm3 MPV 9.0 L (9.4-12.3) fl Neut % (Auto) 59.0 (34.0-67.9) % Lymph % (Auto) 26.0 (21.8-53.1) % Wells % (Auto) 10.3 (5.3-12.2) % Eos % (Auto) 3.1 (0.8-7.0) Baso % (Auto) 0.7 (0.1-1.2) % Neut # (Auto) 2.71 (1.78-5.38) K/mm3 Lymph # (Auto) 1.19 L (1.32-3.57) K/mm3 Wells # (Auto) 0.47 (0.30-0.82) K/mm3 Eos # (Auto) 0.14 (0.04-0.54) K/mm3 Baso # (Auto) 0.03 (0.01-0.08) K/mm3 Sodium 142 (136-145) mEq/L Potassium 4.3 (3.5-5.1) mEq/L Chloride 108 H (98-107) mEq/L Carbon Dioxide 27 (21-32) mEq/L Anion Gap 11.3 (5-15) BUN 17 (7-18) mg/dL Creatinine 1.2 (0.7-1.3) mg/dL Est Cr Clr Drug Dosing 46.77 mL/min Estimated GFR (MDRD) 58 (>60) mL/min BUN/Creatinine Ratio 14.2 (14-18) Glucose 77 (70-99) mg/dL Calcium 8.7 (8.5-10.1) mg/dL Magnesium 1.8 (1.8-2.4) mg/dL Total Bilirubin 0.4 (0.2-1.0) mg/dL AST 28 (15-37) U/L ALT 46 (16-63) U/L Alkaline Phosphatase 84 (46-116) U/L Total Protein 5.1 L (6.4-8.2) g/dl Albumin 2.2 L (3.4-5.0) g/dl Globulin 2.9 gm/dL Albumin/Globulin Ratio 0.8 L (1-2) Will Results Last 24 Hours: Microbiology 06/20/21 21:25 Blood Culture - Final Blood 06/20/21 21:30 Blood Culture - Final Blood Med Orders - Current: Current Medications Acetaminophen (Acetaminophen 325 Mg Tab) 650 mg PO BID BLAYNE Last Admin: 06/26/21 08:44 Dose: 650 mg Documented by: Hydrocodone Bitart/Acetaminophen (Acetaminophen/Hydrocodone 325-5 Mg Tab) 2 tab PO Q6H PRN PRN Reason: Pain Last Admin: 06/25/21 21:29 Dose: 2 tab Documented by: Albuterol/Ipratropium (Albuterol/Ipratropium 3.0-0.5 Mg/3 Ml Neb Soln) 3 ml NEB QIDRT [facility] Last Admin: 06/26/21 09:00 Dose: 3 ml Documented by: Artificial Tears (Carboxymethylcellulose Sodium 1% Ophth Gel 15 Ml Bottle) 0 ml EYEBOTH QID [facility] Last Admin: 06/26/21 13:42 Dose: 1 drop Documented by: Benzonatate (Benzonatate 100 Mg Cap) 100 mg PO BID PRN PRN Reason: Cough Calcium Carbonate (Calcium Carbonate/Vitamin D3 600 Mg-200 Units Tab) 1 tab PO BID [facility] Last Admin: 06/26/21 08:44 Dose: 1 tab Documented by: Cyanocobalamin (Cyanocobalamin (Vitamin B12) 1,000 Mcg Tab) 1,000 mcg PO DAILY [facility] Last Admin: 06/26/21 08:44 Dose: 1,000 mcg Documented by: Diclofenac Sodium (Diclofenac Sodium 1% Gel 100 Gm Tube) 1 gm TOP BID [facility] Last Admin: 06/26/21 08:45 Dose: 1 applic Documented by: Fentanyl (Fentanyl 12 Mcg/Hr Transdermal Patch) 12 mcg TRDERM Q72H [facility] Last Admin: 06/24/21 10:46 Dose: 12 mcg Documented by: Fluticasone Propionate (Fluticasone Propionate Nasal [place] 16 Gm Bottle) 0 gm NASBOTH DAILY [facility] Last Admin: 06/26/21 08:45 Dose: 1 spray Documented by: Heparin Sodium (Porcine) (Heparin Sodium 5,000 Units/Ml Vial) 5,000 units SUBCUT Q8H [facility] Last Admin: 06/26/21 08:44 Dose: 5,000 units Documented by: Levothyroxine Sodium (Levothyroxine 125 Mcg Tab) 125 mcg PO DAILY@0700 [facility] Last Admin: 06/26/21 06:06 Dose: Not Given Documented by: Lidocaine (Lidocaine 4% 1 Each Patch) 1 each TOP Q24H [facility] Last Admin: 06/26/21 09:36 Dose: 1 each Documented by: Melatonin (Melatonin 3 Mg Tab) 6 mg PO BEDTIME PRN PRN Reason: Sleep Last Admin: 06/25/21 21:29 Dose: 6 mg Documented by: Meloxicam (Meloxicam 7.5 Mg Tab) 15 mg PO DAILY [facility] Last Admin: 06/26/21 08:44 Dose: 15 mg Documented by: Mirtazapine (Mirtazapine 15 Mg Tab) 15 mg PO BEDTIME [facility] Last Admin: 06/25/21 21:29 Dose: 15 mg Documented by: Miscellaneous Information (Remove Lidocaine 4% Patch) 1 ea TOP Q24H [facility] Last Admin: 06/25/21 22:16 Dose: Not Given Documented by: Miscellaneous Information (Remove And Replace Fentanyl Patch) 1 ea TRDERM Q72H [facility] Ondansetron HCl (Ondansetron 4 Mg/2 Ml Sdv) 4 mg IV Q4H PRN PRN Reason: Nausea/Vomiting Quetiapine Fumarate (Quetiapine 25 Mg Tab) 25 mg PO BEDTIME [facility] Tiotropium [place] (Tiotropium [place] 4 Gm Inhalation [place] (2.5mcg/1 Dose; 10 Doses)) 0 gm INH DAILY [facility] Last Admin: 06/26/21 09:00 Dose: 2 inhalation Documented by: Discontinued Medications Albuterol/Ipratropium (Albuterol/Ipratropium 3.0-0.5 Mg/3 Ml Neb Soln) 3 ml NEB QID [facility] Aspirin (Aspirin 81 Mg Tab.Chew) 324 mg PO ONETIME ONE Stop: 06/20/21 20:29 Last Admin: 06/20/21 21:24 Dose: 324 mg Documented by: Azithromycin (Azithromycin 250 Mg Tab) 500 mg PO ONETIME ONE Stop: 06/20/21 20:27 Last Admin: 06/20/21 21:25 Dose: 500 mg Documented by: Azithromycin (Azithromycin 250 Mg Tab) 500 mg PO DAILY [facility] Last Admin: 06/21/21 20:44 Dose: 500 mg Documented by: Bupivacaine HCl (Bupivacaine 0.5% 10 Ml Sdv) 10 ml INJECT ONETIME ONE Stop: 06/24/21 17:49 Last Admin: 06/24/21 19:20 Dose: Not Given Documented by: Cefdinir (Cefdinir 300 Mg Cap) 300 mg PO ONETIME ONE Stop: 06/20/21 20:24 Last Admin: 06/20/21 21:25 Dose: 300 mg Documented by: Cefdinir (Cefdinir 300 Mg Cap) 300 mg PO BID [facility] Last Admin: 06/21/21 20:46 Dose: 300 mg Documented by: Furosemide (Furosemide 40 Mg/4 Ml Vial) 40 mg IVPUSH NOW ONE Stop: 06/20/21 20:24 Last Admin: 06/20/21 21:37 Dose: 40 mg Documented by: Furosemide (Furosemide 40 Mg Tab) 40 mg PO BID [facility] Last Admin: 06/21/21 08:57 Dose: 40 mg Documented by: Sodium Chloride (Normal Saline) 1,000 mls @ 500 mls/hr IV ONETIME ONE Stop: 06/20/21 20:28 Last Infusion: 06/20/21 19:00 Dose: 100 mls/hr Documented by: Sodium Chloride (Normal Saline) 45 mls @ 40 mls/hr IV ASDIRECTED [facility] Last Admin: 06/20/21 19:42 Dose: 40 mls/hr Documented by: Sodium Chloride (Normal Saline) 1,000 mls @ 75 mls/hr IV ASDIRECTED [facility] Last Admin: 06/21/21 02:37 Dose: 75 mls/hr Documented by: Lactated Ringer's (Ringers, Lactated) 250 mls @ 250 mls/hr IV ASDIRECTED [facility] Last Admin: 06/21/21 13:51 Dose: 250 mls/hr Documented by: Lactated Ringer's (Ringers, Lactated) 250 mls @ 125 mls/hr IV ASDIRECTED [facility] Last Admin: 06/21/21 17:30 Dose: 125 mls/hr Documented by: Lactated Ringer's (Ringers, Lactated) 500 mls @ 250 mls/hr IV BOLUS ONE Stop: 06/21/21 21:59 Last Admin: 06/21/21 21:14 Dose: 250 mls/hr Documented by: Piperacillin Sod/Tazobactam (Sod 4.5 gm/ Sodium Chloride) 100 mls @ 200 mls/hr IV ONETIME ONE Stop: 06/21/21 20:59 Last Admin: 06/21/21 20:41 Dose: 200 mls/hr Documented by: Piperacillin Sod/Tazobactam (Sod 4.5 gm/ Sodium Chloride) 100 mls @ 25 mls/hr IV Q8H [facility] Last Admin: 06/23/21 09:36 Dose: Not Given Documented by: Vancomycin HCl 1 gm/ Sodium (Chloride) 250 mls @ 250 mls/hr IV Q24H [facility] Last Admin: 06/21/21 21:15 Dose: 250 mls/hr Documented by: Iopamidol (Iopamidol 755 Mg/Ml 100 Ml Bottle) 100 ml IVPUSH ONETIME ONE Stop: 06/20/21 18:43 Last Admin: 06/20/21 19:42 Dose: 100 ml Documented by: Labetalol HCl (Labetalol 100 Mg Tab) 100 mg PO ONETIME ONE Stop: 06/20/21 20:29 Last Admin: 06/20/21 23:32 Dose: Not Given Documented by: Labetalol HCl (Labetalol 100 Mg TabPt Own) 100 mg PO ONETIME ONE Stop: 06/20/21 23:31 Last Admin: 06/20/21 23:33 Dose: 100 mg Documented by: Labetalol HCl (Labetalol 100 Mg Tab) 100 mg PO BID [facility] Last Admin: 06/21/21 08:56 Dose: 100 mg Documented by: Labetalol HCl (Labetalol 100 Mg Tab) 100 mg PO BID [facility] Levothyroxine Sodium (Levothyroxine 125 Mcg Tab) 125 mcg PO DAILY [facility] Last Admin: 06/21/21 08:58 Dose: 125 mcg Documented by: Mirtazapine (Mirtazapine 15 Mg Tab) 15 mg PO BEDTIME [facility] Last Admin: 06/21/21 21:23 Dose: 15 mg Documented by: Trazodone 150 Mg (Tablet - Pt Own Med) 0 mg PO BEDTIME [facility] Last Admin: 06/21/21 21:25 Dose: 225 mg Documented by: Prednisone (Prednisone 20 Mg Tab) 60 mg PO ONETIME ONE Stop: 06/20/21 20:24 Last Admin: 06/20/21 21:31 Dose: 60 mg Documented by: Prednisone (Prednisone 20 Mg Tab) Confirm Administered Dose 20 mg .ROUTE .STK- MED ONE Stop: 06/20/21 21:29 Last Admin: 06/20/21 23:00 Dose: Not Given Documented by: Prednisone (Prednisone 20 Mg Tab) 40 mg PO WITHBREAKFAST [facility] Last Admin: 06/23/21 06:18 Dose: 40 mg Documented by: Quetiapine Fumarate (Quetiapine 25 Mg Tab) 12.5 mg PO BEDTIME [facility] Last Admin: 06/24/21 20:10 Dose: 12.5 mg Documented by: Quetiapine Fumarate (Quetiapine 25 Mg Tab) 12.5 mg PO BID [facility] Last Admin: 06/25/21 10:04 Dose: Not Given Documented by: Quetiapine Fumarate (Quetiapine 25 Mg Tab) 25 mg PO ONETIME ONE Stop: 06/25/21 15:27 Last Admin: 06/25/21 15:34 Dose: 25 mg Documented by: Sodium Chloride (Sodium Chloride 0.9% 10 Ml Syringe) 10 ml FLUSH ASDIRECTED PRN PRN Reason: Keep Vein Open Sodium Chloride (Sodium Chloride 0.9% 10 Ml Syringe) 10 ml FLUSH ONETIME PRN PRN Reason: Keep Vein Open Last Admin: 06/20/21 19:42 Dose: 10 ml Documented by: Spironolactone (Spironolactone 25 Mg Tab) 25 mg PO DAILY [facility] Last Admin: 06/21/21 08:57 Dose: 25 mg Documented by: Trazodone HCl (Trazodone 50 Mg Tab) 225 mg PO BEDTIME [facility] Last Admin: 06/22/21 20:31 Dose: 225 mg Documented by: Triamcinolone Acetonide (Triamcinolone Acetonide 40 Mg/Ml 1 Ml Sdv) 40 mg INJECT ONETIME ONE Stop: 06/24/21 17:40 Last Admin: 06/24/21 19:19 Dose: Not Given Documented by: Vancomycin HCl (Pharmacy To Dose - Vancomycin) 1 dose .XX ASDIRECTED [facility]NE - Exam General: Alert, Oriented, Cooperative, No Acute Distress Neck: Supple Lungs: Clear to Auscultation, Normal Respiratory Effort Cardiovascular: Regular Rate, Regular Rhythm GI/Abdominal Exam: Normal Bowel Sounds, Soft, Non-Tender (Male) Exam: Deferred Back Exam: Vertebral Tenderness (T11-L4 upon palpation), Other (tenderness over R gluteal bursa) Extremities: Normal Inspection, Normal Range of Motion, No Pedal Edema Skin: Warm, Dry, Intact Neurological: No New Focal Deficit Psy/Mental Status: Alert, Normal Affect, Normal Mood - Patient Data Lab Results Last 24 hrs: Laboratory Results - last 24 hr 06/26/21 06/26/21 Range/Units 05:31 05:31 WBC 4.58 (4.23-9.07) K/mm3 RBC 3.68 L (4.63-6.08) M/mm3 Hgb 11.7 L (13.7-17.5) gm/dl Hct 36.3 L (40.1-51.0) % MCV 98.6 H (79.0-92.2) fl MCH 31.8 (25.7-32.2) pg MCHC 32.2 (32.2-35.5) g/dl RDW Std Deviation 51.2 H (35.1-43.9) fL Plt Count 126 L (163-337) K/mm3 MPV 9.0 L (9.4-12.3) fl Neut % (Auto) 59.0 (34.0-67.9) % Lymph % (Auto) 26.0 (21.8-53.1) % Wells % (Auto) 10.3 (5.3-12.2) % Eos % (Auto) 3.1 (0.8-7.0) Baso % (Auto) 0.7 (0.1-1.2) % Neut # (Auto) 2.71 (1.78-5.38) K/mm3 Lymph # (Auto) 1.19 L (1.32-3.57) K/mm3 Wells # (Auto) 0.47 (0.30-0.82) K/mm3 Eos # (Auto) 0.14 (0.04-0.54) K/mm3 Baso # (Auto) 0.03 (0.01-0.08) K/mm3 Sodium 142 (136-145) mEq/L Potassium 4.3 (3.5-5.1) mEq/L Chloride 108 H (98-107) mEq/L Carbon Dioxide 27 (21-32) mEq/L Anion Gap 11.3 (5-15) BUN 17 (7-18) mg/dL Creatinine 1.2 (0.7-1.3) mg/dL Est Cr Clr Drug Dosing 46.77 mL/min Estimated GFR (MDRD) 58 (>60) mL/min BUN/Creatinine Ratio 14.2 (14-18) Glucose 77 (70-99) mg/dL Calcium 8.7 (8.5-10.1) mg/dL Magnesium 1.8 (1.8-2.4) mg/dL Total Bilirubin 0.4 (0.2-1.0) mg/dL AST 28 (15-37) U/L ALT 46 (16-63) U/L Alkaline Phosphatase 84 (46-116) U/L Total Protein 5.1 L (6.4-8.2) g/dl Albumin 2.2 L (3.4-5.0) g/dl Globulin 2.9 gm/dL Albumin/Globulin Ratio 0.8 L (1-2) Result Diagrams: 06/26/21 05:31 06/26/21 05:31 Will Results Last 24 hrs: Microbiology 06/20/21 21:25 Blood Culture - Final Blood 06/20/21 21:30 Blood Culture - Final Blood Sepsis Event Note - Evaluation Sepsis Screening Result: No Definite Risk - Focused Exam Vital Signs: Vital Signs Temp Pulse Resp BP Pulse Ox Pulse Ox 06/26/21 13:19 97.2 F 78 20 126/75 99 06/26/21 09:00 99 06/26/21 08:50 97.2 F 71 20 114/77 99 06/26/21 06:00 95 06/26/21 05:34 97.3 F 78 18 121/79 99 - Problem List & Annotations (1) COPD exacerbation SNOMED Code(s): 989357422 Code(s): J44.1 - CHRONIC OBSTRUCTIVE PULMONARY DISEASE W (ACUTE) EXACERBATION Status: Acute Priority: Medium Current Visit: Yes Onset Date: ~06/21/21 Annotation/Comment:: stable (2) Compression fracture of L2 lumbar vertebra SNOMED Code(s): 18526696888863815 Code(s): S32.020A - WEDGE COMPRESSION FRACTURE OF SECOND LUMBAR VERTEBRA, INIT Status: Acute Priority: High Current Visit: No Onset Date: 01/19/16 Qualifiers: Encounter type: initial encounter Qualified Code(s): S32.020A - Wedge compression fracture of second lumbar vertebra, initial encounter for closed fracture Annotation/Comment:: - S/p Fall - Vitamin D level: normal - Mod-Severe L2 Compression Fx: Chronic vs Sub Acute on MRI - Fentanyl patch and oxycodone prn meds - Lumbar support - Seen and evaluated by Ortho - Follow up Ortho in 1 week -treating insomnia and helping somewhat for back pain (3) Alcohol abuse SNOMED Code(s): 70109043 Code(s): F10.10 - ALCOHOL ABUSE, UNCOMPLICATED Status: Chronic Priority: High Current Visit: No Onset Date: 02/19/16 Annotation/Comment:: - Chronic Alcoholic - Counseled on ETOH Abuse - Offered help; refused - Was on CIWA protocol -mood swings without def features of korsikoffs or werneiches syndrome but anger episodes lifelong. - Problem List Review Problem List Initiated/Reviewed/Updated: Yes - Plan Plan:: This is a 81M presenting for evaluation of sob, cough and hypoxia. In the ED he was hypoxic and requiring supplemental oxygen. CXR showed no clear infiltrate. CT PE negative for PE, right pleural effusion; right lung 4.2 cm mass. He was noted to have elevated WBC. In the ED he was started on prednisone, antibiotics, duonebs and admitted for further evaluation. Per daughter he has had progressive decline over the last few months. Pt antibiotics broadened on 06/21 due to lactic acidosis and hypotension 1. suspected PNA vs COPD exacerbation -->procal 0.11 -changed to vanco+zosyn on 06/21 -dc zosyn 2. Right pleural effusion 3. Right lung mass 4.2 cm 4. Hyperkalemia 5. Chronic kidney disease 6. Suspected adult failure to thrive 7. Hx of HTN 8. Hx of hypothyroidism 9. Hyponatremia 10. Mildly elevated troponin in context of CKD; denied chest pain 11. lactic acidosis; resolved 12. Concern for aspiration 13. Hx of insomnia 14. Hospital acquired delirium Plan -monitor off antibiotics; stop prednisone may be contributing to delirium -PT, OT, DOG [employer]IPPER consult -SW consult; -continue synthroid -hold antihypertensives for now -recheck procal in AM -outpatient video swallow evaluation -aspiration precautions -stop trazadone 06/23 -start scheduled seroquel 12.5 mg qhs 06/23 -overall poor prognosis; daughter had some questions about comfort care; continue to discuss overall goals of care code-DNR/DNi DVT ppx-heparin subq Dispo-DC to Short term rehab once delirium controlled 06/24/2021 Assessment: KUNAL is an 81yo male presenting for evaluation of sob, cough and hypoxia which was treated with prednisone, vanco/zosyn, and duonebs. Today he complains of back pain with tenderness over the right SI joint. Daughter notes a progressive decline over the last few months with increased complaints about decreasing quality of life. 1. Hx of vertebral compression fx of T11-T12, L2 end plate compression 2. Sacroiliitis right SI joint, right gluteal bursitis 3. Hx of dysphagia 4. Agitation 5. Hx of insomnia 6. Hx of alcoholism Plan: - CT chest and abdomen - Fentanyl patch on T11-L2 - Lidocaine patch on T11-L2 - upper outer quadrant of right gluteus pool injection of lidoc peyton/glucocorticoid - outpatient video swallow evaluation - continue diet of soft foods as tolerated - continue quetiapine 12.5 mg qhs - continue to monitor for signs of withdrawal 06/25/21 afebrile vss// room air. back pain severe would like injection now refused x 2 prev. hurts wh en he moves but did not sit in chair today per preference. refused labs and ate well for lunch. drinking fluids fair. memory still present for yesterdays conversations. mood improved currently but has been very angry to all staff since last night . increased quintapine. to 25 mg day. p.e. unchanged. -comfort measures discussed with daughter who agrees. d-iscussed ct scan refused and will not force him to do this. - assess: etoh abuse chronic with mixed features of mood swings and forgetfulness. no acute withdrawal today . -dementia features. -chronic back pain likely compression fracture of thorasic and lumbar spine. djd as well and spondylolisthesis not ruled out but chronic and s- -subacute responding to pain patch and quintapine. meloxicam helping but he refuses it sometimes. -n.h placment being arranged for assistance and dementia concerns. -chronic etohism avoiding etoh for now address when he returns to [facility] 06/26/2021 Assessment: 1. Hx of vertebral compression fx of T11-12, L2 end plate compression 2. Sacroilitis right SI joint, right gluteal bursitis 3. Hx of alcoholism, agitation - mood has improved 4. Hx of dysphagia 5. Hx of COPD Plan: 1. attempt CT of abdomen/pelvis to assess vertebrae 2. lidocaine/glucocorticoid injection of R gluteal bursa 3. continue using fentanyl and lidocaine patches as tolerated for back pain 4. continue quetiapine for agitation and insomnia 5. continue current pulm regimen for COPD 6. plan to d/c to LTC 06/27/2021 at guidance of daughter
[2021-06-26] MEDS ORDERED: Triamcinolone Acetonide 40 MG/ML 1 ML SDV INJECT ONE (15:26)
[2021-06-26] MEDS ORDERED: Bupivacaine 0.5% 10 ML SDV INJECT ONE (15:26)
--- NOTE | 2021-06-26 16:41 | PCM.PRNOTE ---
- Free Text/Narrative Note: Procedure: right gluteal bursa injection 06/26/2021 16:00 Performed by: Victorina Heath MS3 Attending: Dr. Himanshu Underwood Consent: Risks (bleeding, infection, and damage to surrounding structures), benefits, and alternatives to the procedure were discussed with the patient and his daughter. Patient provided verbal informed consent and daughter provided verbal and written informed consent to the procedure. Procedure: Patient was positioned in the left lateral decubitus position. Time out was performed by nursing. Region of right buttocks was exposed and prepped in a sterile fashion. Region was anesthetized using ethyl chloride spray. Syringe containing 8mL bupivacaine 0.5% and 1mL/40mg triamcinolone was prepared and injected into right buttocks 4cm inferior to iliac crest, midway between posterior superior and anterior superior iliac spines. No bleeding was observed. Injection site covered with bandage. Patient noted no numbness, tingling, weakness of right leg during or after procedure. Nursing and patient were provided with post-procedure instructions.
--- NOTE | 2021-06-26 18:51 | CT ---
CT lumbar spine Technique: Multiple axial sections were obtained from above the T11-12 disc inferiorly through the L5-S1 disc. Reconstructed coronal and sagittal images were obtained. Comparison: Prior plain film lumbar spine study of 04/03/16 and prior MRI lumbar spine study of 02/21/16. Findings: T11-12: Disc space narrowing is seen. Posterior disc is preserved. No central canal stenosis is seen. Neural foramina are felt to be fairly well patent. Neural foramina are not completely visualized. T12-L1: Posterior disc space narrowing is seen. Posteriorly the disc is preserved. Endplate osteophytes are seen. Mild degenerative apophyseal change is noted. No central canal stenosis is seen. Neural foramina are patent. L1-2: Posterior disc space narrowing is seen. Slight vacuum disc phenomena is noted. Posterior disc shows minimal bulge. No central canal stenosis is seen. Neural foramina are felt to be fairly well patent. L2-3: Severe disc space narrowing is noted with vacuum phenomena. Diffuse circumferential disc bulge is present. Posterior disc shows calcification. Fairly severe degenerative apophyseal change is seen with thickening of the ligamentum flavum. Findings cause moderate central canal stenosis. This has progressed from previous exam. Bilateral neural foraminal stenosis is seen. There is moderate compression deformity of L2 being seen. This has progressed from previous exam. L3-4: Very slight posterior disc space narrowing is seen. Posterior disc has a planar margin. Fairly severe degenerative apophyseal change is noted. Mild central canal stenosis is seen. Bilateral neural foraminal stenosis is noted. L4-5: Severe disc space narrowing is seen. No central canal stenosis is seen. Bilateral neural foraminal stenosis is noted. Moderate degenerative apophyseal change is seen. L5-S1: Mild diffuse disc space narrowing is seen. Mild posterior disc bulge is noted. There is spurring being seen on the left side into the neural foramina. This causes left-sided neural foraminal stenosis. Right neural foramina is fairly patent. Impression: 1. Diffuse degenerative change as noted above which has progressed from previous exams. Levels of central canal stenosis and neural foraminal stenosis is seen as noted above. 2. Moderate compression deformity of L2 which has progressed from previous exams. Diagnostic code #3
[2021-06-26] MEDS: Mirtazapine 15 MG Tab PO SCH (21:24)
[2021-06-26] MEDS: QUEtiapine 25 MG Tab PO SCH (21:24)
[2021-06-27] MEDS: Heparin Sodium 5,000 Units/ML Vial SUBCUT SCH ×3 (01:55→16:14)
[2021-06-27] MEDS: Albuterol/Ipratropium 3.0-0.5 MG/3 ML Neb Soln NEB SCH ×4 (05:54→20:13)
[2021-06-27] MEDS: Levothyroxine 125 MCG Tab PO SCH (07:01)
[2021-06-27] MEDS ORDERED: Sodium Chloride 0.9% 500 ML IV ONE (08:54)
[2021-06-27] MEDS: Tiotropium Bromide 4 GM Inhalation Spray (2.5mcg/1 dose; 10 doses) INH SCH (09:00)
[2021-06-27] MEDS: Cyanocobalamin (Vitamin B12) 1,000 MCG Tab PO SCH (09:17)
[2021-06-27] MEDS: Calcium Carbonate/Vitamin D3 600 MG-200 Units Tab PO SCH ×2 (09:17→20:07)
[2021-06-27] MEDS: Meloxicam 7.5 MG Tab PO SCH (09:18)
[2021-06-27] MEDS: Acetaminophen 325 MG Tab PO SCH ×2 (09:18→20:07)
[2021-06-27] MEDS: Carboxymethylcellulose Sodium 1% Ophth Gel 15 ML Bottle EYEBOTH SCH ×4 (09:18→20:07)
[2021-06-27] MEDS: Fluticasone Propionate Nasal Spray 16 GM Bottle NASBOTH SCH (09:18)
[2021-06-27] MEDS: Diclofenac Sodium 1% Gel 100 GM Tube TOP SCH ×2 (09:19→20:06)
[2021-06-27] MEDS: fentaNYL 12 MCG/HR Transdermal Patch TRDERM SCH (09:31)
[2021-06-27] MEDS: Lidocaine 4% 1 each Patch TOP SCH (09:31)
[2021-06-27] MEDS ORDERED: Furosemide 20 MG/2 ML VIAL IVPUSH ONE (10:00)
[2021-06-27] MEDS ORDERED: [UNRECOGNIZED DRUG - REMARK] TRDERM SCH (10:30)
--- NOTE | 2021-06-27 12:38 | PCM.PN ---
- General Info Date of Service: 06/27/21 Admission Dx/Problem (Free Text): Admission Diagnosis/Problem Admission Diagnosis/Problem Chronic obstructive pulmonary disease Subjective Update: overnight events reviewed noted to be hyperkalemic this morning potassium 5.4 started on IVF and lasix patient very hard of hearing - Review of Systems General: Reports: Weakness Pulmonary: Reports: No Symptoms Cardiovascular: Reports: No Symptoms Gastrointestinal: Reports: No Symptoms Musculoskeletal: Reports: Joint Pain - Patient Data Vitals - Most Recent: Last Vital Signs Temp 97.2 F 06/27/21 07:59 Pulse 82 06/27/21 07:59 Resp 16 06/27/21 07:59 BP 117/77 06/27/21 07:59 Pulse Ox 95 06/27/21 09:00 Weight - Most Recent: 158 lb 8 oz I&O - Last 24 Hours: Intake & Output 06/26/21 06/27/21 06/27/21 22:59 06:59 14:59 Intake Total 1670 300 410 Balance 1670 300 410 Lab Results Last 24 Hours: Laboratory Results - last 24 hr 06/27/21 06/27/21 Range/Units 05:57 05:57 WBC 6.08 (4.23-9.07) K/mm3 RBC 3.67 L (4.63-6.08) M/mm3 Hgb 11.7 L (13.7-17.5) gm/dl Hct 36.4 L (40.1-51.0) % MCV 99.2 H (79.0-92.2) fl MCH 31.9 (25.7-32.2) pg MCHC 32.1 L (32.2-35.5) g/dl RDW Std Deviation 51.2 H (35.1-43.9) fL Plt Count 144 L (163-337) K/mm3 MPV 9.3 L (9.4-12.3) fl Neut % (Auto) 74.9 H (34.0-67.9) % Lymph % (Auto) 14.8 L (21.8-53.1) % [place] % (Auto) 8.1 (5.3-12.2) % Eos % (Auto) 1.5 (0.8-7.0) Baso % (Auto) 0.2 (0.1-1.2) % Neut # (Auto) 4.56 (1.78-5.38) K/mm3 Lymph # (Auto) 0.90 L (1.32-3.57) K/mm3 [place] # (Auto) 0.49 (0.30-0.82) K/mm3 Eos # (Auto) 0.09 (0.04-0.54) K/mm3 Baso # (Auto) 0.01 (0.01-0.08) K/mm3 Sodium 139 (136-145) mEq/L Potassium 5.4 H (3.5-5.1) mEq/L Chloride 105 (98-107) mEq/L Carbon Dioxide 28 (21-32) mEq/L Anion Gap 11.4 (5-15) BUN 16 (7-18) mg/dL Creatinine 1.1 (0.7-1.3) mg/dL Est Cr Clr Drug Dosing 51.74 mL/min Estimated GFR (MDRD) > 60 (>60) mL/min BUN/Creatinine Ratio 14.5 (14-18) Glucose 87 (70-99) mg/dL Calcium 8.1 L (8.5-10.1) mg/dL Magnesium 1.8 (1.8-2.4) mg/dL Total Bilirubin 0.4 (0.2-1.0) mg/dL AST 30 (15-37) U/L ALT 47 (16-63) U/L Alkaline Phosphatase 101 (46-116) U/L Total Protein 5.2 L (6.4-8.2) g/dl Albumin 2.2 L (3.4-5.0) g/dl Globulin 3.0 gm/dL Albumin/Globulin Ratio 0.7 L (1-2) Will Results Last 24 Hours: Microbiology 06/20/21 21:25 Blood Culture - Final Blood 06/20/21 21:30 Blood Culture - Final Blood Med Orders - Current: Current Medications Acetaminophen (Acetaminophen 325 Mg Tab) 650 mg PO BID [facility] Last Admin: 06/27/21 09:18 Dose: 650 mg Documented by: Hydrocodone Bitart/Acetaminophen (Acetaminophen/Hydrocodone 325-5 Mg Tab) 2 tab PO Q6H PRN PRN Reason: Pain Last Admin: 06/25/21 21:29 Dose: 2 tab Documented by: Albuterol/Ipratropium (Albuterol/Ipratropium 3.0-0.5 Mg/3 Ml Neb Soln) 3 ml NEB QIDRT [facility] Last Admin: 06/27/21 09:00 Dose: 3 ml Documented by: Artificial Tears (Carboxymethylcellulose Sodium 1% Ophth Gel 15 Ml Bottle) 0 ml EYEBOTH QID [facility] Last Admin: 06/27/21 09:18 Dose: 1 drop Documented by: Benzonatate (Benzonatate 100 Mg Cap) 100 mg PO BID PRN PRN Reason: Cough Calcium Carbonate (Calcium Carbonate/Vitamin D3 600 Mg-200 Units Tab) 1 tab PO BID [facility] Last Admin: 06/27/21 09:17 Dose: 1 tab Documented by: Cyanocobalamin (Cyanocobalamin (Vitamin B12) 1,000 Mcg Tab) 1,000 mcg PO DAILY [facility] Last Admin: 06/27/21 09:17 Dose: 1,000 mcg Documented by: Diclofenac Sodium (Diclofenac Sodium 1% Gel 100 Gm Tube) 1 gm TOP BID [facility] Last Admin: 06/27/21 09:19 Dose: 1 applic Documented by: Fentanyl (Fentanyl 12 Mcg/Hr Transdermal Patch) 12 mcg TRDERM Q72H [facility] Last Admin: 06/27/21 09:31 Dose: 12 mcg Documented by: Fluticasone Propionate (Fluticasone Propionate Nasal [place] 16 Gm Bottle) 0 gm NASBOTH DAILY [facility] Last Admin: 06/27/21 09:18 Dose: 1 spray Documented by: Heparin Sodium (Porcine) (Heparin Sodium 5,000 Units/Ml Vial) 5,000 units SUBCUT Q8H [facility] Last Admin: 06/27/21 09:17 Dose: Not Given Documented by: Levothyroxine Sodium (Levothyroxine 125 Mcg Tab) 125 mcg PO DAILY@0700 [facility] Last Admin: 06/27/21 07:01 Dose: 125 mcg Documented by: Lidocaine (Lidocaine 4% 1 Each Patch) 1 each TOP Q24H [facility] Last Admin: 06/27/21 09:31 Dose: 1 each Documented by: Melatonin (Melatonin 3 Mg Tab) 6 mg PO BEDTIME PRN PRN Reason: Sleep Last Admin: 06/25/21 21:29 Dose: 6 mg Documented by: Meloxicam (Meloxicam 7.5 Mg Tab) 15 mg PO DAILY [facility] Last Admin: 06/27/21 09:18 Dose: 15 mg Documented by: Mirtazapine (Mirtazapine 15 Mg Tab) 15 mg PO BEDTIME [facility] Last Admin: 06/26/21 21:24 Dose: 15 mg Documented by: Miscellaneous Information (Remove Lidocaine 4% Patch) 1 ea TOP Q24H [facility] Last Admin: 06/26/21 21:51 Dose: 1 ea Documented by: Miscellaneous Information (Remove And Replace Fentanyl Patch) 1 ea TRDERM Q72H [facility] Last Admin: 06/27/21 09:32 Dose: 1 ea Documented by: Ondansetron HCl (Ondansetron 4 Mg/2 Ml Sdv) 4 mg IV Q4H PRN PRN Reason: Nausea/Vomiting Quetiapine Fumarate (Quetiapine 25 Mg Tab) 25 mg PO BEDTIME [facility] Last Admin: 06/26/21 21:24 Dose: 25 mg Documented by: Tiotropium [place] (Tiotropium [place] 4 Gm Inhalation [place] (2.5mcg/1 Dose; 10 Doses)) 0 gm INH DAILY [facility] Last Admin: 06/27/21 09:00 Dose: 2 inhalation Documented by: Discontinued Medications Albuterol/Ipratropium (Albuterol/Ipratropium 3.0-0.5 Mg/3 Ml Neb Soln) 3 ml NEB QID [facility] Aspirin (Aspirin 81 Mg Tab.Chew) 324 mg PO ONETIME ONE Stop: 06/20/21 20:29 Last Admin: 06/20/21 21:24 Dose: 324 mg Documented by: Azithromycin (Azithromycin 250 Mg Tab) 500 mg PO ONETIME ONE Stop: 06/20/21 20:27 Last Admin: 06/20/21 21:25 Dose: 500 mg Documented by: Azithromycin (Azithromycin 250 Mg Tab) 500 mg PO DAILY [facility] Last Admin: 06/21/21 20:44 Dose: 500 mg Documented by: Bupivacaine HCl (Bupivacaine 0.5% 10 Ml Sdv) 10 ml INJECT ONETIME ONE Stop: 06/24/21 17:49 Last Admin: 06/24/21 19:20 Dose: Not Given Documented by: Bupivacaine HCl (Bupivacaine 0.5% 10 Ml Sdv) 10 ml INJECT ONETIME ONE Stop: 06/26/21 15:27 Last Admin: 06/26/21 16:00 Dose: 10 ml Documented by: Cefdinir (Cefdinir 300 Mg Cap) 300 mg PO ONETIME ONE Stop: 06/20/21 20:24 Last Admin: 06/20/21 21:25 Dose: 300 mg Documented by: Cefdinir (Cefdinir 300 Mg Cap) 300 mg PO BID [facility] Last Admin: 06/21/21 20:46 Dose: 300 mg Documented by: Furosemide (Furosemide 40 Mg/4 Ml Vial) 40 mg IVPUSH NOW ONE Stop: 06/20/21 20:24 Last Admin: 06/20/21 21:37 Dose: 40 mg Documented by: Furosemide (Furosemide 40 Mg Tab) 40 mg PO BID [facility] Last Admin: 06/21/21 08:57 Dose: 40 mg Documented by: Furosemide (Furosemide 20 Mg/2 Ml Vial) 20 mg IVPUSH ONETIME ONE Stop: 06/27/21 10:01 Last Admin: 06/27/21 09:19 Dose: 20 mg Documented by: Sodium Chloride (Normal Saline) 1,000 mls @ 500 mls/hr IV ONETIME ONE Stop: 06/20/21 20:28 Last Infusion: 06/20/21 19:00 Dose: 100 mls/hr Documented by: Sodium Chloride (Normal Saline) 45 mls @ 40 mls/hr IV ASDIRECTED [facility] Last Admin: 06/20/21 19:42 Dose: 40 mls/hr Documented by: Sodium Chloride (Normal Saline) 1,000 mls @ 75 mls/hr IV ASDIRECTED [facility] Last Admin: 06/21/21 02:37 Dose: 75 mls/hr Documented by: Lactated Ringer's (Ringers, Lactated) 250 mls @ 250 [facility] Last Admin: 06/21/21 13:51 Dose: 250 mls/hr Documented by: Lactated Ringer's (Ringers, Lactated) 250 mls @ 125 mls/hr IV ASDIRECTED [facility] Last Admin: 06/21/21 17:30 Dose: 125 mls/hr Documented by: Lactated Ringer's (Ringers, Lactated) 500 mls @ 250 mls/hr IV BOLUS ONE Stop: 06/21/21 21:59 Last Admin: 06/21/21 21:14 Dose: 250 mls/hr Documented by: Piperacillin Sod/Tazobactam (Sod 4.5 gm/ Sodium Chloride) 100 mls @ 200 mls/hr IV ONETIME ONE Stop: 06/21/21 20:59 Last Admin: 06/21/21 20:41 Dose: 200 mls/hr Documented by: Piperacillin Sod/Tazobactam (Sod 4.5 gm/ Sodium Chloride) 100 mls @ 25 mls/hr IV Q8H [facility] Last Admin: 06/23/21 09:36 Dose: Not Given Documented by: Vancomycin HCl 1 gm/ Sodium (Chloride) 250 mls @ 250 mls/hr IV Q24H [facility] Last Admin: 06/21/21 21:15 Dose: 250 mls/hr Documented by: Sodium Chloride (Normal Saline) 500 mls @ 500 mls/hr IV .BOLUS ONE Stop: 06/27/21 09:53 Last Admin: 06/27/21 09:17 Dose: 500 mls/hr Documented by: Iopamidol (Iopamidol 755 Mg/Ml 100 Ml Bottle) 100 ml IVPUSH ONETIME ONE Stop: 06/20/21 18:43 Last Admin: 06/20/21 19:42 Dose: 100 ml Documented by: Labetalol HCl (Labetalol 100 Mg Tab) 100 mg PO ONETIME ONE Stop: 06/20/21 20:29 Last Admin: 06/20/21 23:32 Dose: Not Given Documented by: Labetalol HCl (Labetalol 100 Mg TabPt Own) 100 mg PO ONETIME ONE Stop: 06/20/21 23:31 Last Admin: 06/20/21 23:33 Dose: 100 mg Documented by: Labetalol HCl (Labetalol 100 Mg Tab) 100 mg PO BID [facility] Last Admin: 06/21/21 08:56 Dose: 100 mg Documented by: Labetalol HCl (Labetalol 100 Mg Tab) 100 mg PO BID [facility] Levothyroxine Sodium (Levothyroxine 125 Mcg Tab) 125 mcg PO DAILY [facility] Last Admin: 06/21/21 08:58 Dose: 125 mcg Documented by: Mirtazapine (Mirtazapine 15 Mg Tab) 15 mg PO BEDTIME [facility] Last Admin: 06/21/21 21:23 Dose: 15 mg Documented by: Trazodone 150 Mg (Tablet - Pt Own Med) 0 mg PO BEDTIME [facility] Last Admin: 06/21/21 21:25 Dose: 225 mg Documented by: Prednisone (Prednisone 20 Mg Tab) 60 mg PO ONETIME ONE Stop: 06/20/21 20:24 Last Admin: 06/20/21 21:31 Dose: 60 mg Documented by: Prednisone (Prednisone 20 Mg Tab) Confirm Administered Dose 20 mg .ROUTE .STK- MED ONE Stop: 06/20/21 21:29 Last Admin: 06/20/21 23:00 Dose: Not Given Documented by: Prednisone (Prednisone 20 Mg Tab) 40 mg PO WITHBREAKFAST [facility] Last Admin: 06/23/21 06:18 Dose: 40 mg Documented by: Quetiapine Fumarate (Quetiapine 25 Mg Tab) 12.5 mg PO BEDTIME [facility] Last Admin: 06/24/21 20:10 Dose: 12.5 mg Documented by: Quetiapine Fumarate (Quetiapine 25 Mg Tab) 12.5 mg PO BID [facility] Last Admin: 06/25/21 10:04 Dose: Not Given Documented by: Quetiapine Fumarate (Quetiapine 25 Mg Tab) 25 mg PO ONETIME ONE Stop: 06/25/21 15:27 Last Admin: 06/25/21 15:34 Dose: 25 mg Documented by: Sodium Chloride (Sodium Chloride 0.9% 10 Ml Syringe) 10 ml FLUSH ASDIRECTED PRN PRN Reason: Keep Vein Open Sodium Chloride (Sodium Chloride 0.9% 10 Ml Syringe) 10 ml FLUSH ONETIME PRN PRN Reason: Keep Vein Open Last Admin: 06/20/21 19:42 Dose: 10 ml Documented by: Spironolactone (Spironolactone 25 Mg Tab) 25 mg PO DAILY [facility] Last Admin: 06/21/21 08:57 Dose: 25 mg Documented by: Trazodone HCl (Trazodone 50 Mg Tab) 225 mg PO BEDTIME [facility] Last Admin: 06/22/21 20:31 Dose: 225 mg Documented by: Triamcinolone Acetonide (Triamcinolone Acetonide 40 Mg/Ml 1 Ml Sdv) 40 mg INJECT ONETIME ONE Stop: 06/24/21 17:40 Last Admin: 06/24/21 19:19 Dose: Not Given Documented by: Triamcinolone Acetonide (Triamcinolone Acetonide 40 Mg/Ml 1 Ml Sdv) 40 mg INJECT ONETIME ONE Stop: 06/26/21 15:27 Last Admin: 06/26/21 16:00 Dose: 40 mg Documented by: Vancomycin HCl (Pharmacy To Dose - Vancomycin) 1 dose .XX ASDIRECTED [facility] - Exam General: Alert HEENT: EOMI, Mucous Membr. Moist/[place] Neck: Supple Lungs: Clear to Auscultation, Normal Respiratory Effort Cardiovascular: Regular Rate, Regular Rhythm GI/Abdominal Exam: Soft, Non-Tender, No Distention Skin: Warm, Dry, Intact Neurological: No New Focal Deficit Psy/Mental Status: Normal Affect - Patient Data Lab Results Last 24 hrs: Laboratory Results - last 24 hr 06/27/21 06/27/21 Range/Units 05:57 05:57 WBC 6.08 (4.23-9.07) K/mm3 RBC 3.67 L (4.63-6.08) M/mm3 Hgb 11.7 L (13.7-17.5) gm/dl Hct 36.4 L (40.1-51.0) % MCV 99.2 H (79.0-92.2) fl MCH 31.9 (25.7-32.2) pg MCHC 32.1 L (32.2-35.5) g/dl RDW Std Deviation 51.2 H (35.1-43.9) fL Plt Count 144 L (163-337) K/mm3 MPV 9.3 L (9.4-12.3) fl Neut % (Auto) 74.9 H (34.0-67.9) % Lymph % (Auto) 14.8 L (21.8-53.1) % [place] % (Auto) 8.1 (5.3-12.2) % Eos % (Auto) 1.5 (0.8-7.0) Baso % (Auto) 0.2 (0.1-1.2) % Neut # (Auto) 4.56 (1.78-5.38) K/mm3 Lymph # (Auto) 0.90 L (1.32-3.57) K/mm3 [place] # (Auto) 0.49 (0.30-0.82) K/mm3 Eos # (Auto) 0.09 (0.04-0.54) K/mm3 Baso # (Auto) 0.01 (0.01-0.08) K/mm3 Sodium 139 (136-145) mEq/L Potassium 5.4 H (3.5-5.1) mEq/L Chloride 105 (98-107) mEq/L Carbon Dioxide 28 (21-32) mEq/L Anion Gap 11.4 (5-15) BUN 16 (7-18) mg/dL Creatinine 1.1 (0.7-1.3) mg/dL Est Cr Clr Drug Dosing 51.74 mL/min Estimated GFR (MDRD) > 60 (>60) mL/min BUN/Creatinine Ratio 14.5 (14-18) Glucose 87 (70-99) mg/dL Calcium 8.1 L (8.5-10.1) mg/dL Magnesium 1.8 (1.8-2.4) mg/dL Total Bilirubin 0.4 (0.2-1.0) mg/dL AST 30 (15-37) U/L ALT 47 (16-63) U/L Alkaline Phosphatase 101 (46-116) U/L Total Protein 5.2 L (6.4-8.2) g/dl Albumin 2.2 L (3.4-5.0) g/dl Globulin 3.0 gm/dL Albumin/Globulin Ratio 0.7 L (1-2) Result Diagrams: 06/27/21 05:57 06/27/21 05:57 Wlil Results Last 24 hrs: Microbiology 06/20/21 21:25 Blood Culture - Final Blood 06/20/21 21:30 Blood Culture - Final Blood Sepsis Event Note - Evaluation Sepsis Screening Result: No Definite Risk - Focused Exam Vital Signs: Vital Signs Temp Pulse Resp BP Pulse Ox Pulse Ox 06/27/21 09:00 95 06/27/21 07:59 97.2 F 82 16 117/77 98 06/27/21 05:59 99 06/27/21 05:02 97.7 F 74 18 118/69 100 - Problem List Review Problem List Initiated/Reviewed/Updated: Yes - My Orders Last 24 Hours: My Active Orders 06/27/21 08:58 Ready for Discharge [RC] PER UNIT ROUTINE 06/27/21 15:00 POTASSIUM,K [CHEM] Routine - Plan Plan:: This is a 81M presenting for evaluation of sob, cough and hypoxia. In the ED he was hypoxic and requiring supplemental oxygen. CXR showed no clear infiltrate. CT PE negative for PE, right pleural effusion; right lung 4.2 cm mass. He was noted to have elevated WBC. In the ED he was started on prednisone, antibiotics, duonebs and admitted for further evaluation. Per daughter he has had progressive decline over the last few months. Pt antibiotics broadened on 06/21 due to lactic acidosis and hypotension 06/27/21 1. suspected PNA vs COPD exacerbation -->procal 0.11 -changed to vanco+zosyn on 06/21 -dc zosyn 2. Right pleural effusion 3. Right lung mass 4.2 cm 4. Hyperkalemia; potassium 5.4 today 5. Chronic kidney disease 6. Suspected adult failure to thrive 7. Hx of HTN 8. Hx of hypothyroidism 9. Hyponatremia 10. Mildly elevated troponin in context of CKD; denied chest pain 11. lactic acidosis; resolved 12. Concern for aspiration 13. Hx of insomnia 14. Hospital acquired delirium 15. Hx of vertebral compression fx of T11-T12, L2 end plate compression 16. Sacroiliitis right SI joint, right gluteal bursitis 17. Hx of dysphagia 18. hx of Alcoholism Plan -monitor off antibiotics; stop prednisone may be contributing to delirium -PT, OT, [employer] consult -SW consult; -continue synthroid -hold antihypertensives for now -recheck procal in AM -outpatient video swallow evaluation -aspiration precautions -stop trazadone 06/23 -continue scheduled seroquel started on 06/23 -IVF+ lasix+ repeat potassim today -overall poor prognosis; daughter had some questions about comfort care; continue to discuss overall goals of care code-DNR/DNi DVT ppx-heparin subq Dispo-DC to Short term rehab tomorrow once hyperkalemia resolved patient requiring greater than 96HR care due to hyperkalemia; unable to dc to SNF this afternoon due to pending labs 06/24/2021 Assessment: RF is an 81yo male presenting for evaluation of sob, cough and hypoxia which was treated with prednisone, vanco/zosyn, and duonebs. Today he complains of back pain with tenderness over the right SI joint. Daughter notes a progressive decline over the last few months with increased complaints about decreasing quality of life. 1. Hx of vertebral compression fx of T11-T12, L2 end plate compression 2. Sacroiliitis right SI joint, right gluteal bursitis 3. Hx of dysphagia 4. Agitation 5. Hx of insomnia 6. Hx of alcoholism Plan: - CT chest and abdomen - Fentanyl patch on T11-L2 - Lidocaine patch on T11-L2 - upper outer quadrant of right gluteus pool injection of lidocaine/glucocorticoid - outpatient video swallow evaluation - continue diet of soft foods as tolerated - continue quetiapine 12.5 mg qhs - continue to monitor for signs of withdrawal 06/25/21 afebrile vss// room air. back pain severe would like injection now refused x 2 prev. hurts when he moves but did not sit in chair today per preference. refused labs and ate well for lunch. drinking fluids fair. memory still present for yesterdays conversations. mood improved currently but has been very angry to all staff since last night . increased quintapine. to 25 mg day. p.e. unchanged. -comfort measures discussed with daughter who agrees. d-iscussed ct scan refused and will not force him to do this. - assess: etoh abuse chronic with mixed features of mood swings and forgetfulness. no acute withdrawal today . -dementia features. -chronic back pain likely compression fracture of thorasic and lumbar spine. djd as well and spondylolisthesis not ruled out but chronic and s- -subacute responding to pain patch and quintapine. meloxicam helping but he refuses it sometimes. -n.h placment being arranged for assistance and dementia concerns. -chronic etohism avoiding etoh for now address when he returns to [facility] 06/26/2021 Assessment: 1. Hx of vertebral compression fx of T11-12, L2 end plate compression 2. Sacroilitis right SI joint, right gluteal bursitis 3. Hx of alcoholism, agitation - mood has improved 4. Hx of dysphagia 5. Hx of COPD Plan: 1. attempt CT of abdomen/pelvis to assess vertebrae 2. lidocaine/glucocorticoid injection of R gluteal bursa 3. continue using fentanyl and lidocaine patches as tolerated for back pain 4. continue quetiapine for agitation and insomnia 5. continue current pulm regimen for COPD 6. plan to d/c to [facility] 06/27/2021 at guidance of daughter
[2021-06-27] MEDS: Acetaminophen/HYDROcodone 325-5 MG Tab PO PRN (17:17)
[2021-06-27] MEDS: QUEtiapine 25 MG Tab PO SCH (20:07)
[2021-06-27] MEDS: Mirtazapine 15 MG Tab PO SCH (20:07)
[2021-06-28] MEDS: Heparin Sodium 5,000 Units/ML Vial SUBCUT SCH ×3 (00:22→09:51)
[2021-06-28] MEDS: Albuterol/Ipratropium 3.0-0.5 MG/3 ML Neb Soln NEB SCH ×2 (05:46→09:53)
[2021-06-28] MEDS: Levothyroxine 125 MCG Tab PO SCH (06:07)
[2021-06-28 08:49] VITALS: BP 140/87; PULSE 106
[2021-06-28] MEDS ORDERED: Sennosides 8.6 MG Tab PO ONE (09:00)
[2021-06-28] MEDS: Acetaminophen 325 MG Tab PO SCH (09:43)
[2021-06-28] MEDS: Meloxicam 7.5 MG Tab PO SCH (09:45)
[2021-06-28] MEDS: Cyanocobalamin (Vitamin B12) 1,000 MCG Tab PO SCH (09:45)
[2021-06-28] MEDS: Calcium Carbonate/Vitamin D3 600 MG-200 Units Tab PO SCH (09:45)
[2021-06-28] MEDS: Fluticasone Propionate Nasal Spray 16 GM Bottle NASBOTH SCH (09:45)
[2021-06-28] MEDS: Diclofenac Sodium 1% Gel 100 GM Tube TOP SCH (09:46)
[2021-06-28] MEDS: Carboxymethylcellulose Sodium 1% Ophth Gel 15 ML Bottle EYEBOTH SCH ×2 (09:46→12:39)
[2021-06-28] MEDS: Tiotropium Bromide 4 GM Inhalation Spray (2.5mcg/1 dose; 10 doses) INH SCH (09:53)
[2021-06-28] MEDS: Lidocaine 4% 1 each Patch TOP SCH (11:52)
--- NOTE | 2021-06-28 12:02 | PCM.DCSUM1 ---
Discharge Summary - Hospital Course HPI Initial Comments: TEODORA This is a 81M with PMhx noted below presenting for evaluation of sob, cough and hypoxia. The patient is extremely hard of hearing and hx obtained from daughter. He lives in assisted living and presented to ED yesterday for evaluation of dry cough. In the ED he was hypoxic and requiring supplemental oxygen. He denied chest pain. CXR showed no clear infiltrate. He was noted to have elevated WBC. In the ED he was started on prednisone, antibiotics, duonebs and admitted for further evaluation. Per daughter he has had progressive decline over the last few months. HOSPITAL SUMMARY This is a 81M presenting for evaluation of sob, cough and hypoxia. In the ED he was hypoxic and requiring supplemental oxygen. CXR showed no clear infiltrate. CT PE negative for PE, right pleural effusion; right lung 4.2 cm mass. He was noted to have elevated WBC. In the ED he was started on prednisone, antibiotics, duonebs and admitted for further evaluation. Per daughter he has had progressive decline over the last few months. Pt antibiotics broadened on 06/21 due to lactic acidosis and hypotension 06/27/21 1. suspected PNA + COPD exacerbation -->procal 0.11 -changed to vanco+zosyn on 06/21 -dc zosyn -completed antibiotic and prednisone therapy 2. Right pleural effusion 3. Right lung mass 4.2 cm; suspect underlying malignancy (Primary vs metastatic) if patient wants further workup will need biopsy; however per daughter patient does not want to know if he has malignancy and does not want further workup 4. Hyperkalemia resolved 5. Chronic kidney disease +NANDO admission Cr 1.7; Cr improved to 1.1 6. adult failure to thrive 7. Hx of HTN 8. Hx of hypothyroidism 9. Hyponatremia; resolved 10. Mildly elevated troponin in context of CKD; denied chest pain 11. lactic acidosis; resolved 12. Concern for aspiration PNA vs pneumonitis; on aspiration precautions; has outpatient video swallow evaluation 13. Hx of insomnia; stopped trazodone 14. Hospital acquired delirium; started on seroquel 15. Hx of vertebral compression fx of T11-T12, L2 end plate compression 16. Sacroiliitis right SI joint, right gluteal bursitis 17. Hx of dysphagia 18. hx of Alcoholism 19. Generalized weakness discharging to short term rehab; jail anticipate he will need fdc placement -overall poor prognosis; daughter had some questions about comfort care; continued to discuss overall goals of care code-DNR/DNi DVT ppx-heparin subq Diagnosis: Stroke: No - Discharge Data Discharge Date: 06/28/21 Discharge Disposition: DC/Tfer to SNF 03 Condition: Stable - Referral to Home Health Primary Care Physician: Stan Kang MD - Patient Summary/Data Consults: Consultations 06/21/21 07:51 Consult to Case Management/Heading And Priming Tool Setter [CONS] Routine Consult to Honey Processor [CONS] Routine OT Evaluation and Treatment [CONS] Routine PT Evaluation and Treatment [CONS] Routine AIRWAY TRAFFIC CONTROLLER Evaluation and Treatment [CONS] Routine - Patient Instructions Diet: Heart Healthy Diet (Dysphagia Diet Level 2 with thin liquids) Activity: As Tolerated Notify Provider of: Fever, Increased Pain, Swelling and Redness, Nausea and/or Vomiting - Discharge Plan *PRESCRIPTION DRUG MONITORING PROGRAM REVIEWED*: Not Applicable *COPY OF PRESCRIPTION DRUG MONITORING REPORT IN PATIENT TWAN: Not Applicable Prescriptions/Med Rec: fentaNYL [Duragesic] 75 mcg TD Q72H #5 patch QUEtiapine Fumarate [Seroquel] 25 mg PO BEDTIME #30 tablet Home Medications: Home Meds Acetaminophen [Tylenol Arthritis Pain] 650 mg PO BID 02/19/16 [History] Acetaminophen [Tylenol Arthritis Pain] 650 mg PO Q8H PRN 02/19/16 [History] Calcium Carbonate/Vitamin D3 [Calcium 600-Vit D3 400 Tablet] 1 each PO BID 02/19/16 [History] Fluticasone Propionate [Flonase] 1 spray NASBOTH DAILY 02/19/16 [History] Glucosamine/D3/Boswellia Miri [Osteo Bi-Flex Caplet] 1 each PO DAILY 02/19/16 [History] Labetalol [Normodyne] 100 mg PO BID 02/19/16 [History] Levothyroxine Sodium [Synthroid] 125 mcg PO DAILY 02/19/16 [History] Meloxicam 15 mg PO DAILY 02/19/16 [History] Multivitamin [Multivitamins] 1 each PO DAILY 02/19/16 [History] Carboxymethylcellulose Sodium [Artificial Tears] 15 ml EYEBOTH QID 06/20/21 [History] Cyanocobalamin (Vitamin B-12) [Vitamin B-12] 1 tab PO DAILY 06/20/21 [History] Furosemide [Lasix] 40 mg PO BID 06/20/21 [History] Mirtazapine [Remeron] 15 mg PO BEDTIME 06/20/21 [History] Tiotropium Lula [Spiriva Respimat] 2 puff IH DAILY 06/20/21 [History] Glucosamine/D3/Boswellia Miri [Osteo Bi-Flex Tablet] 1 each PO BID 06/21/21 [History] QUEtiapine Fumarate [Seroquel] 25 mg PO BEDTIME #30 tablet 06/27/21 [Rx] fentaNYL [Duragesic] 75 mcg TD Q72H #5 patch 06/27/21 [Rx] Oxygen Therapy Mode: Room Air Patient Handouts: Chronic Obstructive Pulmonary Disease Exacerbation, [id number], Heart Failure, Self Care, [id number], Smokeless Tobacco Information, Adult, Living With Heart Failure, Steps to Quit Smoking Referrals: Bret Cortes MD [Radiologist] - 07/21/21 9:30 am (for a video swallow eval at xray department. please come 30 minutes prior to this to check in and pt must be npo after midnight of 07/20 with nothiing to eat or drink after midinght.) Himanshu Resendez MD [Physician] - 07/04/21 10:10 am (Establish care appt. and follow up visit Please arrive at 10:10 for appt. at 10:30) - Discharge Summary/Plan Comment DC Time >30 min.: Yes (35 minutes) Total # of Minutes for Discharge Time: 35 minutes - General Info Date of Service: 06/28/21 - Patient Data Vitals - Most Recent: Last Vital Signs Temp 98.2 F 06/28/21 08:32 Pulse 106 H 06/28/21 08:32 Resp 14 06/28/21 08:32 BP 140/87 06/28/21 08:32 Pulse Ox 97 06/28/21 09:53 Weight - Most Recent: 157 lb 12.8 oz I&O - Last 24 hours: Intake & Output 06/27/21 06/28/21 06/28/21 22:59 06:59 14:59 Intake Total 930 250 300 Output Total 200 300 Balance 730 -50 300 Lab Results - Last 24 hrs: Laboratory Results - last 24 hr 0806/28/21 06/28/21 Range/Units 15:03 06:00 06:00 WBC 9.14 H (4.23-9.07) K/mm3 RBC 3.95 L (4.63-6.08) M/mm3 Hgb 12.8 L (13.7-17.5) gm/dl Hct 38.6 L (40.1-51.0) % MCV 97.7 H (79.0-92.2) fl MCH 32.4 H (25.7-32.2) pg MCHC 33.2 (32.2-35.5) g/dl RDW Std Deviation 52.0 H (35.1-43.9) fL Plt Count 136 L (163-337) K/mm3 MPV 9.0 L (9.4-12.3) fl Neut % (Auto) 75.6 H (34.0-67.9) % Lymph % (Auto) 13.3 L (21.8-53.1) % [place] % (Auto) 9.3 (5.3-12.2) % Eos % (Auto) 1.6 (0.8-7.0) Baso % (Auto) 0.2 (0.1-1.2) % Neut # (Auto) 6.90 H (1.78-5.38) K/mm3 Lymph # (Auto) 1.22 L (1.32-3.57) K/mm3 [place] # (Auto) 0.85 H (0.30-0.82) K/mm3 Eos # (Auto) 0.15 (0.04-0.54) K/mm3 Baso # (Auto) 0.02 (0.01-0.08) K/mm3 Potassium 4.6 (3.5-5.1) mEq/L Magnesium 1.9 (1.8-2.4) mg/dL SARS-CoV-2 RNA (TIM) (NEGATIVE) 06/28/21 Range/Units 09:53 WBC (4.23-9.07) K/mm3 RBC (4.63-6.08) M/mm3 Hgb (13.7-17.5) gm/dl Hct (40.1-51.0) % MCV (79.0-92.2) fl MCH (25.7-32.2) pg MCHC (32.2-35.5) g/dl RDW Std Deviation (35.1-43.9) fL Plt Count (163-337) K/mm3 MPV (9.4-12.3) fl Neut % (Auto) (34.0-67.9) % Lymph % (Auto) (21.8-53.1) % [place] % (Auto) (5.3-12.2) % Eos % (Auto) (0.8-7.0) Baso % (Auto) (0.1-1.2) % Neut # (Auto) (1.78-5.38) K/mm3 Lymph # (Auto) (1.32-3.57) K/mm3 [place] # (Auto) (0.30-0.82) K/mm3 Eos # (Auto) (0.04-0.54) K/mm3 Baso # (Auto) (0.01-0.08) K/mm3 Potassium (3.5-5.1) mEq/L Magnesium (1.8-2.4) mg/dL SARS-CoV-2 RNA (TIM) Negative (NEGATIVE) JOE Results - Last 24 hrs: Microbiology 06/21/21 20:40 Blood Culture - Final Blood - Venous - Lab Draw 06/21/21 20:34 Blood Culture - Final Blood - Venous Med Orders - Current: Current Medications Acetaminophen (Acetaminophen 325 Mg Tab) 650 mg PO BID [facility] Last Admin: 06/28/21 09:43 Dose: 650 mg Documented by: Hydrocodone Bitart/Acetaminophen (Acetaminophen/Hydrocodone 325-5 Mg Tab) 2 tab PO Q6H PRN PRN Reason: Pain Last Admin: 06/27/21 17:17 Dose: 2 tab Documented by: Albuterol/Ipratropium (Albuterol/Ipratropium 3.0-0.5 Mg/3 Ml Neb Soln) 3 ml NEB QIDRT [facility] Last Admin: 06/28/21 09:53 Dose: 3 ml Documented by: Artificial Tears (Carboxymethylcellulose Sodium 1% Ophth Gel 15 Ml Bottle) 0 ml EYEBOTH QID [facility] Last Admin: 06/28/21 09:46 Dose: 1 drop Documented by: Benzonatate (Benzonatate 100 Mg Cap) 100 mg PO BID PRN PRN Reason: Cough Calcium Carbonate (Calcium Carbonate/Vitamin D3 600 Mg-200 Units Tab) 1 tab PO BID [facility] Last Admin: 06/28/21 09:45 Dose: 1 tab Documented by: Cyanocobalamin (Cyanocobalamin (Vitamin B12) 1,000 Mcg Tab) 1,000 mcg PO DAILY [facility] Last Admin: 06/28/21 09:45 Dose: 1,000 mcg Documented by: Diclofenac Sodium (Diclofenac Sodium 1% Gel 100 Gm Tube) 1 gm TOP BID [facility] Last Admin: 06/28/21 09:46 Dose: 1 applic Documented by: Fentanyl (Fentanyl 12 Mcg/Hr Transdermal Patch) 12 mcg TRDERM Q72H [facility] Last Admin: 06/27/21 09:31 Dose: 12 mcg Documented by: Fluticasone Propionate (Fluticasone Propionate Nasal [place] 16 Gm Bottle) 0 gm NASBOTH DAILY [facility] Last Admin: 06/28/21 09:45 Dose: 1 spray Documented by: Heparin Sodium (Porcine) (Heparin Sodium 5,000 Units/Ml Vial) 5,000 units SUBCUT Q8H [facility] Last Admin: 06/28/21 09:51 Dose: Not Given Documented by: Levothyroxine Sodium (Levothyroxine 125 Mcg Tab) 125 mcg PO DAILY@0700 [facility] Last Admin: 06/28/21 06:07 Dose: 125 mcg Documented by: Lidocaine (Lidocaine 4% 1 Each Patch) 1 each TOP Q24H [facility] Last Admin: 06/28/21 11:52 Dose: 1 each Documented by: Melatonin (Melatonin 3 Mg Tab) 6 mg PO BEDTIME PRN PRN Reason: Sleep Last Admin: 06/25/21 21:29 Dose: 6 mg Documented by: Meloxicam (Meloxicam 7.5 Mg Tab) 15 mg PO DAILY [facility] Last Admin: 06/28/21 09:45 Dose: 15 mg Documented by: Mirtazapine (Mirtazapine 15 Mg Tab) 15 mg PO BEDTIME [facility] Last Admin: 06/27/21 20:07 Dose: 15 mg Documented by: Miscellaneous Information (Remove Lidocaine 4% Patch) 1 ea TOP Q24H [facility] Last Admin: 06/27/21 21:44 Dose: Not Given Documented by: Miscellaneous Information (Remove And Replace Fentanyl Patch) 1 ea TRDERM Q72H [facility] Last Admin: 06/27/21 09:32 Dose: 1 ea Documented by: Ondansetron HCl (Ondansetron 4 Mg/2 Ml Sdv) 4 mg IV Q4H PRN PRN Reason: Nausea/Vomiting Quetiapine Fumarate (Quetiapine 25 Mg Tab) 25 mg PO BEDTIME [facility] Last Admin: 06/27/21 20:07 Dose: 25 mg Documented by: Tiotropium Lula (Tiotropium Lula 4 Gm Inhalation [place] (2.5mcg/1 Dose; 10 Doses)) 0 gm INH DAILY [facility] Last Admin: 06/28/21 09:53 Dose: 2 inhalation Documented by: Discontinued Medications Albuterol/Ipratropium (Albuterol/Ipratropium 3.0-0.5 Mg/3 Ml Neb Soln) 3 ml NEB QID [facility] Aspirin (Aspirin 81 Mg Tab.Chew) 324 mg PO ONETIME ONE Stop: 06/20/21 20:29 Last Admin: 06/20/21 21:24 Dose: 324 mg Documented by: Azithromycin (Azithromycin 250 Mg Tab) 500 mg PO ONETIME ONE Stop: 06/20/21 20:27 Last Admin: 06/20/21 21:25 Dose: 500 mg Documented by: Azithromycin (Azithromycin 250 Mg Tab) 500 mg PO DAILY [facility] Last Admin: 06/21/21 20:44 Dose: 500 mg Documented by: Bupivacaine HCl (Bupivacaine 0.5% 10 Ml Sdv) 10 ml INJECT ONETIME ONE Stop: 06/24/21 17:49 Last Admin: 06/24/21 19:20 Dose: Not Given Documented by: Bupivacaine HCl (Bupivacaine 0.5% 10 Ml Sdv) 10 ml INJECT ONETIME ONE Stop: 06/26/21 15:27 Last Admin: 06/26/21 16:00 Dose: 10 ml Documented by: Cefdinir (Cefdinir 300 Mg Cap) 300 mg PO ONETIME ONE Stop: 06/20/21 20:24 Last Admin: 06/20/21 21:25 Dose: 300 mg Documented by: Cefdinir (Cefdinir 300 Mg Cap) 300 mg PO BID [facility] Last Admin: 06/21/21 20:46 Dose: 300 mg Documented by: Furosemide (Furosemide 40 Mg/4 Ml Vial) 40 mg IVPUSH NOW ONE Stop: 06/20/21 20:24 Last Admin: 06/20/21 21:37 Dose: 40 mg Documented by: Furosemide (Furosemide 40 Mg Tab) 40 mg PO BID [facility] Last Admin: 06/21/21 08:57 Dose: 40 mg Documented by: Furosemide (Furosemide 20 Mg/2 Ml Vial) 20 mg IVPUSH ONETIME ONE Stop: 06/27/21 10:01 Last Admin: 06/27/21 09:19 Dose: 20 mg Documented by: Sodium Chloride (Normal Saline) 1,000 mls @ 500 mls/hr IV ONETIME ONE Stop: 06/20/21 20:28 Last Infusion: 06/20/21 19:00 Dose: 100 mls/hr Documented by: Sodium Chloride (Normal Saline) 45 mls @ 40 mls/hr IV ASDIRECTED [facility] Last Admin: 06/20/21 19:42 Dose: 40 mls/hr Documented by: Sodium Chloride (Normal Saline) 1,000 mls @ 75 mls/hr IV ASDIRECTED [facility] Last Admin: 06/21/21 02:37 Dose: 75 mls/hr Documented by: Lactated Ringer's (Ringers, Lactated) 250 mls @ 250 mls/hr IV ASDIRECTED [facility] Last Admin: 06/21/21 13:51 Dose: 250 mls/hr Documented by: Lactated Ringer's (Ringers, Lactated) 250 mls @ 125 mls/hr IV ASDIRECTED [facility] Last Admin: 06/21/21 17:30 Dose: 125 mls/hr Documented by: Lactated Ringer's (Ringers, Lactated) 500 mls @ 250 mls/hr IV BOLUS ONE Stop: 06/21/21 21:59 Last Admin: 06/21/21 21:14 Dose: 250 mls/hr Documented by: Piperacillin Sod/Tazobactam (Sod 4.5 gm/ Sodium Chloride) 100 mls @ 200 mls/hr IV ONETIME ONE Stop: 06/21/21 20:59 Last Admin: 06/21/21 20:41 Dose: 200 mls/hr Documented by: Piperacillin Sod/Tazobactam (Sod 4.5 gm/ Sodium Chloride) 100 mls @ 25 mls/hr IV Q8H [facility] Last Admin: 06/23/21 09:36 Dose: Not Given Documented by: Vancomycin HCl 1 gm/ Sodium (Chloride) 250 mls @ 250 mls/hr IV Q24H [facility] Last Admin: 06/21/21 21:15 Dose: 250 mls/hr Documented by: Sodium Chloride (Normal Saline) 500 mls @ 500 mls/hr IV .BOLUS ONE Stop: 06/27/21 09:53 Last Admin: 06/27/21 09:17 Dose: 500 mls/hr Documented by: Iopamidol (Iopamidol 755 Mg/Ml 100 Ml Bottle) 100 ml IVPUSH ONETIME ONE Stop: 06/20/21 18:43 Last Admin: 06/20/21 19:42 Dose: 100 ml Documented by: Labetalol HCl (Labetalol 100 Mg Tab) 100 mg PO ONETIME ONE Stop: 06/20/21 20:29 Last Admin: 06/20/21 23:32 Dose: Not Given Documented by: Labetalol HCl (Labetalol 100 Mg TabPt Own) 100 mg PO ONETIME ONE Stop: 06/20/21 23:31 Last Admin: 06/20/21 23:33 Dose: 100 mg Documented by: Labetalol HCl (Labetalol 100 Mg Tab) 100 mg PO BID [facility] Last Admin: 06/21/21 08:56 Dose: 100 mg Documented by: Labetalol HCl (Labetalol 100 Mg Tab) 100 mg PO BID [facility] Levothyroxine Sodium (Levothyroxine 125 Mcg Tab) 125 mcg PO DAILY [facility] Last Admin: 06/21/21 08:58 Dose: 125 mcg Documented by: Mirtazapine (Mirtazapine 15 Mg Tab) 15 mg PO BEDTIME [facility] Last Admin: 06/21/21 21:23 Dose: 15 mg Documented by: Trazodone 150 Mg (Tablet - Pt Own Med) 0 mg PO BEDTIME [facility] Last Admin: 06/21/21 21:25 Dose: 225 mg Documented by: Prednisone (Prednisone 20 Mg Tab) 60 mg PO ONETIME ONE Stop: 06/20/21 20:24 Last Admin: 06/20/21 21:31 Dose: 60 mg Documented by: Prednisone (Prednisone 20 Mg Tab) Confirm Administered Dose 20 mg .ROUTE .STK- MED ONE Stop: 06/20/21 21:29 Last Admin: 06/20/21 23:00 Dose: Not Given Documented by: Prednisone (Prednisone 20 Mg Tab) 40 mg PO WITHBREAKFAST [facility] Last Admin: 06/23/21 06:18 Dose: 40 mg Documented by: Quetiapine Fumarate (Quetiapine 25 Mg Tab) 12.5 mg PO BEDTIME [facility] Last Admin: 06/24/21 20:10 Dose: 12.5 mg Documented by: Quetiapine Fumarate (Quetiapine 25 Mg Tab) 12.5 mg PO BID [facility] Last Admin: 06/25/21 10:04 Dose: Not Given Documented by: Quetiapine Fumarate (Quetiapine 25 Mg Tab) 25 mg PO ONETIME ONE Stop: 06/25/21 15:27 Last Admin: 06/25/21 15:34 Dose: 25 mg Documented by: Senna (Sennosides 8.6 Mg Tab) 8.6 mg PO ONETIME ONE Stop: 06/28/21 09:01 Last Admin: 06/28/21 09:43 Dose: 8.6 mg Documented by: Sodium Chloride (Sodium Chloride 0.9% 10 Ml Syringe) 10 ml FLUSH ASDIRECTED PRN PRN Reason: Keep Vein Open Sodium Chloride (Sodium Chloride 0.9% 10 Ml Syringe) 10 ml FLUSH ONETIME PRN PRN Reason: Keep Vein Open Last Admin: 06/20/21 19:42 Dose: 10 ml Documented by: Spironolactone (Spironolactone 25 Mg Tab) 25 mg PO DAILY [facility] Last Admin: 06/21/21 08:57 Dose: 25 mg Documented by: Trazodone HCl (Trazodone 50 Mg Tab) 225 mg PO BEDTIME [facility] Last Admin: 06/22/21 20:31 Dose: 225 mg Documented by: Triamcinolone Acetonide (Triamcinolone Acetonide 40 Mg/Ml 1 Ml Sdv) 40 mg INJECT ONETIME ONE Stop: 06/24/21 17:40 Last Admin: 06/24/21 19:19 Dose: Not Given Documented by: Triamcinolone Acetonide (Triamcinolone Acetonide 40 Mg/Ml 1 Ml Sdv) 40 mg I NJECT ONETIME ONE Stop: 06/26/21 15:27 Last Admin: 06/26/21 16:00 Dose: 40 mg Documented by: Vancomycin HCl (Pharmacy To Dose - Vancomycin) 1 dose .XX ASDIRECTED BLAYNE - Exam General: Reports: Alert HEENT: Reports: EOMI, Mucous Membr. Moist/[place]ck: Reports: Supple Lungs: Reports: Clear to Auscultation, Normal Respiratory Effort Cardiovascular: Reports: Regular Rate, Regular Rhythm Back Exam: Reports: Normal Inspection Extremities: Normal Inspection Skin: Reports: Warm, Dry, Intact Neurological: Reports: No New Focal Deficit Psy/Mental Status: Reports: Alert (very hard of hearing ) *Q Meaningful Use (DIS) - VTE *Q VTE Criteria *Q: 2
== END 2021-06-28 13:00 | DRG 178 ==
LOC: JD.ED 15:38 → JD.MS 21:00 → OBSVTOIN 06-21 14:59
PROVIDERS: ADMIT Hospitalist; ATTEND Hospitalist
PROC: 3E013BZ Introduction of Anesthetic Agent into Subcutaneous Tissue, Percutaneous Approach (ICD-10-PCS; principal; 2021-06-26)
DX: J69.0 Pneumonitis due to inhalation of food and vomit (principal); J44.1 Chronic obstructive pulmonary disease with (acute) exacerbation; J90 Pleural effusion, not elsewhere classified; N17.9 Acute kidney failure, unspecified; E87.1 Hypo-osmolality and hyponatremia; E87.2 Acidosis; R91.8 Other nonspecific abnormal finding of lung field; E87.5 Hyperkalemia; R77.8 Other specified abnormalities of plasma proteins; H91.90 Unspecified hearing loss, unspecified ear; H54.7 Unspecified visual loss; I25.10 Atherosclerotic heart disease of native coronary artery without angina pectoris; I13.0 Hypertensive heart and chronic kidney disease with heart failure and stage 1 through stage 4 chronic kidney disease, or unspecified chronic kidney disease; I50.9 Heart failure, unspecified; E78.00 Pure hypercholesterolemia, unspecified; G47.30 Sleep apnea, unspecified; M19.90 Unspecified osteoarthritis, unspecified site; G89.29 Other chronic pain; M54.9 Dorsalgia, unspecified; F03.90 Unspecified dementia, unspecified severity, without behavioral disturbance, psychotic disturbance, mood disturbance, and anxiety; F17.210 Nicotine dependence, cigarettes, uncomplicated; I12.9 Hypertensive chronic kidney disease with stage 1 through stage 4 chronic kidney disease, or unspecified chronic kidney disease; N18.9 Chronic kidney disease, unspecified; R62.7 Adult failure to thrive; E03.9 Hypothyroidism, unspecified; G47.00 Insomnia, unspecified; R41.0 Disorientation, unspecified; Z66 Do not resuscitate; Z51.5 Encounter for palliative care; R09.02 Hypoxemia; Z20.822 Contact with and (suspected) exposure to COVID-19; M46.1 Sacroiliitis, not elsewhere classified; M71.551 Other bursitis, not elsewhere classified, right hip; F10.21 Alcohol dependence, in remission; Z68.22 Body mass index [BMI] 22.0-22.9, adult; Z87.81 Personal history of (healed) traumatic fracture
CPT/HCPCS: 0240U; 36415; 71045; 71046; 71275; 72131; 80048; 80053; 81001; 82728; 83605; 83615; 83735; 83880; 84132; 84145; 84484; 85025; 85027; 85379; 85610; 85730; 86140; 87040; 87493; 87641; 92610; 93005; 94640; 94761; 96374; 97162; 97530; 99285; 93010; 96372; 99223; 99233; 99239; A9270-GY; G0378; J1644; J1940; J2543; J3301; J3370; J3490; J7030; J7050; J7120; J7512; J7620-GY; Q9967; U0002

== ENCOUNTER 2021-09-11 20:44 | Inpatient (IN) | payer MEDICARE, OTHER ==
[2021-09-11] MEDS ORDERED: Sodium Chloride 0.9% 10 ML Syringe FLUSH PRN (21:07)
[2021-09-11] MEDS ORDERED: Sodium Chloride 0.9% 1,000 ML IV SCH (21:15)
[2021-09-11] MEDS ORDERED: QUEtiapine 25 MG Tab PO ONE (23:20)
[2021-09-11] MEDS ORDERED: Lactated Ringers 1,000 ML IV ONE (23:58)
[2021-09-11] MEDS ORDERED: Albuterol 0.083% 2.5 MG/3 ML Neb Soln NEB ONE (23:58)
[2021-09-11] MEDS ORDERED: Sodium Polystyrene Sulfonate 15 GM/60 ML Susp 60 ML Bot PO ONE (23:58)
[2021-09-11] MEDS ORDERED: 50% Dextrose in Water 50 ML Syringe IVPUSH ONE (23:59)
[2021-09-11] MEDS ORDERED: Calcium Gluconate 10% 1 GM/10 ML SDV IVPUSH ONE (23:59)
[2021-09-12] MEDS ORDERED: Insulin Regular, Human 100 Units/ML 3 ML Vial SUBCUT ONE
[2021-09-12] MEDS ORDERED: LORazepam 2 MG/ML SDV IVPUSH ONE (01:26)
--- NOTE | 2021-09-12 01:27 | EDM.PDOC ---
ED HPI GENERAL MEDICAL PROBLEM - General Chief Complaint: Cardiovascular Problem Stated Complaint: [facility] Time Seen by Provider: 09/11/21 20:50 Source of Information: Reports: EMS, Family, Long-Term Records History Limitations: Reports: Altered Mental Status - History of Present Illness INITIAL COMMENTS - FREE TEXT/NARRATIVE: The patient presents from [facility]. He has been more weak lately. The [facility] found him on the floor by his wheel chair. He had no LOC. He has no headache or neck pain. He has no fever or chills. The patient had COVID 19 twice and just got off of quarantine 2 weeks ago. He has no cough. He is confused per his norm. He has no chest pain or shortness of breath. Onset: Gradual Duration: Day(s): Severity: Moderate Improves with: Reports: None Worsens with: Reports: None Associated Symptoms: Reports: Confusion. Denies: Chest Pain, Cough, Fever/Chills, Headaches, Nausea/Vomiting, Shortness of Breath - Related Data Allergies Allergy/AdvReac Type Severity Reaction Status Date / Time amlodipine Allergy Cannot Verified 06/20/21 22:32 Remember amlodipine besylate Allergy Cannot Verified 06/20/21 22:32 [From [facility]] Remember Home Meds: Home Meds Acetaminophen [Tylenol Arthritis Pain] 650 mg PO BID 02/19/16 [History] Acetaminophen [Tylenol Arthritis Pain] 650 mg PO Q8H PRN 02/19/16 [History] Calcium Carbonate/Vitamin D3 [Calcium 600-Vit D3 400 Tablet] 1 each PO BID 02/19/16 [History] Fluticasone Propionate [Flonase] 1 spray NASBOTH DAILY 02/19/16 [History] Glucosamine/D3/Boswellia Miri [Osteo Bi-Flex Caplet] 1 each PO DAILY 02/19/16 [History] Labetalol [Normodyne] 100 mg PO BID 02/19/16 [History] Levothyroxine Sodium [Synthroid] 125 mcg PO DAILY 02/19/16 [History] Meloxicam 15 mg PO DAILY 02/19/16 [History] Multivitamin [Multivitamins] 1 each PO DAILY 02/19/16 [History] Carboxymethylcellulose Sodium [Artificial Tears] 15 ml EYEBOTH QID 06/20/21 [Hi story] Cyanocobalamin (Vitamin B-12) [Vitamin B-12] 1 tab PO DAILY 06/20/21 [History] Furosemide [Lasix] 40 mg PO BID 06/20/21 [History] Mirtazapine [Remeron] 15 mg PO BEDTIME 06/20/21 [History] Tiotropium [place] [Spiriva Respimat] 2 puff IH DAILY 06/20/21 [History] Glucosamine/D3/Boswellia Miri [Osteo Bi-Flex Tablet] 1 each PO BID 06/21/21 [History] QUEtiapine Fumarate [Seroquel] 25 mg PO BEDTIME #30 tablet 06/27/21 [Rx] fentaNYL [Duragesic] 75 mcg TD Q72H #5 patch 06/27/21 [Rx] Past Medical History - Past Health History Medical/Surgical History: Denies Medical/Surgical History HEENT History: Reports: Hard of Hearing, Impaired Vision 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 mass on lung- monitoring and pts daughter states it has remained unchanged. Genitourinary History: Reports: Other (See Below) Other Genitourinary History: pts daughter states they're watching his kidney labs and recheck in 1 week from today to monitor kidney function Musculoskeletal History: Reports: Arthritis, Back Pain, Chronic, Other (See Below) Other Musculoskeletal History: DJD Neurological History: Reports: Other (See Below) Other Neuro History: Dementia. 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 Psychiatric History: Reports: Dementia Endocrine/Metabolic History: Reports: Hypothyroidism Oncologic (Cancer) History: Reports: Other (See Below) Other Oncologic History: lung nodule- that pcp is monitoring Dermatologic History: Reports: Other (See Below) Other Dermatologic History: brown discoloration to bilateral legs - Infectious Disease History Infectious Disease History: Reports: Chicken Pox, Measles, Mumps, Novel Coronavirus Social & Family History - Family History Cardiac: Reports: Pacemaker GI: Reports: Other (See Below) Other GI Family History: STOMACH CANCER - Tobacco Use Tobacco Use Status *Q: Never Tobacco User - Caffeine Use Caffeine Use: Reports: Coffee, Soda - Recreational Drug Use Recreational Drug Use: No ED ROS GENERAL - Review of Systems Review Of Systems: See Below Constitutional: Reports: Malaise, Weakness, Fatigue. Denies: Fever, Chills HEENT: Reports: No Symptoms Respiratory: Reports: No Symptoms Cardiovascular: Reports: No Symptoms Endocrine: Reports: Fatigue GI/Abdominal: Reports: No Symptoms Musculoskeletal: Reports: No Symptoms ED EXAM, GENERAL - Physical Exam Exam: See Below Exam Limited By: Altered Mental Status (He is confused) General Appearance: Alert, No Apparent Distress Ears: Normal External Exam Nose: Normal Inspection Head: Atraumatic, Normocephalic Neck: Normal Inspection, Supple, Non-Tender Respiratory/Chest: No Respiratory Distress, Lungs Clear, Normal Breath Sounds Cardiovascular: Regular Rate, Rhythm, No Edema, No Murmur GI/Abdominal: Soft, Non-Tender, No Organomegaly, No Mass Back Exam: Normal Inspection Extremities: Other (No pain upon palpation to his arms or legs. He does have multiple abrasions to his arms and legs.) #1 Interpretation EKG Date: 09/11/21 Time: 09:21 Rhythm: Other (Junctional rhythm) Rate (Beats/Min): 64 [place]: Normal P-Wave: Absent QRS: Normal ST-T: Normal QT: Normal Course - Vital Signs Last Recorded V/S: Last Vital Signs Temp 97.4 F 09/11/21 21:06 Pulse 81 09/12/21 06:54 Resp 18 09/11/21 21:06 BP 83/65 L 09/12/21 06:54 Pulse Ox 96 09/12/21 03:24 - Orders/Labs/Meds Orders: Active Orders 24 hr Category Date Time Status Cardiac Monitoring [RC] . DIRECTED Care 09/11/21 21:07 Active Peripheral IV Care [RC] . DIRECTED Care 09/11/21 21:07 Active RT Aerosol Therapy [RC] ASDIRECTED Care 09/11/21 23:58 Active Sodium Chloride 0.9% [Normal Saline] 1,000 ml Med 09/11/21 21:15 Active IV .BOLUS Sodium Chloride 0.9% [Saline Flush] Med 09/11/21 21:07 Active 10 ml FLUSH ASDIRECTED PRN Peripheral IV Insertion Adult [OM.PC] Stat Oth 09/11/21 21:07 Ordered Medication Orders Sodium Chloride (Normal Saline) 1,000 mls @ 1,000 mls/hr IV .BOLUS BLAYNE Last Admin: 09/11/21 21:18 Dose: 1,000 mls/hr Documented by: CARLOS Sodium Chloride (Sodium Chloride 0.9% 10 Ml Syringe) 10 ml FLUSH ASDIRECTED PRN PRN Reason: Keep Vein Open Last Admin: 09/11/21 21:18 Dose: 10 ml Documented by: CARLOS Labs: Laboratory Tests 09/11/21 09/11/21 09/12/21 Range/Units 21:16 21:16 03:05 WBC 5.87 (4.23-9.07) K/mm3 RBC 3.43 L (4.63-6.08) M/mm3 Hgb 10.4 L (13.7-17.5) gm/dl Hct 32.7 L (40.1-51.0) % MCV 95.3 H D (79.0-92.2) fl MCH 30.3 (25.7-32.2) pg MCHC 31.8 L (32.2-35.5) g/dl RDW Std Deviation 45.4 H (35.1-43.9) fL Plt Count 137 L D (163-337) K/mm3 MPV 10.6 (9.4-12.3) fl Neut % (Auto) 77.8 H (34.0-67.9) % Lymph % (Auto) 9.7 L (21.8-53.1) % [place] % (Auto) 8.9 (5.3-12.2) % Eos % (Auto) 3.1 (0.8-7.0) Baso % (Auto) 0.3 (0.1-1.2) % Neut # (Auto) 4.57 (1.78-5.38) K/mm3 Lymph # (Auto) 0.57 L (1.32-3.57) K/mm3 [place] # (Auto) 0.52 (0.30-0.82) K/mm3 Eos # (Auto) 0.18 (0.04-0.54) K/mm3 Baso # (Auto) 0.02 (0.01-0.08) K/mm3 Sodium 136 139 (136-145) mEq/L Potassium 6.9 H* 5.2 H D (3.5-5.1) mEq/L Chloride 105 108 H (98-107) mEq/L Carbon Dioxide 21 19 L (21-32) mEq/L Anion Gap 16.9 H 17.2 H (5-15) BUN 70 H D 67 H (7-18) mg/dL Creatinine 4.3 H D 4.0 H (0.7-1.3) mg/dL Est Cr Clr Drug Dosing 11.69 12.57 mL/min Estimated GFR (MDRD) 13 14 (>60) mL/min BUN/Creatinine Ratio 16.3 16.8 (14-18) Glucose 113 H 56 L (70-99) mg/dL Calcium 7.5 L 7.4 L (8.5-10.1) mg/dL Total Bilirubin 0.4 0.4 (0.2-1.0) mg/dL AST 17 12 L (15-37) U/L ALT 16 12 L (16-63) U/L Alkaline Phosphatase 162 H 129 H (46-116) U/L Troponin I < 0.017 (0.00-0.056) ng/mL C-Reactive Protein 19.7 H* (<1.0) mg/dL Total Protein 5.8 L 5.1 L (6.4-8.2) g/dl Albumin 2.4 L 1.9 L (3.4-5.0) g/dl Globulin 3.4 3.2 gm/dL Albumin/Globulin Ratio 0.7 L 0.6 L (1-2) Urine Color (Yellow) Urine Appearance (Clear) Urine pH (5.0-8.0) Ur Specific [place] (1.005-1.030) Urine Protein (Negative) Urine Glucose (UA) (Negative) Urine Ketones (Negative) Urine Occult Blood (Negative) Urine Nitrite (Negative) Urine Bilirubin (Negative) Urine Urobilinogen (0.2-1.0) Ur Leukocyte Esterase (Negative) U Hyaline Cast (Auto) (0-5) /lpf Urine RBC (0-5) /hpf Urine WBC (0-5) /hpf Ur Squamous Epith Cells (0-5) /hpf Urine Bacteria (FEW) /hpf Urine Mucus (FEW) /hpf 09/12/21 09/12/21 Range/Units 06:15 06:21 WBC (4.23-9.07) K/mm3 RBC (4.63-6.08) M/mm3 Hgb (13.7-17.5) gm/dl Hct (40.1-51.0) % MCV (79.0-92.2) fl MCH (25.7-32.2) pg MCHC (32.2-35.5) g/dl RDW Std Deviation (35.1-43.9) fL Plt Count (163-337) K/mm3 MPV (9.4-12.3) fl Neut % (Auto) (34.0-67.9) % Lymph % (Auto) (21.8-53.1) % [place] % (Auto) (5.3-12.2) % Eos % (Auto) (0.8-7.0) Baso % (Auto) (0.1-1.2) % Neut # (Auto) (1.78-5.38) K/mm3 Lymph # (Auto) (1.32-3.57) K/mm3 [place] # (Auto) (0.30-0.82) K/mm3 Eos # (Auto) (0.04-0.54) K/mm3 Baso # (Auto) (0.01-0.08) K/mm3 Sodium 137 (136-145) mEq/L Potassium 5.4 H (3.5-5.1) mEq/L Chloride 108 H (98-107) mEq/L Carbon Dioxide 16 L (21-32) mEq/L Anion Gap 18.4 H (5-15) BUN 65 H (7-18) mg/dL Creatinine 3.8 H (0.7-1.3) mg/dL Est Cr Clr Drug Dosing 13.23 mL/min Estimated GFR (MDRD) 15 (>60) mL/min BUN/Creatinine Ratio 17.1 (14-18) Glucose 88 (70-99) mg/dL Calcium 7.3 L (8.5-10.1) mg/dL Total Bilirubin 0.3 (0.2-1.0) mg/dL AST 13 L (15-37) U/L ALT 14 L (16-63) U/L Alkaline Phosphatase 143 H (46-116) U/L Troponin I (0.00-0.056) ng/mL C-Reactive Protein (<1.0) mg/dL Total Protein 5.4 L (6.4-8.2) g/dl Albumin 2.0 L (3.4-5.0) g/dl Globulin 3.4 gm/dL Albumin/Globulin Ratio 0.6 L (1-2) Urine Color Yellow (Yellow) Urine Appearance Clear (Clear) Urine pH 6.0 (5.0-8.0) Ur Specific [place] 1.020 (1.005-1.030) Urine Protein Trace H (Negative) Urine Glucose (UA) Negative (Negative) Urine Ketones Negative (Negative) Urine Occult Blood Negative (Negative) Urine Nitrite Negative (Negative) Urine Bilirubin Negative (Negative) Urine Urobilinogen 0.2 (0.2-1.0) Ur Leukocyte Esterase Negative (Negative) U Hyaline Cast (Auto) 10-20 H (0-5) /lpf Urine RBC Not seen (0-5) /hpf Urine WBC 0-5 (0-5) /hpf Ur Squamous Epith Cells 0-5 (0-5) /hpf Urine Bacteria Few (FEW) /hpf Urine Mucus Few (FEW) /hpf Meds: Medications Generic Name Dose Route Start Last Admin Trade Name Freq PRN Reason Stop Dose Admin Sodium Chloride 1,000 mls @ 1,000 mls/hr 09/11/21 21:15 09/11/21 21:18 Normal Saline IV 1,000 mls/hr .BOLUS BLAYNE Administration Sodium Chloride 10 ml 09/11/21 21:07 09/11/21 21:18 Sodium Chloride 0.9% 10 Ml Syringe FLUSH 10 ml ASDIRECTED PRN Administration Keep Vein Open Discontinued Medications Generic Name Dose Route Start Last Admin Trade Name Freq PRN Reason Stop Dose Admin Albuterol 2.5 mg 09/11/21 23:58 09/12/21 00:17 Albuterol 0.083% 2.5 Mg/3 Ml Neb Soln NEB 09/11/21 23:59 2.5 mg ONETIME ONE Administration Calcium Gluconate 1 gm 09/11/21 23:59 09/12/21 00:24 Calcium Gluconate 10% 1 Gm/10 Ml Sdv IVPUSH 09/12/21 00:00 1 gm ONETIME ONE Administration Dextrose/Water 50 ml 09/11/21 23:59 09/12/21 00:24 50% Dextrose In Water 50 Ml Syringe IVPUSH 09/12/21 00:00 50 ml ONETIME ONE Administration Lactated Ringer's 1,000 mls @ 1,000 mls/hr 09/11/21 23:58 09/12/21 00:25 Ringers, Lactated IV 09/12/21 00:57 1,000 mls/hr .BOLUS ONE Administration Lactated Ringer's 1,000 mls @ 1,000 mls/hr 09/12/21 02:16 09/12/21 02:20 Ringers, Lactated IV 09/12/21 03:15 1,000 mls/hr .BOLUS ONE Administration Insulin Human Regular 10 unit 09/12/21 00:00 09/12/21 00:24 Insulin Regular, Human 100 Units/Ml 3 Ml Vial SUBCUT 09/12/21 00:01 10 unit ONETIME ONE Administration Lorazepam 1 mg 09/12/21 01:26 09/12/21 01:29 Lorazepam 2 Mg/Ml Sdv IVPUSH 09/12/21 01:27 1 mg ONETIME ONE Administration Quetiapine Fumarate 25 mg 09/11/21 23:20 09/11/21 23:41 Quetiapine 25 Mg Tab PO 09/11/21 23:21 25 mg ONETIME ONE Administration Sodium Polystyrene Sulfonate 45 gm 09/11/21 23:58 09/12/21 00:25 Sodium Polystyrene Sulfonate 15 Gm/60 Ml Susp 60 Ml Bot PO 09/11/21 23:59 45 gm NOW ONE Administration - Re-Assessments/Exams Free Text/Narrative Re-Assessment/Exam: 09/12/21 07:17 I ordered an IV NS 1L bolus, EKG, CT of his head, labs and UA. I did not do a COVID swab. He just came off of quarantine and would test positive. He has no other symptoms then generalized weakness. His EKG shows a junctional rhythm. The CT of his head shows no acute intracranial hemorrhage or edema identified. His Hgb was low at 10.4. His K was very high at 6.9. His anion gap was elevated at 16.9. His creatinine is elevated at 4.3. His creatinine has been creeping up over the past few months. It was normal in July. September 08 is was elevated at 2.3. His GFR today is 13. His troponin is negative. His CRP is elevated at 19.7. It appears he is in renal failure. I have ordered fluids. His BP was low. There is no beds here or in the state. I will give him fluids through the night and check labs in the morning. He did get agitated. I gave him his seroquel. That did not help. I gave him some ativan 1mg IV for agitation and that helped. He slept through the night. I rechecked his CMP and it showed K was 5.2 and creatinine was 4. I rechecked his CMP again at 9 hours. His creatinine 3.8 and K was 5.4. He got a total of 4Ls and is making urine. My nurse strait cathed him and got about a liter of urine out. His blood pressures have been mostly low in the 70s and 80s. He is at 84/69 now. I feel he needs to be admitted. 09/12/21 07:44 I did talk within his daughter who is his power of military source operations officer. The patient is DNR/DNI. She did not want dialysis and did not want the patient to travel anywhere. She is okay with fluids and oxygen as needed. I told her about his blood pressure and how it has been low and not responding to fluids like I was hoping. She did not want any vasopressors started to try to elevate his blood pressure. She was looking more for palliative care at this time. I will see if we have a bed opening up. 09/12/21 08:22 I talked to our hospitalist Dr Goldstein. At this time he was not sure if there will be any discharges. I will have the patient stay here until we find out if we have a bed. Departure - Departure Time of Disposition: 08:30 Disposition: Admitted As Inpatient 64 Condition: Serious Clinical Impression: Hyperkalemia, Generalized weakness Renal failure Qualifiers: Renal failure chronicity: acute Acute renal failure type: unspecified Qualified Code(s): N17.9 - Acute kidney failure, unspecified Hypotension Qualifiers: Hypotension type: other hypotension type Qualified Code(s): I95.89 - Other hypotension Referrals: Himanshu Resendez MD [Primary Care Provider] - Forms: ED Department Discharge Sepsis Event Note (ED) - Evaluation Sepsis Screening Result: No Definite Risk - Focused Exam Vital Signs: Vital Signs Temp Pulse Resp BP Pulse Ox Pulse Ox 09/12/21 06:54 81 83/65 L 09/12/21 03:24 86 64/41 L 96 09/12/21 00:18 95 09/11/21 21:06 97.4 F 64 18 75/42 L 95 - My Orders Last 24 Hours: My Active Orders 09/11/21 21:07 Cardiac Monitoring [RC] . DIRECTED Peripheral IV Care [RC] . DIRECTED Sodium Chloride 0.9% [Saline Flush] 10 ml FLUSH ASDIRECTED PRN Peripheral IV Insertion Adult [OM.PC] Stat 09/11/21 21:15 Sodium Chloride 0.9% [Normal Saline] 1,000 ml IV .BOLUS 09/11/21 23:58 RT Aerosol Therapy [RC] ASDIRECTED - Assessment/Plan Last 24 Hours: My Active Orders 09/11/21 21:07 Cardiac Monitoring [RC] . DIRECTED Peripheral IV Care [RC] . DIRECTED Sodium Chloride 0.9% [Saline Flush] 10 ml FLUSH ASDIRECTED PRN Peripheral IV Insertion Adult [OM.PC] Stat 09/11/21 21:15 Sodium Chloride 0.9% [Normal Saline] 1,000 ml IV .BOLUS 09/11/21 23:58 RT Aerosol Therapy [RC] ASDIRECTED
[2021-09-12] MEDS ORDERED: Lactated Ringers 1,000 ML IV ONE (02:16)
--- NOTE | 2021-09-12 07:39 | CR ---
Chest: Portable view of the chest was obtained. Comparison: Prior chest x-ray of 06/20/[address] study of 06/20/21. Pleural thickening is seen within the right chest which is stable from prior exams. Areas of scarring noted within the right lung base which are also stable from prior study. There is slight increased density noted within the left chest most likely representing chronic change. Previous rib fractures are noted. Chronic rotator cuff tear is seen within both shoulders. Scattered degenerative change is seen within the spine. Impression: 1. Numerous findings as noted above. 2. Nothing acute is definitely appreciated. Diagnostic code #2
--- NOTE | 2021-09-12 08:03 | CT ---
Head CT Technique: Multiple axial sections through the brain were obtained. Intravenous contrast was not utilized. Comparison: No prior intracranial imaging is available. Findings: Ventricles along with basal cisterns and sulci over the convexities are increased. Mild areas of diminished density noted within the periventricular white matter most likely due to small vessel ischemic demyelination change. Slight artifact is felt to cause diminished density within the right cerebellar hemisphere. Basal ganglia calcification is noted. There is no evidence of intracranial hemorrhage. No midline shift or mass-effect is appreciated. Bone window settings show no acute abnormality within the visualized mastoid sinuses or paranasal sinuses. Mild atherosclerotic calcification is noted within the carotid siphon. No acute calvarial abnormality is appreciated. Impression: 1. Diffuse senescent change as described above. 2. No acute intracranial abnormality is appreciated. Diagnostic code #2 I agree with preliminary report from [facility], finalized on 09/12/21, 12:09 AM CDT, code 1.
--- NOTE | 2021-09-12 11:58 | PCM.HP.2 ---
H&P History of Present Illness - General Date of Service: 09/12/21 Admit Problem/Dx: Admission Diagnosis/Problem Admission Diagnosis/Problem Renal failure, hypotensive shock, metabolic acidosis, hyperkalemia Source of Information: EMS Notes Reviewed, Old Records History Limitations: Reports: Other (Patient obtunded) - History of Present Illness Initial Comments - Free Text/Narative: The patient is an 81-year-old gentleman who had presented to the emergency department with his family from [facility]. It was reported that the patient had become more weak lately. The alf apparently found him on the floor next to his wheelchair. Patient is obtunded. He is nonverbal and not responsive to commands. The patient is unable to participate in any meaningful way with his history and physical and family members are not available at this time. Information has been obtained from the patient's medical charts and previous visits. The family was concerned about palliative care and there were some questions about whether or not the patient would need to have dialysis or intubation. For now the patient is DNR/DNI and family is apparently not wanting dialysis. The patient was retained in the emergency department over 12 hours due to no available beds. Onset of Symptoms: Reports: Unknown/Unsure Duration of Symptoms: Reports: Getting Worse Improves with: Reports: None Worsens with: Reports: None - Related Data Allergies/Adverse Reactions: Allergies Allergy/AdvReac Type Severity Reaction Status Date / Time amlodipine Allergy Cannot Verified 06/20/21 22:32 Remember amlodipine besylate Allergy Cannot Verified 06/20/21 22:32 [From [facility]] Remember Home Medications: Home Meds Acetaminophen [Tylenol Arthritis Pain] 650 mg PO BID 02/19/16 [History] Acetaminophen [Tylenol Arthritis Pain] 650 mg PO Q8H PRN 02/19/16 [History] Calcium Carbonate/Vitamin D3 [Calcium 600-Vit D3 400 Tablet] 1 each PO BID 02/19/16 [History] Fluticasone Propionate [Flonase] 1 spray NASBOTH DAILY 02/19/16 [History] Glucosamine/D3/Boswellia Miri [Osteo Bi-Flex Caplet] 1 each PO DAILY 02/19/16 [History] Labetalol [Normodyne] 100 mg PO BID 02/19/16 [History] Levothyroxine Sodium [Synthroid] 125 mcg PO DAILY 02/19/16 [History] Meloxicam 15 mg PO DAILY 02/19/16 [History] Multivitamin [Multivitamins] 1 each PO DAILY 02/19/16 [History] Carboxymethylcellulose Sodium [Artificial Tears] 15 ml EYEBOTH QID 06/20/21 [History] Cyanocobalamin (Vitamin B-12) [Vitamin B-12] 1 tab PO DAILY 06/20/21 [History] Furosemide [Lasix] 40 mg PO BID 06/20/21 [History] Mirtazapine [Remeron] 15 mg PO BEDTIME 06/20/21 [History] Tiotropium [place] [Spiriva Respimat] 2 puff IH DAILY 06/20/21 [History] Glucosamine/D3/Boswellia Miri [Osteo Bi-Flex Tablet] 1 each PO BID 06/21/21 [History] QUEtiapine Fumarate [Seroquel] 25 mg PO BEDTIME #30 tablet 06/27/21 [Rx] fentaNYL [Duragesic] 75 mcg TD Q72H #5 patch 06/27/21 [Rx] Past Medical History - Past Health History Medical/Surgical History: Denies Medical/Surgical History HEENT History: Reports: Hard of Hearing, Impaired Vision 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 mass on lung- monitoring and pts daughter states it has remained unchanged. Genitourinary History: Reports: Other (See Below) Other Genitourinary History: pts daughter states they're watching his kidney labs and recheck in 1 week from today to monitor kidney function Musculoskeletal History: Reports: Arthritis, Back Pain, Chronic, Other (See Below) Other Musculoskeletal History: DJD Neurological History: Reports: Other (See Below) Other Neuro History: Dementia. 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 Psychiatric History: Reports: Dementia Endocrine/Metabolic History: Reports: Hypothyroidism Oncologic (Cancer) History: Reports: Other (See Below) Other Oncologic History: lung nodule- that pcp is monitoring Dermatologic History: Reports: Other (See Below) Other Dermatologic History: brown discoloration to bilateral legs - Infectious Disease History Infectious Disease History: Reports: Chicken Pox, Measles, Mumps, Novel Melchor virus Social & Family History - Family History Cardiac: Reports: Pacemaker GI: Reports: Other (See Below) Other GI Family History: STOMACH CANCER - Tobacco Use Tobacco Use Status *Q: Never Tobacco User - Caffeine Use Caffeine Use: Reports: Coffee, Soda - Recreational Drug Use Recreational Drug Use: No - Living Situation & Occupation Living situation: Reports: , Extended Care Facility Occupation: Retired H&P Review of Systems - Review of Systems: Review Of Systems: Unable To Obtain Reason Not Obtained: Patient obtunded, not responsive and nonverbal. Exam - Exam Exam: See Below - Vital Signs Vital Signs: Last Vital Signs Temp 36.3 C 09/11/21 21:06 Pulse 73 09/12/21 09:00 Resp 10 L 09/12/21 09:00 BP 66/51 L 09/12/21 09:00 Pulse Ox 97 09/12/21 09:00 Weight: 63.503 kg - Exam Quality Assessment: Supplemental Oxygen. No: DVT Prophylaxis General: Obtunded. No: Alert, Oriented HEENT: Conjunctiva Clear. No: Mucosa Moist & [place], Pupils Equal (Right pupil scarred over) Neck: Supple, Trachea Midline Lungs: Decreased Breath Sounds, Crackles (Very loud, gurgling noises) Cardiovascular: Regular Rate, Regular Rhythm GI/Abdominal Exam: Normal Bowel Sounds, Soft (No reaction to palpation), No Distention (Male) Exam: Deferred Rectal (Males) Exam: Deferred Back Exam: No: Normal Inspection (Patient obtunded) Extremities: Pedal Edema. No: Normal Inspection Skin: Warm, Dry, Intact Psychiatric: No: Alert, Normal Affect - Patient Data Lab Results Last 24 hrs: Laboratory Results - last 24 hr 09/11/21 09/11/21 09/12/21 Range/Units 21:16 21:16 03:05 WBC 5.87 (4.23-9.07) K/mm3 RBC 3.43 L (4.63-6.08) M/mm3 Hgb 10.4 L (13.7-17.5) gm/dl Hct 32.7 L (40.1-51.0) % MCV 95.3 H D (79.0-92.2) fl MCH 30.3 (25.7-32.2) pg MCHC 31.8 L (32.2-35.5) g/dl RDW Std Deviation 45.4 H (35.1-43.9) fL Plt Count 137 L D (163-337) K/mm3 MPV 10.6 (9.4-12.3) fl Neut % (Auto) 77.8 H (34.0-67.9) % Lymph % (Auto) 9.7 L (21.8-53.1) % [place] % (Auto) 8.9 (5.3-12.2) % Eos % (Auto) 3.1 (0.8-7.0) Baso % (Auto) 0.3 (0.1-1.2) % Neut # (Auto) 4.57 (1.78-5.38) K/mm3 Lymph # (Auto) 0.57 L (1.32-3.57) K/mm3 [place] # (Auto) 0.52 (0.30-0.82) K/mm3 Eos # (Auto) 0.18 (0.04-0.54) K/mm3 Baso # (Auto) 0.02 (0.01-0.08) K/mm3 Sodium 136 139 (136-145) mEq/L Potassium 6.9 H* 5.2 H D (3.5-5.1) mEq/L Chloride 105 108 H (98-107) mEq/L Carbon Dioxide 21 19 L (21-32) mEq/L Anion Gap 16.9 H 17.2 H (5-15) BUN 70 H D 67 H (7-18) mg/dL Creatinine 4.3 H D 4.0 H (0.7-1.3) mg/dL Est Cr Clr Drug Dosing 11.69 12.57 mL/min Estimated GFR (MDRD) 13 14 (>60) mL/min BUN/Creatinine Ratio 16.3 16.8 (14-18) Glucose 113 H 56 L (70-99) mg/dL Calcium 7.5 L 7.4 L (8.5-10.1) mg/dL Total Bilirubin 0.4 0.4 (0.2-1.0) mg/dL AST 17 12 L (15-37) U/L ALT 16 12 L (16-63) U/L Alkaline Phosphatase 162 H 129 H (46-116) U/L Troponin I < 0.017 (0.00-0.056) ng/mL C-Reactive Protein 19.7 H* (<1.0) mg/dL Total Protein 5.8 L 5.1 L (6.4-8.2) g/dl Albumin 2.4 L 1.9 L (3.4-5.0) g/dl Globulin 3.4 3.2 gm/dL Albumin/Globulin Ratio 0.7 L 0.6 L (1-2) Urine Color (Yellow) Urine Appearance (Clear) Urine pH (5.0-8.0) Ur Specific [place] (1.005-1.030) Urine Protein (Negative) Urine Glucose (UA) (Negative) Urine Ketones (Negative) Urine Occult Blood (Negative) Urine Nitrite (Negative) Urine Bilirubin (Negative) Urine Urobilinogen (0.2-1.0) Ur Leukocyte Esterase (Negative) U Hyaline Cast (Auto) (0-5) /lpf Urine RBC (0-5) /hpf Urine WBC (0-5) /hpf Ur Squamous Epith Cells (0-5) /hpf Urine Bacteria (FEW) /hpf Urine Mucus (FEW) /hpf 09/12/21 09/12/21 Range/Units 06:15 06:21 WBC (4.23-9.07) K/mm3 RBC (4.63-6.08) M/mm3 Hgb (13.7-17.5) gm/dl Hct (40.1-51.0) % MCV (79.0-92.2) fl MCH (25.7-32.2) pg MCHC (32.2-35.5) g/dl RDW Std Deviation (35.1-43.9) fL Plt Count (163-337) K/mm3 MPV (9.4-12.3) fl Neut % (Auto) (34.0-67.9) % Lymph % (Auto) (21.8-53.1) % [place] % (Auto) (5.3-12.2) % Eos % (Auto) (0.8-7.0) Baso % (Auto) (0.1-1.2) % Neut # (Auto) (1.78-5.38) K/mm3 Lymph # (Auto) (1.32-3.57) K/mm3 [place] # (Auto) (0.30-0.82) K/mm3 Eos # (Auto) (0.04-0.54) K/mm3 Baso # (Auto) (0.01-0.08) K/mm3 Sodium 137 (136-145) mEq/L Potassium 5.4 H (3.5-5.1) mEq/L Chloride 108 H (98-107) mEq/L Carbon Dioxide 16 L (21-32) mEq/L Anion Gap 18.4 H (5-15) BUN 65 H (7-18) mg/dL Creatinine 3.8 H (0.7-1.3) mg/dL Est Cr Clr Drug Dosing 13.23 mL/min Estimated GFR (MDRD) 15 (>60) mL/min BUN/Creatinine Ratio 17.1 (14-18) Glucose 88 (70-99) mg/dL Calcium 7.3 L (8.5-10.1) mg/dL Total Bilirubin 0.3 (0.2-1.0) mg/dL AST 13 L (15-37) U/L ALT 14 L (16-63) U/L Alkaline Phosphatase 143 H (46-116) U/L Troponin I (0.00-0.056) ng/mL C-Reactive Protein (<1.0) mg/dL Total Protein 5.4 L (6.4-8.2) g/dl Albumin 2.0 L (3.4-5.0) g/dl Globulin 3.4 gm/dL Albumin/Globulin Ratio 0.6 L (1-2) Urine Color Yellow (Yellow) Urine Appearance Clear (Clear) Urine pH 6.0 (5.0-8.0) Ur Specific [place] 1.020 (1.005-1.030) Urine Protein Trace H (Negative) Urine Glucose (UA) Negative (Negative) Urine Ketones Negative (Negative) Urine Occult Blood Negative (Negative) Urine Nitrite Negative (Negative) Urine Bilirubin Negative (Negative) Urine Urobilinogen 0.2 (0.2-1.0) Ur Leukocyte Esterase Negative (Negative) U Hyaline Cast (Auto) 10-20 H (0-5) /lpf Urine RBC Not seen (0-5) /hpf Urine WBC 0-5 (0-5) /hpf Ur Squamous Epith Cells 0-5 (0-5) /hpf Urine Bacteria Few (FEW) /hpf Urine Mucus Few (FEW) /hpf Result Diagrams: 09/11/21 21:16 09/12/21 06:15 Sepsis Event Note - Evaluation Sepsis Screening Result: No Definite Risk - Focused Exam Vital Signs: Vital Signs Pulse Resp BP Pulse Ox Pulse Ox 09/12/21 09:00 73 10 L 66/51 L 97 09/12/21 06:54 81 83/65 L 09/12/21 03:24 86 64/41 L 96 09/12/21 00:18 95 *Q Meaningful Use (ADM) - VTE *Q VTE Mechanical Contraindications *Q: At Risk for Falls - Problem List (1) Hypotension SNOMED Code(s): 62264506 ICD Code: I95.9 - HYPOTENSION, UNSPECIFIED Status: Acute Priority: High Current Visit: Yes Problem Details: Patient's family did not want vasopressors Qualifiers: Hypotension type: other hypotension type (2) Renal failure SNOMED Code(s): 15651086 ICD Code: N19 - UNSPECIFIED KIDNEY FAILURE Status: Acute Current Visit: Yes Qualifiers: Renal failure chronicity: acute Acute renal failure type: unspecified Qualified Code(s): N17.9 - Acute kidney failure, unspecified (3) Hyperkalemia SNOMED Code(s): 25267040 ICD Code: E87.5 - HYPERKALEMIA Status: Acute Current Visit: Yes Problem List Initiated/Reviewed/Updated: Yes Orders Last 24hrs: Active Orders 24 hr Category Date Time Status Admission Status [Patient Status] [ADT] Routine ADT 09/12/21 11:42 Active Bedrest Bedside Commode [RC] ASDIRECTED Care 09/12/21 11:56 Ordered Cardiac Monitoring [RC] . DIRECTED Care 09/11/21 21:07 Active Cardiac Monitoring [RC] CONTINUOUS Care 09/12/21 11:57 Ordered Oxygen Therapy [RC] PRN Care 09/12/21 11:56 Ordered Peripheral IV Care [RC] . DIRECTED Care 09/11/21 21:07 Active RT Aerosol Therapy [RC] ASDIRECTED Care 09/11/21 23:58 Active VTE/DVT Education [RC] PER UNIT ROUTINE Care 09/12/21 11:56 Ordered Vital Signs [RC] Q4H Care 09/12/21 11:56 Ordered Nothing per Oral Now Diet [DIET] Diet 09/12/21 Dinner Ordered Sodium Chloride 0.9% [Normal Saline] 1,000 ml Med 09/11/21 21:15 Active IV .BOLUS Sodium Chloride 0.9% [Saline Flush] Med 09/11/21 21:07 Active 10 ml FLUSH ASDIRECTED PRN Comfort Measures [OM.PC] Routine Oth 09/12/21 09:18 Ordered Peripheral IV Insertion Adult [OM.PC] Stat Oth 09/11/21 21:07 Ordered VTE Mechanical Contraindications [AST] Per Unit Routine Oth 09/12/21 11:56 Ordered Resuscitation Status Routine Resus Stat 09/12/21 11:56 Ordered Medication Orders Sodium Chloride (Normal Saline) 1,000 mls @ 1,000 mls/hr IV .BOLUS BLAYNE Last Admin: 09/11/21 21:18 Dose: 1,000 mls/hr Documented by: CARLOS Sodium Chloride (Sodium Chloride 0.9% 10 Ml Syringe) 10 ml FLUSH ASDIRECTED PRN PRN Reason: Keep Vein Open Last Admin: 09/11/21 21:18 Dose: 10 ml Documented by: CARLOS Assessment/Plan Comment:: The patient is an 81-year-old gentleman who has been admitted essentially for palliative care measures. Family members are not available to speak with however there was some indication that the patient was not wanting to go to hospice. Overall the patient's condition at this point is grave. This is due to the patient's hypotensive shock. No indications of sepsis at this point. Fluid resuscitation should be gentle. Fluid overload is a concern. If the patient survives will consider ordering laboratory test in the morning to check his electrolytes as well as his metabolic acidosis. Overall prognosis at this point is grave. - Mortality Measure Prognosis:: Poor
[2021-09-12] MEDS ORDERED: Scopolamine 1.5 MG Transdermal Patch TOP ONE (13:30)
[2021-09-12] MEDS ORDERED: LORazepam 2 MG/ML SDV IVPUSH PRN (16:55)
[2021-09-12] MEDS ORDERED: Morphine 2 MG/ML SYRINGE IVPUSH PRN (16:57)
[2021-09-12] MEDS ORDERED: fentaNYL 100 MCG/HR Transdermal Patch TOP SCH (18:15)
[2021-09-12] MEDS: Morphine 2 MG/ML SYRINGE IVPUSH PRN (19:59)
[2021-09-12] MEDS ORDERED: LORazepam 2 MG/ML SDV ONE (21:24)
[2021-09-12] MEDS: LORazepam 2 MG/ML SDV IVPUSH PRN (21:32)
[2021-09-13] MEDS: Morphine 2 MG/ML SYRINGE IVPUSH PRN ×5 (01:16→22:56)
[2021-09-13] MEDS: Lactated Ringers 1,000 ML IV SCH ×2 (02:13→21:31)
--- NOTE | 2021-09-13 07:06 | PCM.PN ---
- General Info Date of Service: 09/13/21 Admission Dx/Problem (Free Text): Admission Diagnosis/Problem Admission Diagnosis/Problem Renal failure, hypotensive shock, metabolic acidosis, hyperkalemia Subjective Update: The patient is an 81-year-old gentleman who was admitted yesterday due to weakness and overall decline. It was reported that the patient had become more weak lately. The senior living apparently found him on the floor next to his wheelchair. Patient is obtunded. He is not able to communicate and not responsive. The patients daughter is in the room. The patient's fentanyl patch was changed and according to the daughter he has been much more comfortable overnight. Functional Status: Reports: Pain Controlled. Denies: Tolerating Diet (Currently n.p.o.) - Review of Systems Systems Review Comment:: The patient is obtunded and noncommunicative - Patient Data Vitals - Most Recent: Last Vital Signs Temp 36.9 C 09/13/21 04:27 Pulse 85 09/13/21 04:27 Resp 32 H 09/13/21 04:27 BP 97/56 L 09/13/21 04:27 Pulse Ox 97 09/13/21 04:27 Weight - Most Recent: 75.387 kg I&O - Last 24 Hours: Intake & Output 09/12/21 09/13/21 09/13/21 22:59 06:59 14:59 Intake Total 100 Balance 100 Lab Results Last 24 Hours: Laboratory Results - last 24 hr 09/12/21 Range/Units 13:09 MRSA (PCR) Negative Med Orders - Current: Current Medications Fentanyl (Fentanyl 100 Mcg/Hr Transdermal Patch) 100 mcg TOP Q3D@0900 [facility] [place] Last Admin: 09/12/21 18:32 Dose: 100 mcg Documented by: Lactated Ringer's (Ringers, Lactated) 1,000 mls @ 50 mls/hr IV ASDIRECTED [facility] [place] Last Admin: 09/13/21 02:13 Dose: 50 mls/hr Documented by: Lorazepam (Lorazepam 2 Mg/Ml Sdv) 1 mg IVPUSH Q4H PRN PRN Reason: Anxiety Last Admin: 09/12/21 21:32 Dose: 1 mg Documented by: Miscellaneous Information (Remove Scopolamine Patch) 1 ea TRDERM ONETIME ONE Stop: 09/15/21 13:31 Miscellaneous Information (Remove Fentanyl Patch) 1 ea TRDERM Q3D@0900 [facility] [place] Last Admin: 09/12/21 18:33 Dose: 1 ea Documented by: Morphine Sulfate (Morphine 2 Mg/Ml Syringe) 2 mg IVPUSH Q2H PRN PRN Reason: Agitation Last Admin: 09/13/21 01:16 Dose: 2 mg Documented by: Sodium Chloride (Sodium Chloride 0.9% 10 Ml Syringe) 10 ml FLUSH ASDIRECTED PRN PRN Reason: Keep Vein Open Last Admin: 09/11/21 21:18 Dose: 10 ml Documented by: Discontinued Medications Albuterol (Albuterol 0.083% 2.5 Mg/3 Ml Neb Soln) 2.5 mg NEB ONETIME ONE Stop: 09/11/21 23:59 Last Admin: 09/12/21 00:17 Dose: 2.5 mg Documented by: Calcium Gluconate (Calcium Gluconate 10% 1 Gm/10 Ml Sdv) 1 gm IVPUSH ONETIME ONE Stop: 09/12/21 00:00 Last Admin: 09/12/21 00:24 Dose: 1 gm Documented by: Dextrose/Water (50% Dextrose In Water 50 Ml Syringe) 50 ml IVPUSH ONETIME ONE Stop: 09/12/21 00:00 Last Admin: 09/12/21 00:24 Dose: 50 ml Documented by: Sodium Chloride (Normal Saline) 1,000 mls @ 1,000 mls/hr IV .BOLUS [facility] [place] Last Admin: 09/11/21 21:18 Dose: 1,000 mls/hr Documented by: Lactated Ringer's (Ringers, Lactated) 1,000 mls @ 1,000 mls/hr IV .BOLUS ONE Stop: 09/12/21 00:57 Last Admin: 09/12/21 00:25 Dose: 1,000 mls/hr Documented by: Lactated Ringer's (Ringers, Lactated) 1,000 mls @ 1,000 mls/hr IV .BOLUS ONE Stop: 09/12/21 03:15 Last Admin: 09/12/21 02:20 Dose: 1,000 mls/hr Documented by: Insulin Human Regular (Insulin Regular, Human 100 Units/Ml 3 Ml Vial) 10 unit SUBCUT ONETIME ONE Stop: 09/12/21 00:01 Last Admin: 09/12/21 00:24 Dose: 10 unit Documented by: Lorazepam (Lorazepam 2 Mg/Ml Sdv) 1 mg IVPUSH ONETIME ONE Stop: 09/12/21 01:27 Last Admin: 09/12/21 01:29 Dose: 1 mg Documented by: Lorazepam (Lorazepam 2 Mg/Ml Sdv) 0.5 mg IVPUSH Q6H PRN PRN Reason: Agitation Last Admin: 09/12/21 17:28 Dose: 0.5 mg Documented by: Lorazepam (Lorazepam 2 Mg/Ml Sdv) Confirm Administered Dose 2 mg .ROUTE .STK-MED ONE Stop: 09/12/21 21:25 Last Admin: 09/12/21 21:42 Dose: Not Given Documented by: Morphine Sulfate (Morphine 2 Mg/Ml Syringe) 2 mg IVPUSH Q4H PRN PRN Reason: Pain Last Admin: 09/12/21 17:54 Dose: 2 mg Documented by: Quetiapine Fumarate (Quetiapine 25 Mg Tab) 25 mg PO ONETIME ONE Stop: 09/11/21 23:21 Last Admin: 09/11/21 23:41 Dose: 25 mg Documented by: Scopolamine (Scopolamine 1.5 Mg Transdermal Patch) 1.5 mg TOP ONETIME ONE Stop: 09/12/21 13:31 Last Admin: 09/12/21 14:40 Dose: 1.5 mg Documented by: Sodium Polystyrene Sulfonate (Sodium Polystyrene Sulfonate 15 Gm/60 Ml Susp 60 Ml Bot) 45 gm PO NOW ONE Stop: 09/11/21 23:59 Last Admin: 09/12/21 00:25 Dose: 45 gm Documented by: - Exam Quality Assessment: Supplemental Oxygen. No: DVT Prophylaxis General: No: Alert, Oriented HEENT: No: Pupils Equal, Pupils Reactive (Right eye blind), Mucous Membr. Moist/Tool (Dry) Neck: Supple, Trachea Midline Lungs: Clear to Auscultation, Normal Respiratory Effort Cardiovascular: Regular Rate, Regular Rhythm GI/Abdominal Exam: Normal Bowel Sounds, Soft (No reaction to palpation), No Distention (Male) Exam: Deferred Back Exam: No: Normal Inspection (Appropriate for age and bedridden condition) Extremities: No: Normal Inspection Skin: Warm, Dry, Intact Neurological: No New Focal Deficit. No: Normal Speech Psy/Mental Status: No: Alert - Patient Data Lab Results Last 24 hrs: Laboratory Results - last 24 hr 09/12/21 Range/Units 13:09 MRSA (PCR) Negative Result Diagrams: 09/11/21 21:16 09/12/21 06:15 Sepsis Event Note - Evaluation Sepsis Screening Result: No Definite Risk - Focused Exam Vital Signs: Vital Signs Temp Pulse Resp BP Pulse Ox Pulse Ox 09/13/21 04:27 36.9 C 85 32 H 97/56 L 97 09/13/21 00:05 37.1 C 85 22 H 83/46 L 95 09/12/21 21:30 100 100 09/12/21 21:29 96/67 09/12/21 19:44 36.4 C 79 55/24 L 94 L - Problem List & Annotations (1) Hypotension SNOMED Code(s): 49357887 Code(s): I95.9 - HYPOTENSION, UNSPECIFIED Status: Acute Priority: High Current Visit: Yes Qualifiers: Hypotension type: other hypotension type Qualified Code(s): I95.89 - Other hypotension Annotation/Comment:: Patient's family did not want vasopressors (2) Renal failure SNOMED Code(s): 86910890 Code(s): N19 - UNSPECIFIED KIDNEY FAILURE Status: Acute Current Visit: Yes Qualifiers: Renal failure chronicity: acute Acute renal failure type: unspecified Qualified Code(s): N17.9 - Acute kidney failure, unspecified (3) Hyperkalemia SNOMED Code(s): 38251390 Code(s): E87.5 - HYPERKALEMIA Status: Acute Current Visit: Yes - Problem List Review Problem List Initiated/Reviewed/Updated: Yes - My Orders Last 24 Hours: My Active Orders 09/12/21 11:56 Bedrest Bedside Commode [RC] BID Oxygen Therapy [RC] PRN VTE/DVT Education [RC] PER UNIT ROUTINE Vital Signs [RC] Q4HR VTE Mechanical Contraindications [AST] Per Unit Routine Resuscitation Status Routine 09/12/21 Dinner Nothing per Oral Now Diet [DIET] 09/12/21 17:15 Lactated Ringers [Ringers, Lactated] 1,000 ml IV ASDIRECTED 09/12/21 18:15 fentaNYL [Duragesic] 100 mcg TOP Q3D@0900 09/12/21 18:19 Morphine 2 mg IVPUSH Q2H PRN 09/12/21 18:30 Remove Patch 1 ea TRDERM Q3D@0900 09/12/21 21:21 LORazepam [Ativan] 1 mg IVPUSH Q4H PRN 09/15/21 13:30 Remove Patch 1 ea TRDERM ONETIME ONE - Plan Plan:: The patient is an 81-year-old gentleman who has been admitted essentially for palliative care measures. Family members are not available to speak with however there was some indication that the patient was not wanting to go to hospice. Overall the patient's condition at this point is grave. This is due to the patient's hypotensive shock. No indications of sepsis at this point. Fluid resuscitation should be gentle. Fluid overload is a concern. If the patient survives will consider ordering laboratory test in the morning to check his electrolytes as well as his metabolic acidosis. Overall prognosis at this point is grave. 09/13/2021 The patient is an 81-year-old gentleman who is doing somewhat better today. His comfort measures have been addressed. The patient will continue with the scopolamine patch for oral secretions. He also has morphine in addition to his fentanyl patch. I have ordered minimal fluid resuscitation of Ringer's lactated at 50 mL/h. I have explained to the patient's daughter the likely outcome of his condition. Overall, the patient's prognosis remains grave and I have also recommended no further testing.
[2021-09-13] MEDS: LORazepam 2 MG/ML SDV IVPUSH PRN ×3 (12:05→22:57)
[2021-09-14] MEDS: Morphine 2 MG/ML SYRINGE IVPUSH PRN ×8 (00:39→13:26)
[2021-09-14 08:21] VITALS: BP 134/70; PULSE 89
[2021-09-14] MEDS: LORazepam 2 MG/ML SDV IVPUSH PRN (09:41)
[2021-09-14] MEDS ORDERED: diphenhydrAMINE 50 MG/ML SDV IVPUSH ONE (10:27)
[2021-09-14] MEDS ORDERED: Metoclopramide 10 MG/2 ML SDV IVPUSH ONE (10:27)
--- NOTE | 2021-09-14 12:22 | PCM.DCSUM1 ---
<Josee Almonte - Last Filed: 09/14/21 12:30> Discharge Summary - Hospital Course HPI Initial Comments: 81-year-old male who had presented to the emergency department from [facility]. Patient was not verbal or responsive to commands. It was reported that he has become more weak as of lately and nursing staff found him on the floor next to his wheelchair this morning. There is no family members at the bedside at the time of admit to the medical floor and information was obtained from the patient's medical charts and previous visits. Lab studies did reveal that the patient was found to be in renal failure. Patient also does have a significant medical history of dementia. Once family was contacted and the case was discussed with them, family requested the patient be a DNR/DNI and placed on comfort measures. He did remain in the hospital x2 days and subseq uently on the day of discharge was awake and alert however was very confused. [facility]. Diagnosis: Stroke: No - Discharge Data Discharge Date: 09/14/21 Discharge Disposition: DC/Tfer to SNF 03 Condition: Poor - Referral to Home Health Primary Care Physician: Himanshu Underwood MD - Discharge Diagnosis/Problem(s) (1) Hyperkalemia SNOMED Code(s): 71500864 ICD Code: E87.5 - HYPERKALEMIA Status: Acute Priority: High (2) Hypotension SNOMED Code(s): 12965770 ICD Code: I95.9 - HYPOTENSION, UNSPECIFIED Status: Acute Priority: High Problem Details: Patient's family did not want vasopressors Qualifiers: Hypotension type: other hypotension type Qualified Code(s): I95.89 - Other hypotension (3) Renal failure SNOMED Code(s): 13024769 ICD Code: N19 - UNSPECIFIED KIDNEY FAILURE Status: Acute Priority: High Qualifiers: Renal failure chronicity: acute Acute renal failure type: unspecified Qualified Code(s): N17.9 - Acute kidney failure, unspecified - Patient Summary/Data Hospital Course: 09/12/2021 The patient is an 81-year-old gentleman who has been admitted essentially for palliative care measures. Family members are not available to speak with beau liz there was some indication that the patient was not wanting to go to hospice. Overall the patient's condition at this point is grave. This is due to the patient's hypotensive shock. No indications of sepsis at this point. Fluid resuscitation should be gentle. Fluid overload is a concern. If the patient survives will consider ordering laboratory test in the morning to check his electrolytes as well as his metabolic acidosis. Overall prognosis at this point is grave. 09/13/2021 The patient is an 81-year-old gentleman who is doing somewhat better today. His comfort measures have been addressed. The patient will continue with the scopolamine patch for oral secretions. He also has morphine in addition to his fentanyl patch. I have ordered minimal fluid resuscitation of Ringer's lactated at 50 mL/h. I have explained to the patient's daughter the likely outcome of his condition. Overall, the patient's prognosis remains grave and I have also recommended no further testing. 09/14/2021 81-year-old male who is awake and alert today. However he is not oriented at all. Speech is garbled and difficult to understand. When I asked him if he knew where he was he told me he was fishing. Patient's daughter is at the bedside. Nursing staff reports that he has been more anxious and restless throughout the night. Again discussed the patient's prognosis with his daughter. Dr. Goldstein has ordered repeat lab work for today. Patient will then be discharged back to [facility] prison on comfort measures. - Patient Instructions Diet: Usual Diet as Tolerated Activity: As Tolerated - Discharge Plan Prescriptions/Med Rec: LORazepam [Ativan ORAL Concentrate 1MG/0.5 ML U/D] 1 mg PO Q4H PRN #1 ea PRN Reason: Anxiety Morphine Sulfate 10 mg PO Q4H PRN #1 bottle PRN Reason: Pain Scopolamine [Transderm-Scop] 1.5 mg TOP Q72H #5 patch Home Medications: Home Meds Carboxymethylcellulose Sodium [Artificial Tears] 1 drop EYEBOTH QID 06/20/21 [History] fentaNYL [Duragesic] 100 mcg TOP Q3D 09/12/21 [History] LORazepam [Ativan ORAL Concentrate 1MG/0.5 ML U/D] 1 mg PO Q4H PRN #1 ea 09/14/21 [Rx] Morphine Sulfate 10 mg PO Q4H PRN #1 bottle 09/14/21 [Rx] Remove Patch 1 ea TRDERM Q3D@0900 each 09/14/21 [Rx] Remove Patch 1 ea TRDERM Q72H each 09/14/21 [Rx] Scopolamine [Transderm-Scop] 1.5 mg TOP Q72H #5 patch 09/14/21 [Rx] Oxygen Therapy Mode: Room Air Forms: ED Department Discharge Referrals: Himanshu Lu MD [Primary Care Provider] - (Follow as needed with Dr. Lu per SNF policy) - Discharge Summary/Plan Comment DC Time >30 min.: No Total # of Minutes for Discharge Time: 25 - General Info Date of Service: 09/14/21 Admission Dx/Problem (Free Text: Admission Diagnosis/Problem Admission Diagnosis/Problem Renal failure, hypotensive shock, metabolic acidosis, hyperkalemia Functional Status: Reports: Pain Controlled, Urinating (Incontinent). Denies: Tolerating Diet (Patient was not eating as he has been unresponsive and on comfort measures.) - Review of Systems General: Reports: No Symptoms HEENT: Reports: No Symptoms Pulmonary: Reports: No Symptoms Cardiovascular: Reports: No Symptoms Gastrointestinal: Reports: No Symptoms Genitourinary: Reports: No Symptoms Musculoskeletal: Reports: No Symptoms Skin: Reports: No Symptoms Neurological: Reports: Confusion (Dementia) Psychiatric: Reports: Confusion (Underlying dementia) - Patient Data Vitals - Most Recent: Last Vital Signs Temp 99.9 F 09/14/21 08:11 Pulse 89 09/14/21 08:11 Resp 22 H 09/14/21 08:11 BP 134/70 09/14/21 08:11 Pulse Ox 96 09/14/21 08:11 Weight - Most Recent: 75.387 kg I&O - Last 24 hours: Intake & Output 09/13/21 09/14/21 09/14/21 22:59 06:59 14:59 Intake Total 0 616 Output Total 0 Balance 0 616 Lab Results - Last 24 hrs: Laboratory Results - last 24 hr 09/14/21 09/14/21 Range/Units 09:11 09:11 WBC 6.36 (4.23-9.07) K/mm3 RBC 3.61 L (4.63-6.08) M/mm3 Hgb 10.9 L (13.7-17.5) gm/dl Hct 33.9 L (40.1-51.0) % MCV 93.9 H (79.0-92.2) fl MCH 30.2 (25.7-32.2) pg MCHC 32.2 (32.2-35.5) g/dl RDW Std Deviation 46.0 H (35.1-43.9) fL Plt Count 152 L (163-337) K/mm3 MPV 9.7 (9.4-12.3) fl Neut % (Auto) 69.9 H (34.0-67.9) % Lymph % (Auto) 15.7 L (21.8-53.1) % [place] % (Auto) 10.7 (5.3-12.2) % Eos % (Auto) 2.5 (0.8-7.0) Baso % (Auto) 0.9 (0.1-1.2) % Neut # (Auto) 4.44 (1.78-5.38) K/mm3 Lymph # (Auto) 1.00 L (1.32-3.57) K/mm3 [place] # (Auto) 0.68 (0.30-0.82) K/mm3 Eos # (Auto) 0.16 (0.04-0.54) K/mm3 Baso # (Auto) 0.06 (0.01-0.08) K/mm3 Sodium 147 H D (136-145) mEq/L Potassium 4.4 (3.5-5.1) mEq/L Chloride 117 H (98-107) mEq/L Carbon Dioxide 15 L (21-32) mEq/L Anion Gap 19.4 H (5-15) BUN 45 H (7-18) mg/dL Creatinine 2.1 H D (0.7-1.3) mg/dL Est Cr Clr Drug Dosing 27.52 mL/min Estimated GFR (MDRD) 30 (>60) mL/min BUN/Creatinine Ratio 21.4 H (14-18) Glucose 72 (70-99) mg/dL Calcium 8.0 L (8.5-10.1) mg/dL Total Bilirubin 0.8 (0.2-1.0) mg/dL AST 18 (15-37) U/L ALT 17 (16-63) U/L Alkaline Phosphatase 182 H (46-116) U/L Total Protein 5.8 L (6.4-8.2) g/dl Albumin 2.3 L (3.4-5.0) g/dl Globulin 3.5 gm/dL Albumin/Globulin Ratio 0.7 L (1-2) Med Orders - Current: Current Medications Fentanyl (Fentanyl 100 Mcg/Hr Transdermal Patch) 100 mcg TOP Q3D@0900 [facility] Last Admin: 09/12/21 18:32 Dose: 100 mcg Documented by: Lactated Ringer's (Ringers, Lactated) 1,000 mls @ 50 mls/hr IV ASDIRECTED [facility] Last Admin: 09/13/21 21:31 Dose: 50 mls/hr Documented by: Lorazepam (Lorazepam 2 Mg/Ml Sdv) 1 mg IVPUSH Q4H PRN PRN Reason: Anxiety Last Admin: 09/14/21 09:41 Dose: 1 mg Documented by: Miscellaneous Information (Remove Scopolamine Patch) 1 ea TRDERM ONETIME ONE Stop: 09/15/21 13:31 Miscellaneous Information (Remove Fentanyl Patch) 1 ea TRDERM Q3D@0900 [facility] Last Admin: 09/12/21 18:33 Dose: 1 ea Documented by: Miscellaneous Information (Remove Patch Scopolamine) 1 ea TRDERM Q72H [facility] Morphine Sulfate (Morphine 2 Mg/Ml Syringe) 2 mg IVPUSH Q1H PRN PRN Reason: Pain Last Admin: 09/14/21 12:18 Dose: 2 mg Documented by: Scopolamine (Scopolamine 1.5 Mg Transdermal Patch) 1.5 mg TOP Q72H [facility] Sodium Chloride (Sodium Chloride 0.9% 10 Ml Syringe) 10 ml FLUSH ASDIRECTED PRN PRN Reason: Keep Vein Open Last Admin: 09/11/21 21:18 Dose: 10 ml Documented by: Discontinued Medications Albuterol (Albuterol 0.083% 2.5 Mg/3 Ml Neb Soln) 2.5 mg NEB ONETIME ONE Stop: 09/11/21 23:59 Last Admin: 09/12/21 00:17 Dose: 2.5 mg Documented by: Calcium Gluconate (Calcium Gluconate 10% 1 Gm/10 Ml Sdv) 1 gm IVPUSH ONETIME ONE Stop: 09/12/21 00:00 Last Admin: 09/12/21 00:24 Dose: 1 gm Documented by: Dextrose/Water (50% Dextrose In Water 50 Ml Syringe) 50 ml IVPUSH ONETIME ONE Stop: 09/12/21 00:00 Last Admin: 09/12/21 00:24 Dose: 50 ml Documented by: Diphenhydramine HCl (Diphenhydramine 50 Mg/Ml Sdv) 25 mg IVPUSH ONETIME ONE Stop: 09/14/21 10:28 Last Admin: 09/14/21 10:36 Dose: 25 mg Documented by: Sodium Chloride (Normal Saline) 1,000 mls @ 1,000 mls/hr IV .[facility]OL[facility] Last Admin: 09/11/21 21:18 Dose: 1,000 mls/hr Documented by: Lactated Ringer's (Ringers, Lactated) 1,000 mls @ 1,000 mls/hr IV .BOLUS ONE Stop: 09/12/21 00:57 Last Admin: 09/12/21 00:25 Dose: 1,000 mls/hr Documented by: Lactated Ringer's (Ringers, Lactated) 1,000 mls @ 1,000 mls/hr IV .BOLUS ONE Stop: 09/12/21 03:15 Last Admin: 09/12/21 02:20 Dose: 1,000 mls/hr Documented by: Insulin Human Regular (Insulin Regular, Human 100 Units/Ml 3 Ml Vial) 10 unit SUBCUT ONETIME ONE Stop: 09/12/21 00:01 Last Admin: 09/12/21 00:24 Dose: 10 unit Documented by: Lorazepam (Lorazepam 2 Mg/Ml Sdv) 1 mg IVPUSH ONETIME ONE Stop: 09/12/21 01:27 Last Admin: 09/12/21 01:29 Dose: 1 mg Documented by: Lorazepam (Lorazepam 2 Mg/Ml Sdv) 0.5 mg IVPUSH Q6H PRN PRN Reason: Agitation Last Admin: 09/12/21 17:28 Dose: 0.5 mg Documented by: Lorazepam (Lorazepam 2 Mg/Ml Sdv) Confirm Administered Dose 2 mg .ROUTE .STK-MED ONE Stop: 09/12/21 21:25 Last Admin: 09/12/21 21:42 Dose: Not Given Documented by: Metoclopramide HCl (Metoclopramide 10 Mg/2 Ml Sdv) 5 mg IVPUSH ONETIME ONE Stop: 09/14/21 10:28 Last Admin: 09/14/21 10:37 Dose: 5 mg Documented by: Morphine Sulfate (Morphine 2 Mg/Ml Syringe) 2 mg IVPUSH Q4H PRN PRN Reason: Pain Last Admin: 09/12/21 17:54 Dose: 2 mg Documented by: Morphine Sulfate (Morphine 2 Mg/Ml Syringe) 2 mg IVPUSH Q2H PRN PRN Reason: Agitation Last Admin: 09/14/21 00:39 Dose: 2 mg Documented by: Quetiapine Fumarate (Quetiapine 25 Mg Tab) 25 mg PO ONETIME ONE Stop: 09/11/21 23:21 Last Admin: 09/11/21 23:41 Dose: 25 mg Documented by: Scopolamine (Scopolamine 1.5 Mg Transdermal Patch) 1.5 mg TOP ONETIME ONE Stop: 09/12/21 13:31 Last Admin: 09/12/21 14:40 Dose: 1.5 mg Documented by: Sodium Polystyrene Sulfonate (Sodium Polystyrene Sulfonate 15 Gm/60 Ml Susp 60 Ml Bot) 45 gm PO NOW ONE Stop: 09/11/21 23:59 Last Admin: 09/12/21 00:25 Dose: 45 gm Documented by: - Exam Quality Assessment: Denies: Supplemental Oxygen, DVT Prophylaxis General: Reports: Alert, Cooperative, No Acute Distress. Denies: Oriented (Not oriented to person place or time) HEENT: Reports: Pupils Equal, Mucous Membr. Moist/[place] Neck: Reports: Supple, Trachea Midline Lungs: Reports: Normal Respiratory Effort, Decreased Breath Sounds Cardiovascular: Reports: Regular Rate, Regular Rhythm, Murmurs (Systolic) GI/Abdominal Exam: Normal Bowel Sounds, Soft, Non-Tender, No Distention (Male) Exam: Deferred Rectal (Males) Exam: Deferred Back Exam: Reports: Normal Inspection Extremities: Non-Tender, No Pedal Edema. No: Normal Inspection (Riccardo disc oloration noted to bilateral feet) Skin: Reports: Warm, Dry, Intact Neurological: Reports: No New Focal Deficit Psy/Mental Status: Reports: Alert, Normal Affect, Normal Mood *Q Meaningful Use (DIS) - VTE *Q VTE Mechanical Contraindications *Q: At Risk for Falls <Randy Goldstein - Last Filed: 09/15/21 17:05> Discharge Summary - Referral to Home Health Primary Care Physician: Himanshu Underwood MD - Discharge Diagnosis/Problem(s) (1) Hypotension SNOMED Code(s): 44872287 ICD Code: I95.9 - HYPOTENSION, UNSPECIFIED Status: Acute Priority: High Problem Details: Patient's family did not want vasopressors Qualifiers: Hypotension type: other hypotension type Qualified Code(s): I95.89 - Other hypotension (2) Renal failure SNOMED Code(s): 76338568 ICD Code: N19 - UNSPECIFIED KIDNEY FAILURE Status: Acute Priority: High Qualifiers: Renal failure chronicity: acute Acute renal failure type: unspecified Qualified Code(s): N17.9 - Acute kidney failure, unspecified (3) Hyperkalemia SNOMED Code(s): 02075113 ICD Code: E87.5 - HYPERKALEMIA Status: Acute Priority: High - Patient Data Vitals - Most Recent: Last Vital Signs Temp 37.7 C 09/14/21 08:11 Pulse 89 09/14/21 08:11 Resp 22 H 09/14/21 08:11 BP 134/70 09/14/21 08:11 Pulse Ox 96 09/14/21 08:11 Med Orders - Current: Current Medications Discontinued Medications Albuterol (Albuterol 0.083% 2.5 Mg/3 Ml Neb Soln) 2.5 mg NEB ONETIME ONE Stop: 09/11/21 23:59 Last Admin: 09/12/21 00:17 Dose: 2.5 mg Documented by: Calcium Gluconate (Calcium Gluconate 10% 1 Gm/10 Ml Sdv) 1 gm IVPUSH ONETIME ONE Stop: 09/12/21 00:00 Last Admin: 09/12/21 00:24 Dose: 1 gm Documented by: Dextrose/Water (50% Dextrose In Water 50 Ml Syringe) 50 ml IVPUSH ONETIME ONE Stop: 09/12/21 00:00 Last Admin: 09/12/21 00:24 Dose: 50 ml Documented by: Diphenhydramine HCl (Diphenhydramine 50 Mg/Ml Sdv) 25 mg IVPUSH ONETIME ONE Stop: 09/14/21 10:28 Last Admin: 09/14/21 10:36 Dose: 25 mg Documented by: Fentanyl (Fentanyl 100 Mcg/Hr Transdermal Patch) 100 mcg TOP Q3D@0900 [facility] Last Admin: 09/12/21 18:32 Dose: 100 mcg Documented by: Sodium Chloride (Normal Saline) 1,000 mls @ 1,000 mls/hr IV .BOLUS [facility] Last Admin: 09/11/21 21:18 Dose: 1,000 mls/hr Documented by: Lactated Ringer's (Ringers, Lactated) 1,000 mls @ 1,000 mls/hr IV .BOLUS ONE Stop: 09/12/21 00:57 Last Admin: 09/12/21 00:25 Dose: 1,000 mls/hr Documented by: Lactated Ringer's (Ringers, Lactated) 1,000 mls @ 1,000 mls/hr IV .BOLUS ONE Stop: 09/12/21 03:15 Last Admin: 09/12/21 02:20 Dose: 1,000 mls/hr Documented by: Lactated Ringer's (Ringers, Lactated) 1,000 mls @ 50 mls/hr IV ASDIRECTED [facility] Last Admin: 09/13/21 21:31 Dose: 50 mls/hr Documented by: Insulin Human Regular (Insulin Regular, Human 100 Units/Ml 3 Ml Vial) 10 unit SUBCUT ONETIME ONE Stop: 09/12/21 00:01 Last Admin: 09/12/21 00:24 Dose: 10 unit Documented by: Lorazepam (Lorazepam 2 Mg/Ml Sdv) 1 mg IVPUSH ONETIME ONE Stop: 09/12/21 01:27 Last Admin: 09/12/21 01:29 Dose: 1 mg Documented by: Lorazepam (Lorazepam 2 Mg/Ml Sdv) 0.5 mg IVPUSH Q6H PRN PRN Reason: Agitation Last Admin: 09/12/21 17:28 Dose: 0.5 mg Documented by: Lorazepam (Lorazepam 2 Mg/Ml Sdv) 1 mg IVPUSH Q4H PRN PRN Reason: Anxiety Last Admin: 09/14/21 09:41 Dose: 1 mg Documented by: Lorazepam (Lorazepam 2 Mg/Ml Sdv) Confirm Administered Dose 2 mg .ROUTE .STK-MED ONE Stop: 09/12/21 21:25 Last Admin: 09/12/21 21:42 Dose: Not Given Documented by: Metoclopramide HCl (Metoclopramide 10 Mg/2 Ml Sdv) 5 mg IVPUSH ONETIME ONE Stop: 09/14/21 10:28 Last Admin: 09/14/21 10:37 Dose: 5 mg Documented by: Miscellaneous Information (Remove Scopolamine Patch) 1 ea TRDERM ONETIME ONE Stop: 09/15/21 13:31 Miscellaneous Information (Remove Fentanyl Patch) 1 ea TRDERM Q3D@0900 [facility] Last Admin: 09/12/21 18:33 Dose: 1 ea Documented by: Miscellaneous Information (Remove Patch Scopolamine) 1 ea TRDERM Q72H [facility] Morphine Sulfate (Morphine 2 Mg/Ml Syringe) 2 mg IVPUSH Q4H PRN PRN Reason: Pain Last Admin: 09/12/21 17:54 Dose: 2 mg Documented by: Morphine Sulfate (Morphine 2 Mg/Ml Syringe) 2 mg IVPUSH Q2H PRN PRN Reason: Agitation Last Admin: 09/14/21 00:39 Dose: 2 mg Documented by: Morphine Sulfate (Morphine 2 Mg/Ml Syringe) 2 mg IVPUSH Q1H PRN PRN Reason: Pain Last Admin: 09/14/21 13:26 Dose: 2 mg Documented by: Quetiapine Fumarate (Quetiapine 25 Mg Tab) 25 mg PO ONETIME ONE Stop: 09/11/21 23:21 Last Admin: 09/11/21 23:41 Dose: 25 mg Documented by: Scopolamine (Scopolamine 1.5 Mg Transdermal Patch) 1.5 mg TOP ONETIME ONE Stop: 09/12/21 13:31 Last Admin: 09/12/21 14:40 Dose: 1.5 mg Documented by: Scopolamine (Scopolamine 1.5 Mg Transdermal Patch) 1.5 mg TOP Q72H [facility] Sodium Chloride (Sodium Chloride 0.9% 10 Ml Syringe) 10 ml FLUSH ASDIRECTED PRN PRN Reason: Keep Vein Open Last Admin: 09/11/21 21:18 Dose: 10 ml Documented by: Sodium Polystyrene Sulfonate (Sodium Polystyrene Sulfonate 15 Gm/60 Ml Susp 60 Ml Bot) 45 gm PO NOW ONE Stop: 09/11/21 23:59 Last Admin: 09/12/21 00:25 Dose: 45 gm Documented by: - Free Text/Narrative Note: I have seen and examined the patient independently of SHINE Goldberg, and I have discussed the case with her. I have reviewed and agree with the plan of care as outlined by her. Please see orders. Patient's overall prognosis remains poor.
[2021-09-15] MEDS ORDERED: Scopolamine 1.5 MG Transdermal Patch TOP SCH (13:30)
== END 2021-09-14 13:40 | DRG 684 ==
LOC: JD.ED 20:44 → JD.MS 09-12 11:46
PROVIDERS: ADMIT Internal Medicine; ATTEND Internal Medicine
DX: N17.9 Acute kidney failure, unspecified (principal); R53.1 Weakness; E87.5 Hyperkalemia; Z66 Do not resuscitate; Z51.5 Encounter for palliative care; I95.89 Other hypotension; H91.90 Unspecified hearing loss, unspecified ear; H54.7 Unspecified visual loss; I25.10 Atherosclerotic heart disease of native coronary artery without angina pectoris; H54.40 Blindness, one eye, unspecified eye; E78.00 Pure hypercholesterolemia, unspecified; I11.0 Hypertensive heart disease with heart failure; I50.9 Heart failure, unspecified; G47.30 Sleep apnea, unspecified; J44.9 Chronic obstructive pulmonary disease, unspecified; F03.90 Unspecified dementia, unspecified severity, without behavioral disturbance, psychotic disturbance, mood disturbance, and anxiety; M19.90 Unspecified osteoarthritis, unspecified site; M54.9 Dorsalgia, unspecified; E03.9 Hypothyroidism, unspecified; G89.29 Other chronic pain; Z79.890 Hormone replacement therapy; Z88.8 Allergy status to other drugs, medicaments and biological substances; Z79.899 Other long term (current) drug therapy; Z86.16 Personal history of COVID-19
CPT/HCPCS: 36415 ×2; 70450; 71045; 80053 ×3; 81001; 84484; 85025; 86140; 93005; 94640; 96374; 96375; 99285; A9270 ×2; J0610; J1815; J2060; J7030; J7120 ×2; 87641; J1200; J2270; J2765